=== PATIENT | male | born 1960 | race Caucasian/White ===

== ENCOUNTER → 2016-05-14 | Outpatient (CLI) | payer MEDICARE, OTHER ==
--- NOTE | 2016-05-14 10:43 | US ---
EXAMINATION TYPE: US abdomen complete DATE OF EXAM: 05/14/2016 9:50 AM COMPARISON: NONE CLINICAL HISTORY: R14.0 Abdominal Bloating,K21.9 Gastro Esoph Reflux. Left flank pain, history of kid mana stones EXAM MEASUREMENTS: Liver Length: 17.3 cm Gallbladder Wall: 0.2 cm CBD: 0.5 cm Spleen: 10.3 cm Right Kidney: 11.8 x 4.6 x 5.9 cm Left Kidney: 11.2 x 5.1 x 5.2 cm TECHNOLOGIST IMPRESSION: Pancreas: Obscured by overlying bowel gas Liver: heterogeneous Gallbladder: no evidence of stones Evidence for sonographic Allen's sign: no CBD: appears wnl Spleen: appears wnl Right Kidney: cystic area upper pole = 2.4 x 2.5 x 2.5cm Left Kidney: lobulated contour Upper IVC: appears wnl Abd Aorta: visualized portions appear wnl The liver is homogenous. The intrahepatic portion of the IVC and proximal abdominal aorta are within normal limits. There is no evidence of cholelithiasis. Common bile duct is unremarkable. The visu alized portions of the pancreas are homogenous. The spleen is unremarkable. Kidneys are symmetric a nd free of hydronephrosis. No renal lesions are seen. IMPRESSION: 1. Nonvisualization of the pancreas. 2. Simple appearing 2.5 cm right upper pole renal cyst.
== END | disposition home or self-care (01) ==
LOC: RADUSWWP 08:55
PROVIDERS: ATTEND Family Medicine
DX: N28.1 Cyst of kidney, acquired (principal); K21.9 Gastro-esophageal reflux disease without esophagitis; J44.1 Chronic obstructive pulmonary disease with (acute) exacerbation; R14.0 Abdominal distension (gaseous)
CPT/HCPCS: 76700

== ENCOUNTER → 2016-07-03 | Outpatient (CLI) | payer MEDICARE, OTHER ==
[2016-07-03 09:20] LABS: Basophils % (A) 0 %; Eosinophils # (A) 0.2 k/uL (0-0.7); Eosinophils % (A) 3 %; HCT 49.8 % (39.0-53.0); HDW 2.74; HGB 16.9 gm/dL (13.0-17.5); Luc # (Auto) 0.16; Luc % (Auto) 2; Lymphocytes # (A) 1.6 k/uL (1.0-4.8); Lymphocytes % (A) 23 %; MCH 32.2 pg (25.0-35.0); MCV 94.8 fL (80.0-100.0); Mean Platelet Volume 6.5; Monocytes # (A) 0.4 k/uL (0-1.0); Monocytes % (A) 6 %; Neutrophils # (A) 4.5 k/uL (1.3-7.7); Neutrophils % (A) 65 %; RBC 5.25 m/uL (4.30-5.90); WBC 6.8 k/uL (3.8-10.6); WBC (Perox) 7.35
[2016-07-03 09:28] LABS: ALT 38 U/L (21-72); AST 23 U/L (17-59); Alkaline Phosphatase 88 U/L (38-126); Amylase 54 U/L (30-110); Anion Gap 8 mmol/L; Blood Urea Nitrogen 10 mg/dL (9-20); Calcium 9.6 mg/dL (8.4-10.2); Carbon Dioxide 30 mmol/L (22-30); Chloride 102 mmol/L (98-107); Glucose 95 mg/dL (74-99); Non-African American GFR(MDRD) >60 (>60 ml/min/1.73 sqM); Potassium 4.2 mmol/L (3.5-5.1); Sodium 140 mmol/L (137-145); Total Protein 7.2 g/dL (6.3-8.2)
--- NOTE | 2016-07-03 09:59 | CT ---
EXAMINATION TYPE: CT abdomen pelvis wo/w con DATE OF EXAM: 07/03/2016 9:26 AM COMPARISON: Ultrasound 05/14/2016 HISTORY: 55-year-old male with change in bowel habits TECHNIQUE: Contiguous axial scanning of the abdomen and pelvis before and after administration of 100 ml Omnipaque 300 IV contrast. Delayed images through the kidneys and coronal/sagittal reconstructio ns performed. CT DLP: 2413.1 mGycm Automated exposure control for dose reduction was used. FINDINGS: The heart is normal size without pericardial effusion. Dependent atelectasis at the posterior lung ba ses. Strandy atelectasis inferior lingula and mild centrilobular emphysema seen in the lower lungs. N o pleural effusion. The liver is borderline in size measuring 17.9 cm craniocaudal. Initial noncontrast images show no ev idence for hepatic steatosis. No focal liver lesion is seen. No biliary ductal dilatation. Portal kimberli ous system is patent. Gallbladder, adrenal glands, spleen, and pancreas appear within normal limits. There is a 2.8 cm benign exophytic cyst from the lateral upper pole right kidney and cortical defect along the lateral mid pole left kidney suggesting prior vascular or infectious insult. Symmetric upta ke and excretion of contrast from the kidneys. No dilated small bowel, free fluid, or free air. Small fatty umbilical hernia. No mesenteric or retroperitoneal lymphadenopathy. Normal appendix. Oral contrast has progressed to the descending colon. There is mild to moderate stool burden and mild sigmoid diverticulosis without pericolonic inflammatory change. No suspicious annular narrowing or m ass by CT. Bladder is urine distended. No abnormal fluid collection in the pelvis or pelvic lymphadenopathy. Bones: Degenerative changes at the hips. Mild degenerative disc disease L5-S1. No osseous destructive process. IMPRESSION: 1. MILD TO MODERATE STOOL BURDEN AND SIGMOID DIVERTICULOSIS. NO EVIDENCE FOR ACUTE DIVERTICULITIS. 2. CENTRILOBULAR EMPHYSEMA AND SMALL FATTY UMBILICAL HERNIA.
[2016-07-03 10:07] LABS: C Reactive Protein <5.0 mg/L (<10.0)
[2016-07-03 12:01] LABS: Erythrocyte Sedimentation Rate 4 mm/hr (0-15)
== END | disposition home or self-care (01) ==
LOC: RADCTMAIN 08:41
DX: K57.30 Diverticulosis of large intestine without perforation or abscess without bleeding (principal); R19.5 Other fecal abnormalities; K42.9 Umbilical hernia without obstruction or gangrene
CPT/HCPCS: 80053; 85652; 83516; 82150; 83690; 85025; 86140; 74178; 36415; Q9967

== ENCOUNTER 2017-06-08 00:31 | Emergency (ER) | payer MEDICARE, OTHER ==
[2017-06-08 01:03] LABS: Basophils # (A) 0.1 k/uL (0-0.2); Basophils % (A) 1 %; Eosinophils # (A) 0.3 k/uL (0-0.7); Eosinophils % (A) 3 %; HCT 50.5 % (39.0-53.0); HGB 17.5 gm/dL (13.0-17.5); Lymphocytes # (A) 2.2 k/uL (1.0-4.8); Lymphocytes % (A) 25 %; MCH 32.9 pg (25.0-35.0); MCHC 34.7 g/dL (31.0-37.0); Mean Platelet Volume 6.7; Monocytes # (A) 0.5 k/uL (0-1.0); Monocytes % (A) 6 %; Neutrophils # (A) 5.7 k/uL (1.3-7.7); Neutrophils % (A) 63 %; Platelet Count 215 k/uL (150-450); RBC 5.32 m/uL (4.30-5.90); RDW 12.3 % (11.5-15.5)
[2017-06-08 01:09] LABS: Partial Thromboplastin Time 27.3 sec (22.0-30.0); Prothrombin Time 9.7 sec (9.0-12.0)
[2017-06-08 01:19] LABS: ALT 36 U/L (21-72); AST 29 U/L (17-59); Albumin 4.5 g/dL (3.5-5.0); Alkaline Phosphatase 94 U/L (38-126); Anion Gap 10 mmol/L; Blood Urea Nitrogen 13 mg/dL (9-20); Calcium 10.1 mg/dL (8.4-10.2); Carbon Dioxide 29 mmol/L (22-30); Chloride 101 mmol/L (98-107); Glucose 102 mg/dL (74-99); Potassium 4.6 mmol/L (3.5-5.1); Sodium 140 mmol/L (137-145); Total Bilirubin 0.6 mg/dL (0.2-1.3); Total Protein 7.3 g/dL (6.3-8.2)
--- NOTE | 2017-06-08 01:23 | ED ---
General Adult HPI - General Chief complaint: Shortness of Breath Stated complaint: Chest Pain Time Seen by Provider: 06/08/17 00:43 Source: patient, RN notes reviewed, old records reviewed Mode of arrival: wheelchair Limitations: no limitations - History of Present Illness Initial comments: 56-year-old male presenting for evaluation of chest pain. Patient states that throughout the day he has had some central chest heaviness. He states he does have history of COPD and his had a mild cough throughout the day. According to the patient his cough is no worse than his baseline cough. He is a current smoker, although he is quitting. Patient states that he's had several episodes of sharp intermittent left-sided chest pain which come and go quickly. He has also complained of some abdominal distention and bloating. Denies any significant abdominal pain at the time my evaluation. Patient denies nausea vomiting or diaphoresis. No known history of coronary artery disease, according to the patient had a heart catheterization 6 years ago which was normal. - Related Data Home Medications Medication Instructions Recorded Confirmed Fluticasone Propionate [Flonase] 2 spray EA NOSTRIL DAILY PRN 06/07/14 12/09/14 Fluticasone Propionate [Flovent 2 puff INHALATION BID 06/07/14 12/09/14 Hfa 110mcg] HYDROcodone/APAP 10-325MG [Lewis 1 each PO Q6H PRN 06/07/14 12/09/14 10] Ipratropium-Albuterol Nebulize 3 ml IH QID PRN 06/07/14 12/09/14 [Duoneb 0.5 mg-3 mg/3 ml Soln] LORazepam [Ativan] 1 mg PO BID PRN 06/07/14 12/09/14 Nystatin 100,000 Unit/ml Susp 5 ml PO QID PRN 06/07/14 12/09/14 [Mycostatin Oral Susp] Omeprazole [PriLOSEC] 20 mg PO AC-BRKFST 06/07/14 12/09/14 Allergies Allergy/AdvReac Type Severity Reaction Status Date / Time No Known Allergies Allergy Verified 12/09/14 19:59 Review of Systems ROS Statement: Those systems with pertinent positive or pertinent negative responses have been documented in the HPI. ROS Other: All systems not noted in ROS Statement are negative. Past Medical History Past Medical History: Asthma, COPD, Hypertension Additional Past Medical History / Comment(s): SHINGLES (NO OPEN LESIONS) History of Any Multi-Drug Resistant Organisms: None Reported Past Surgical History: Heart Catheterization Past Psychological History: Anxiety Smoking Status: Current every day smoker Past Alcohol Use History: None Reported Past Drug Use History: Marijuana General Exam Limitations: no limitations General appearance: alert, in no apparent distress Head exam: Present: atraumatic, normocephalic Eye exam: Present: normal appearance, PERRL ENT exam: Present: normal exam Neck exam: Present: normal inspection, tenderness Respiratory exam: Present: decreased breath sounds. Absent: wheezes Cardiovascular Exam: Present: regular rate, normal rhythm GI/Abdominal exam: Present: soft, distended. Absent: tenderness, guarding, rebound Extremities exam: Present: normal inspection, normal capillary refill, other ( Bilateral radial pulses symmetric). Absent: pedal edema Neurological exam: Present: alert, oriented X3, CN II-XII intact. Absent: motor sensory deficit Psychiatric exam: Present: normal affect, normal mood Skin exam: Present: warm, dry, intact. Absent: cyanosis, diaphoretic Course Vital Signs 06/08/17 06/08/17 06/08/17 00:33 00:54 02:00 Temperature 98.0 F Pulse Rate 89 82 Pulse Rate [ [address] ] Respiratory 16 20 Rate Blood Pressure 199/95 135/76 O2 Sat by Pulse 99 97 Oximetry EKG Findings - EKG Comments: EKG Findings:: EKG shows normal sinus rhythm, ventricular rate 83, OR interval 172, QRS duration 88, QTC 410, no ST segment elevation or depression Medical Decision Making - Medical Decision Making 56-year-old male presenting with chest pain. Patient has baseline chest tightness secondary to COPD. He states that today he developed some sharp chest pain. On initial evaluation, patient has significantly elevated blood pressure, this is the setting of sharp chest pain is concerning for aortic dissection as the patient is a long-time heavy smoker. CT angiography of the chest abdomen and pelvis is obtained, this is negative for dissection, negative for PE or aortic aneurysm. Chest x-ray shows no focal pneumonia or widened mediastinum. Laboratory studies including CBC and CMP are unremarkable. Initial troponin is negative. I would prefer the patient be observed for his chest pain although it is atypical, he does have significant risk factors for coronary artery disease. Patient refuses this, states he would like to be discharged and will follow-up with his primary care physician. I did have a discussion with the patient stating that a complete evaluation of his chest pain has not been completed he is aware and prefers to be discharged with outpatient follow-up - Lab Data Result diagrams: 06/08/17 00:45 06/08/17 00:45 Lab Results 06/08/17 06/08/17 06/08/17 Range/Units 00:45 00:45 00:45 WBC 9.0 (3.8-10.6) k/uL RBC 5.32 (4.30-5.90) m/uL Hgb 17.5 (13.0-17.5) gm/dL Hct 50.5 (39.0-53.0) % MCV 95.0 (80.0-100.0) fL MCH 32.9 (25.0-35.0) pg MCHC 34.7 (31.0-37.0) g/dL RDW 12.3 (11.5-15.5) % Plt Count 215 (150-450) k/uL Neutrophils % 63 % Lymphocytes % 25 % Monocytes % 6 % Eosinophils % 3 % Basophils % 1 % Neutrophils # 5.7 (1.3-7.7) k/uL Lymphocytes # 2.2 (1.0-4.8) k/uL Monocytes # 0.5 (0-1.0) k/uL Eosinophils # 0.3 (0-0.7) k/uL Basophils # 0.1 (0-0.2) k/uL PT (9.0-12.0) sec INR (<1.2) APTT (22.0-30.0) sec D-Dimer (<0.60) mg/L FEU Sodium 140 (137-145) mmol/L Potassium 4.6 (3.5-5.1) mmol/L Chloride 101 (98-107) mmol/L Carbon Dioxide 29 (22-30) mmol/L Anion Gap 10 mmol/L BUN 13 (9-20) mg/dL Creatinine 0.80 (0.66-1.25) mg/dL Est GFR (MDRD) Af Amer >60 (>60 ml/min/1.73 sqM) Est GFR (MDRD) Non-Af >60 (>60 ml/min/1.73 sqM) Glucose 102 H (74-99) mg/dL Calcium 10.1 (8.4-10.2) mg/dL Total Bilirubin 0.6 (0.2-1.3) mg/dL AST 29 (17-59) U/L ALT 36 (21-72) U/L Alkaline Phosphatase 94 (38-126) U/L Total Creatine Kinase 250 H (55-170) U/L CK-MB (CK-2) 1.8 (0.0-2.4) ng/mL CK-MB (CK-2) Rel Index 0.7 Troponin I <0.012 (0.000-0.034) ng/mL NT-Pro-B Natriuret Pep pg/mL Total Protein 7.3 (6.3-8.2) g/dL Albumin 4.5 (3.5-5.0) g/dL Lipase (23-300) U/L 06/08/17 06/08/17 06/08/17 Range/Units 00:45 00:45 00:45 WBC (3.8-10.6) k/uL RBC (4.30-5.90) m/uL Hgb (13.0-17.5) gm/dL Hct (39.0-53.0) % MCV (80.0-100.0) fL MCH (25.0-35.0) pg MCHC (31.0-37.0) g/dL RDW (11.5-15.5) % Plt Count (150-450) k/uL Neutrophils % % Lymphocytes % % Monocytes % % Eosinophils % % Basophils % % Neutrophils # (1.3-7.7) k/uL Lymphocytes # (1.0-4.8) k/uL Monocytes # (0-1.0) k/uL Eosinophils # (0-0.7) k/uL Basophils # (0-0.2) k/uL PT 9.7 (9.0-12.0) sec INR 1.0 (<1.2) APTT 27.3 (22.0-30.0) sec D-Dimer 0.24 (<0.60) mg/L FEU Sodium (137-145) mmol/L Potassium (3.5-5.1) mmol/L Chloride (98-107) mmol/L Carbon Dioxide (22-30) mmol/L Anion Gap mmol/L BUN (9-20) mg/dL Creatinine (0.66-1.25) mg/dL Est GFR (MDRD) Af Amer (>60 ml/min/1.73 sqM) Est GFR (MDRD) Non-Af (>60 ml/min/1.73 sqM) Glucose (74-99) mg/dL Calcium (8.4-10.2) mg/dL Total Bilirubin (0.2-1.3) mg/dL AST (17-59) U/L ALT (21-72) U/L Alkaline Phosphatase (38-126) U/L Total Creatine Kinase (55-170) U/L CK-MB (CK-2) (0.0-2.4) ng/mL CK-MB (CK-2) Rel Index Troponin I (0.000-0.034) ng/mL NT-Pro-B Natriuret Pep pg/mL Total Protein (6.3-8.2) g/dL Albumin (3.5-5.0) g/dL Lipase 231 (23-300) U/L 06/08/17 Range/Units 00:45 WBC (3.8-10.6) k/uL RBC (4.30-5.90) m/uL Hgb (13.0-17.5) gm/dL Hct (39.0-53.0) % MCV (80.0-100.0) fL MCH (25.0-35.0) pg MCHC (31.0-37.0) g/dL RDW (11.5-15.5) % Plt Count (150-450) k/uL Neutrophils % % Lymphocytes % % Monocytes % % Eosinophils % % Basophils % % Neutrophils # (1.3-7.7) k/uL Lymphocytes # (1.0-4.8) k/uL Monocytes # (0-1.0) k/uL Eosinophils # (0-0.7) k/uL Basophils # (0-0.2) k/uL PT (9.0-12.0) sec INR (<1.2) APTT (22.0-30.0) sec D-Dimer (<0.60) mg/L FEU Sodium (137-145) mmol/L Potassium (3.5-5.1) mmol/L Chloride (98-107) mmol/L Carbon Dioxide (22-30) mmol/L Anion Gap mmol/L BUN (9-20) mg/dL Creatinine (0.66-1.25) mg/dL Est GFR (MDRD) Af Amer (>60 ml/min/1.73 sqM) Est GFR (MDRD) Non-Af (>60 ml/min/1.73 sqM) Glucose (74-99) mg/dL Calcium (8.4-10.2) mg/dL Total Bilirubin (0.2-1.3) mg/dL AST (17-59) U/L ALT (21-72) U/L Alkaline Phosphatase (38-126) U/L Total Creatine Kinase (55-170) U/L CK-MB (CK-2) (0.0-2.4) ng/mL CK-MB (CK-2) Rel Index Troponin I (0.000-0.034) ng/mL NT-Pro-B Natriuret Pep 29 pg/mL Total Protein (6.3-8.2) g/dL Albumin (3.5-5.0) g/dL Lipase (23-300) U/L Disposition Clinical Impression: Chest pain Disposition: HOME SELF-CARE Condition: Fair Instructions: Chest Pain (ED) Additional Instructions: Patient will follow-up with his primary care physician, return with any worsening or changing symptoms. Referrals: Gerald Fernandez DO [Primary Care Provider] - 1-2 days Time of Disposition: 03:15
[2017-06-08 01:24] LABS: Creatine Kinase 250 U/L (55-170)
[2017-06-08 01:37] LABS: Troponin I <0.012 ng/mL (0.000-0.034)
[2017-06-08 01:42] LABS: Creatine Kinase MB 1.8 ng/mL (0.0-2.4)
--- NOTE | 2017-06-08 01:57 | XR ---
EXAMINATION TYPE: XR chest 2V DATE OF EXAM: 06/08/2017 COMPARISON: NONE HISTORY: Short of breath TECHNIQUE: Frontal and lateral views of the chest are obtained. FINDINGS: Heart and mediastinum are normal. Lungs are clear. Diaphragm is normal. Bony thorax is int act. Pulmonary vascularity is normal. There are chest leads. IMPRESSION: Normal chest
[2017-06-08] MEDS ORDERED: RX INFO: IV CONTRAST WAS GIVEN 1 EACH MISC MISCELLANE PRN (01:58)
--- NOTE | 2017-06-08 02:58 | CT ---
EXAMINATION TYPE: CT angio thoracic/abd aorta DATE OF EXAM: 06/08/2017 COMPARISON: NONE HISTORY: chest pain CT DLP: 2133.90 mGycm. Automated Exposure Control for Dose Reduction was Utilized. CONTRAST: CT scan of the thorax, abdomen and pelvis is performed with IV Contrast, patient injected with 100 mL of Omnipaque 350. FINDINGS: There are 3-D post processed images. There is mild pulmonary emphysema with bullous changes at the lung apices. There is normal branching pattern of the great vessels on the aortic arch. Thoracic aorta is intact without evidence of aneurys m or dissection. Ascending aorta measures 3.5 cm. There is no mediastinal adenopathy. There are no hi lar masses. Abdominal aorta has normal size without evidence of aneurysm or dissection. There is mild atheromatou s change in the iliac arteries. There is bilateral wide patency of the renal arteries. There is wide patency of the celiac artery and the superior mesenteric artery. Liver spleen pancreas appear normal. Bile ducts are not dilated. Gallbladder is somewhat contracted. Kidneys have normal contrast opacification. There is no hydronephrosis. There is a 3 cm cortical cyst on the lateral right kidney. There is no retroperitoneal adenopathy. I see no intestinal wall thicke musa. Appendix appears normal. There is arterial flow in the common internal and external iliac arter ies. There is arterial flow in both femoral arteries. I see no bony destructive process. Bladder dist ends smoothly. There is no evidence of a pelvic mass. CONCLUSION: Negative CT angiogram of the thoracic and abdominal aorta. Minimal atherosclerotic changes. No eviden ce of aneurysm or dissection. Pulmonary emphysema. Right renal cortical cyst.
[2017-06-08 03:17] VITALS: BP 124/76; PULSE 78; RESP 18; TEMP 97.6
== END 2017-06-08 03:21 | disposition home or self-care (01) ==
LOC: EC 00:31
DX: R07.9 Chest pain, unspecified (principal); R14.0 Abdominal distension (gaseous); R05 Cough; J44.9 Chronic obstructive pulmonary disease, unspecified; F17.200 Nicotine dependence, unspecified, uncomplicated; Z79.51 Long term (current) use of inhaled steroids; Z79.899 Other long term (current) drug therapy; Z95.9 Presence of cardiac and vascular implant and graft, unspecified
CPT/HCPCS: 36415; 93005; 85379; 83880; 80053; 82550; 82553; 83690; 84484; 85025; 85610; 85730; 71046; 75635; 71275; 99285; Q9967

== ENCOUNTER 2017-12-06 17:54 | Emergency (ER) | payer MEDICARE, OTHER ==
[2017-12-06 18:01] VITALS: BP 167/94; PULSE 82; RESP 20; TEMP 98.4
[2017-12-06] MEDS ORDERED: IBUPROFEN 600 MG TAB PO STA (18:18)
--- NOTE | 2017-12-06 19:05 | ED ---
Upper Extremity HPI - General Chief Complaint: Extremity Injury, Upper Stated Complaint: shoulder injury Time Seen by Provider: 12/06/17 18:10 Source: patient Mode of arrival: ambulatory Limitations: no limitations - History of Present Illness Initial Comments: This a 57yo male past medical history of chronic shoulder pain, asthma, hypertension and COPD with previous left shoulder surgery who presents today for chief complaint of right shoulder pain times one day. Patient states that he was trying out a tire off a tractor yesterday at 9 AM when he felt/heard a tearing in his right shoulder. Patient stated the pain radiated towards the right side of his neck and distal towards his elbow. Patient admitted to paresthesias. Patient denies any numbness, loss sensation or muscle weakness. Patient stated the pain is a 7/10 aching pain localized to the right anterior shoulder that increases to 10/10 sharp pain with movement. Patient does not know which specific movement causes increased pain. Patient has tried icing, taking Vicodin he has left over from previous injury and using cannabis for pain management. When the pain persisted today he decided to present to the emergency room for further evaluation. Patient denies any recent fever, chills, shortness of breath, chest pain, back pain, abdominal pain, nausea or vomiting, numbness or tingling, dysuria or hematuria, constipation or diarrhea, headaches or visual changes, or any other complaints. - Related Data Home Medications Medication Instructions Recorded Confirmed Fluticasone Propionate [Flonase] 2 spray EA NOSTRIL DAILY PRN 06/07/14 12/09/14 Fluticasone Propionate [Flovent 2 puff INHALATION BID 06/07/14 12/09/14 Hfa 110mcg] HYDROcodone/APAP 10-325MG [[place] 1 each PO Q6H PRN 06/07/14 12/09/14 10] Ipratropium-Albuterol Nebulize 3 ml IH QID PRN 06/07/14 12/09/14 [Duoneb 0.5 mg-3 mg/3 ml Soln] LORazepam [Ativan] 1 mg PO BID PRN 06/07/14 12/09/14 Nystatin 100,000 Unit/ml Susp 5 ml PO QID PRN 06/07/14 12/09/14 [Mycostatin Oral Susp] Omeprazole [PriLOSEC] 20 mg PO AC-BRKFST 06/07/14 12/09/14 Previous Rx's Medication Instructions Recorded Ibuprofen [Motrin] 800 mg PO Q8H PRN 7 Days #21 tab 12/06/17 Allergies Allergy/AdvReac Type Severity Reaction Status Date / Time varenicline [From Chantix] Allergy Unknown Verified 12/06/17 18:01 Review of Systems ROS Statement: Those systems with pertinent positive or pertinent negative responses have been documented in the HPI. ROS Other: All systems not noted in ROS Statement are negative. Constitutional: Denies: fever, chills ENT: Denies: ear pain, throat pain Respiratory: Denies: cough, dyspnea Cardiovascular: Denies: chest pain, palpitations, edema Gastrointestinal: Denies: abdominal pain, nausea, vomiting, diarrhea, constipation Genitourinary: Denies: urgency, dysuria, frequency Musculoskeletal: Reports: arthralgia Skin: Denies: rash, lesions Neurological: Denies: headache, weakness, numbness, paresthesias, confusion Past Medical History Past Medical History: Asthma, COPD, Hypertension Additional Past Medical History / Comment(s): SHINGLES (NO OPEN LESIONS) History of Any Multi-Drug Resistant Organisms: None Reported Past Surgical History: Heart Catheterization Past Psychological History: Anxiety Smoking Status: Current every day smoker Past Alcohol Use History: None Reported Past Drug Use History: Marijuana General Exam - General Exam Comments Initial Comments: General: The patient is awake and alert, in no distress, and does not appear acutely ill. Eye: Pupils are equal, extra-ocular movements are intact. No nystagmus. There is normal conjunctiva bilaterally. No signs of icterus. Neck: The neck is supple, there is no tenderness or JVD. Cardiovascular: There is a regular rate and rhythm. No murmur, rub or gallop is appreciated. Respiratory: Lungs are clear to auscultation, respirations are non-labored, breath sounds are equal. No wheezes, stridor, rales, or rhonchi. Musculoskeletal: No obvious defect or deformity. Full ROM with forward flexion , hyperextension, internal and external rotation at the shoulder b/l, pain which all movements especially forward flexion of the right shoulder. Strength 5/5 with all movements. Tenderness to palpation over the anterior shoulder, no pain over the scapula or clavicle. Sensation intact of the UE equally b/l. Radial pulses equal bilaterally 2+. Pt able to make the ok, thumbs up, finger opposition, fingers crossed, and stop signs with the hands b/l. Ulnar median and radial nerves intact. (+) Neers, (-) Drop Arm, no winging of scapula, (+) empty can Neurological: A&O x 3. CN II-XII intact, There are no obvious motor or sensory deficits. Coordination appears grossly intact. Speech is normal. Skin: Skin is warm and dry and no rashes or lesions are noted. Psychiatric: Cooperative, appropriate mood & affect, normal judgment. Limitations: no limitations Course Vital Signs 12/06/17 17:59 Temperature 98.4 F Pulse Rate 82 Respiratory 20 Rate Blood Pressure 167/94 O2 Sat by Pulse 98 Oximetry Medical Decision Making - Medical Decision Making 57yo male with cc of right shoulder pain concerning for possible dislocation, or muscular injury. Pt given ibuprofen for pain mgmt. XR obtained revealing (-) for acute fracture or dislocation. There is evidence of arthritis. X-rays reviewed by myself, Dr. Mcpherson in radiology. Given history and physical examination findings I have concern for possible ligamentous or muscular injury. Patient neurovascularly intact, compartments soft and compressible. Case discussed in detail Dr. Mcpherson at this time we feel patient would benefit from orthopedic surgery follow-up and RICE instructions. Patient was requesting a Toradol shot prior to discharge for pain management. Patient was discharged with orthopedic surgery follow-up 1-2 days, use of [id number] Tylenol or ibuprofen for pain management, ice for 20 minutes 3 times a day and no rigorous activity until further orthopedic evaluation. Patient agreed with plan, verbalizing agreement. Patient discharged in stable condition. Disposition Clinical Impression: Acute pain of right shoulder Disposition: HOME SELF-CARE Condition: Good Instructions: Shoulder Pain (ED) Additional Instructions: Please use medication as discussed. Please follow-up with orthopedic surgery in 2-3 days for further evaluation and treatment. Please return to emergency room if the symptoms increase or worsen or for any other concerns. Prescriptions: Ibuprofen [Motrin] 800 mg PO Q8H PRN 7 Days #21 tab PRN Reason: Pain Is patient prescribed a controlled substance at d/c from ED?: No Referrals: Gerald Fernandez DO [Primary Care Provider] - 1-2 days Mani Huynh PAC [PHYSICIAN [employer]ING MACHINE FEEDER] - 1-2 days Time of Disposition: 19:13
[2017-12-06] MEDS ORDERED: KETOROLAC 30 MG/ML 1 ML VIAL IM STA (19:15)
--- NOTE | 2017-12-06 19:25 | XR ---
EXAMINATION TYPE: XR shoulder complete RT DATE OF EXAM: 12/06/2017 CLINICAL HISTORY: Right shoulder pain TECHNIQUE: Three views of the right shoulder are obtained. COMPARISON: None. FINDINGS: There is no acute fracture/dislocation evident in the right shoulder. The acromioclavicul ar and glenohumeral joint spaces appear within normal limits. The visualized ribs are intact and unr emarkable. IMPRESSION: There is no acute fracture or dislocation in the right shoulder.
== END 2017-12-06 19:30 | disposition home or self-care (01) ==
LOC: EC 17:54
DX: M25.511 Pain in right shoulder (principal); J44.9 Chronic obstructive pulmonary disease, unspecified; F17.200 Nicotine dependence, unspecified, uncomplicated; Z79.51 Long term (current) use of inhaled steroids; Z79.899 Other long term (current) drug therapy; Z88.8 Allergy status to other drugs, medicaments and biological substances
CPT/HCPCS: 73030; 99283; 96372; J1885

== ENCOUNTER 2018-06-10 18:12 | Observation (INO) | payer MEDICARE ==
[2018-06-10] MEDS ORDERED: SODIUM CHLORIDE 0.9% 500 ML 500 ML IV STA (18:43)
[2018-06-10] MEDS ORDERED: PANTOPRAZOLE 40 MG/10 ML VIAL IVP STA (18:43)
--- NOTE | 2018-06-10 19:01 | ED ---
General Adult HPI - General Chief complaint: GI Bleed Stated complaint: Blood in stool, abd pain Time Seen by Provider: 06/10/18 18:33 Source: patient, RN notes reviewed, old records reviewed Mode of arrival: ambulatory - History of Present Illness Initial comments: 57-year-old male presented for evaluation of diffuse abdominal pain, rectal bleeding and diarrhea. Patient has had intermittent abdominal pain and rectal bleeding for several years. He has been evaluated by gastroenterology. He has been told that he had diverticulitis, told to get ulcerative colitis, then after his most recent colonoscopy was told he did not have ulcerative colitis. Symptoms have been progressive over the past one week. He has had rectal bleeding with mucus, and diarrhea. Mild nausea and vomiting. No upper abdominal pain, no chest pain. - Related Data Home Medications Medication Instructions Recorded Confirmed Omeprazole [PriLOSEC] 20 mg PO DAILY PRN 06/07/14 06/10/18 Albuterol Nebulized [Ventolin 2.5 mg INHALATION Q6H 06/10/18 06/10/18 Nebulized] Albuterol Sulfate [Proair Hfa] 2 puff INHALATION RT-Q6H PRN 06/10/18 06/10/18 Fluticasone/Vilanterol [Breo 1 puff INHALATION RT-DAILY 06/10/18 06/10/18 Ellipta 200-25 Mcg INH] Ipratropium Nebulized [Atrovent 0.5 mg INHALATION Q6HR 06/10/18 06/10/18 Nebulized 0.2 MG/ML] Magnesium 200 mg PO DAILY 06/10/18 06/10/18 Milk Thistle 150 mg PO DAILY 06/10/18 06/10/18 Multivitamins, Thera [Multivitamin 1 tab PO DAILY 06/10/18 06/10/18 (formulary)] Allergies Allergy/AdvReac Type Severity Reaction Status Date / Time varenicline [From Chantix] AdvReac suicidal Verified 06/10/18 18:38 thoughts Review of Systems ROS Statement: Those systems with pertinent positive or pertinent negative responses have been documented in the HPI. ROS Other: All systems not noted in ROS Statement are negative. Past Medical History Past Medical History: Asthma, COPD, Hypertension Additional Past Medical History / Comment(s): SHINGLES (NO OPEN LESIONS) History of Any Multi-Drug Resistant Organisms: None Reported Past Surgical History: Heart Catheterization Past Psychological History: Anxiety Smoking Status: Current every day smoker Past Alcohol Use History: None Reported Past Drug Use History: Marijuana General Exam General appearance: alert, in no apparent distress Head exam: Present: atraumatic, normocephalic Eye exam: Present: normal appearance, PERRL ENT exam: Present: normal exam Neck exam: Present: normal inspection. Absent: tenderness, meningismus Respiratory exam: Present: normal lung sounds bilaterally. Absent: respiratory distress, wheezes Cardiovascular Exam: Present: regular rate, normal rhythm GI/Abdominal exam: Present: soft, tenderness (Mild generalized tenderness to palpation). Absent: distended Extremities exam: Present: normal inspection, normal capillary refill Neurological exam: Present: alert, oriented X3 Psychiatric exam: Present: normal affect, normal mood Course Vital Signs 06/10/18 18:19 Temperature 98.9 F Pulse Rate 108 H Respiratory 16 Rate Blood Pressure 135/83 O2 Sat by Pulse 98 Oximetry Medical Decision Making - Medical Decision Making 57 old male with history concerning for colitis, diffuse abdominal pain, nausea , rectal bleeding with mucus. Patient states he did have history of ulcer colitis in the past. He has generalized tenderness to palpation. CT does show diffuse colitis. Patient has normal CBC, normal CMP. He will be For IV hydration, pain control, IV steroids. Gastroenterology placed on consult. Case discussed with admitting physician. - Lab Data Result diagrams: 06/10/18 19:05 06/10/18 19:05 Lab Results 06/10/18 06/10/18 06/10/18 Range/Units 19:05 19:05 19:05 WBC 9.1 (3.8-10.6) k/uL RBC 4.88 (4.30-5.90) m/uL Hgb 15.8 (13.0-17.5) gm/dL Hct 44.4 (39.0-53.0) % MCV 90.9 (80.0-100.0) fL MCH 32.3 (25.0-35.0) pg MCHC 35.5 (31.0-37.0) g/dL RDW 12.3 (11.5-15.5) % Plt Count 295 (150-450) k/uL Neutrophils % 69 % Lymphocytes % 14 % Monocytes % 8 % Eosinophils % 6 % Basophils % 0 % Neutrophils # 6.3 (1.3-7.7) k/uL Lymphocytes # 1.3 (1.0-4.8) k/uL Monocytes # 0.7 (0-1.0) k/uL Eosinophils # 0.6 (0-0.7) k/uL Basophils # 0.0 (0-0.2) k/uL PT (9.0-12.0) sec INR (<1.2) APTT (22.0-30.0) sec Sodium 137 (137-145) mmol/L Potassium 3.6 (3.5-5.1) mmol/L Chloride 102 (98-107) mmol/L Carbon Dioxide 25 (22-30) mmol/L Anion Gap 10 mmol/L BUN 9 (9-20) mg/dL Creatinine 0.77 (0.66-1.25) mg/dL Est GFR (CKD-EPI)AfAm >90 (>60 ml/min/1.73 sqM) Est GFR (CKD-EPI)NonAf >90 (>60 ml/min/1.73 sqM) Glucose 106 H (74-99) mg/dL Plasma Lactic Acid Arya 1.1 (0.7-2.0) mmol/L Calcium 8.9 (8.4-10.2) mg/dL Magnesium 2.0 (1.6-2.3) mg/dL Total Bilirubin 0.9 (0.2-1.3) mg/dL AST 24 (17-59) U/L ALT 36 (21-72) U/L Alkaline Phosphatase 90 (38-126) U/L Troponin I (0.000-0.034) ng/mL Total Protein 6.2 L (6.3-8.2) g/dL Albumin 3.6 (3.5-5.0) g/dL Lipase 53 (23-300) U/L 06/10/18 06/10/18 Range/Units 19:05 19:05 WBC (3.8-10.6) k/uL RBC (4.30-5.90) m/uL Hgb (13.0-17.5) gm/dL Hct (39.0-53.0) % MCV (80.0-100.0) fL MCH (25.0-35.0) pg MCHC (31.0-37.0) g/dL RDW (11.5-15.5) % Plt Count (150-450) k/uL Neutrophils % % Lymphocytes % % Monocytes % % Eosinophils % % Basophils % % Neutrophils # (1.3-7.7) k/uL Lymphocytes # (1.0-4.8) k/uL Monocytes # (0-1.0) k/uL Eosinophils # (0-0.7) k/uL Basophils # (0-0.2) k/uL PT 10.5 (9.0-12.0) sec INR 1.0 (<1.2) APTT 28.9 (22.0-30.0) sec Sodium (137-145) mmol/L Potassium (3.5-5.1) mmol/L Chloride (98-107) mmol/L Carbon Dioxide (22-30) mmol/L Anion Gap mmol/L BUN (9-20) mg/dL Creatinine (0.66-1.25) mg/dL Est GFR (CKD-EPI)AfAm (>60 ml/min/1.73 sqM) Est GFR (CKD-EPI)NonAf (>60 ml/min/1.73 sqM) Glucose (74-99) mg/dL Plasma Lactic Acid Arya (0.7-2.0) mmol/L Calcium (8.4-10.2) mg/dL Magnesium (1.6-2.3) mg/dL Total Bilirubin (0.2-1.3) mg/dL AST (17-59) U/L ALT (21-72) U/L Alkaline Phosphatase (38-126) U/L Troponin I <0.012 (0.000-0.034) ng/mL Total Protein (6.3-8.2) g/dL Albumin (3.5-5.0) g/dL Lipase (23-300) U/L Disposition Clinical Impression: Ulcerative colitis, Abdominal pain Disposition: ADMITTED IP TO THIS [facility] Condition: Stable Is patient prescribed a controlled substance at d/c from ED?: No Referrals: Gerald Fernandez DO [Primary Care Provider] - 1-2 days Decision to Admit Reason: Admit from EC Decision Date: 06/10/18 Decision Time: 21:24
[2018-06-10 19:40] LABS: Basophils % (A) 0 %; Eosinophils # (A) 0.6 k/uL (0-0.7); Eosinophils % (A) 6 %; HCT 44.4 % (39.0-53.0); HGB 15.8 gm/dL (13.0-17.5); Lymphocytes # (A) 1.3 k/uL (1.0-4.8); Lymphocytes % (A) 14 %; MCH 32.3 pg (25.0-35.0); MCHC 35.5 g/dL (31.0-37.0); MCV 90.9 fL (80.0-100.0); Mean Platelet Volume 6.8; Monocytes # (A) 0.7 k/uL (0-1.0); Monocytes % (A) 8 %; Neutrophils # (A) 6.3 k/uL (1.3-7.7); Neutrophils % (A) 69 %; Platelet Count 295 k/uL (150-450); RBC 4.88 m/uL (4.30-5.90); RDW 12.3 % (11.5-15.5); WBC 9.1 k/uL (3.8-10.6)
[2018-06-10 19:46] LABS: ALT 36 U/L (21-72); AST 24 U/L (17-59); Albumin 3.6 g/dL (3.5-5.0); Alkaline Phosphatase 90 U/L (38-126); Anion Gap 10 mmol/L; Blood Urea Nitrogen 9 mg/dL (9-20); Calcium 8.9 mg/dL (8.4-10.2); Carbon Dioxide 25 mmol/L (22-30); Chloride 102 mmol/L (98-107); Glucose 106 mg/dL (74-99); Lipase 53 U/L (23-300); Potassium 3.6 mmol/L (3.5-5.1); Sodium 137 mmol/L (137-145); Total Bilirubin 0.9 mg/dL (0.2-1.3); Total Protein 6.2 g/dL (6.3-8.2)
[2018-06-10 19:48] LABS: Partial Thromboplastin Time 28.9 sec (22.0-30.0); Prothrombin Time 10.5 sec (9.0-12.0)
[2018-06-10] MEDS ORDERED: methylPREDNISolone SOD SUCCI 125 MG/2 ML VIAL IV STA (20:42)
[2018-06-10] MEDS ORDERED: MORPHINE SULFATE 4 MG/ML SYRINGE IVP STA (20:44)
--- NOTE | 2018-06-10 20:49 | CT ---
EXAMINATION TYPE: CT abdomen pelvis w con DATE OF EXAM: 06/10/2018 COMPARISON: 07/03/2016 HISTORY: Generalized abdominal pain with bloody stools. CT DLP: 1272.9 mGycm Automated exposure control for dose reduction was used. TECHNIQUE: Helical acquisition of images was performed from the lung bases through the pelvis. CONTRAST: Performed without Oral Contrast and with IV Contrast, patient injected with 100 mL of Isovue 300. FINDINGS: There is mild pulmonary emphysema. There is no pleural effusion. Heart size is normal. There is no pe ricardial effusion. Liver shows no focal defect. The bile ducts are not dilated. Spleen appears normal. There is no pancr eatic mass. Gallbladder appears normal. There is 3 cm cortical cyst lateral right kidney. Kidneys angel w satisfactory contrast opacification. There is no hydronephrosis. Ureters are not dilated. There is no retroperitoneal adenopathy. There is no free fluid in the pelvis . Bladder is almost empty. There is mild wall thickening of the sigmoid colon. There is similar curry e involving the splenic flexure of the colon. Appendix appears normal. There is no mesenteric edema. There is no sign of free air. There is no ascites. IMPRESSION: THERE IS MILD WALL THICKENING OF THE SIGMOID COLON SUGGESTIVE OF MINIMAL COLITIS. MILD PULMONARY EMPH YSEMA. THERE ARE CHANGES OF COLITIS ALSO NOTED IN THE SPLENIC FLEXURE OF THE COLON. LARGE BOWEL ABNOR MALITY IS ESSENTIALLY NEW COMPARED TO OLD EXAM.
[2018-06-10] MEDS ORDERED: ONDANSETRON 4 MG/2 ML VIAL IVP PRN (21:20)
[2018-06-10] MEDS ORDERED: NALOXONE 0.4 MG/ML 1 ML VIAL IV PRN (21:20)
[2018-06-10] MEDS: SODIUM CHLORIDE 0.9% 1,000 ML IV SCH (21:43)
[2018-06-10 22:57] VITALS: BMI 31.4
[2018-06-10 23:16] VITALS: RESP 16
[2018-06-11] MEDS: methylPREDNISolone SOD SUCCI 125 MG/2 ML VIAL IV SCH ×3 (00:52→13:02)
[2018-06-11] MEDS: MORPHINE SULFATE 4 MG/ML SYRINGE IV PRN ×3 (00:52→08:32)
[2018-06-11 07:33] LABS: Glucose,Whole Blood 180 mg/dL (75-99)
[2018-06-11] MEDS: PANTOPRAZOLE 40 MG/10 ML VIAL IV SCH (08:23)
[2018-06-11] MEDS: INSULIN ASPART (NovoLOG) 100 UNIT/ML VIAL SQ SCH ×4 (08:23→22:00)
[2018-06-11] MEDS ORDERED: ALBUTEROL NEBULIZED 2.5 MG/3 ML INHALATION PRN (08:47)
[2018-06-11] MEDS ORDERED: IPRATROPIUM 0.5 MG/2.5 ML NEBU INHALATION SCH (09:00)
[2018-06-11] MEDS: MAGNESIUM OXIDE 400 MG TAB PO SCH (11:09)
[2018-06-11] MEDS: SYMBICORT 160-4.5 MCG INHALER INHALATION SCH ×2 (11:09→20:14)
[2018-06-11] MEDS: IPRATROPIUM-ALBUTEROL 3 ML NEB INHALATION SCH ×3 (11:09→20:14)
[2018-06-11] MEDS: SODIUM CHLORIDE 0.9% 1,000 ML IV SCH (11:19)
[2018-06-11 11:48] LABS: Glucose,Whole Blood 158 mg/dL (75-99)
--- NOTE | 2018-06-11 12:11 | P.CONS ---
History of Present Illness - Reason for Consult Consult date: 06/11/18 Ulcerative colitis Requesting physician: Yonas Livingston - Chief Complaint Abdominal pain and rectal bleeding - History of Present Illness 57-year-old male past medical history of hemachromatosis admitted with diffuse abdominal pain and rectal bleeding diarrhea chronically for several years duration but exacerbated over the last week. He has been told in the past that he has ulcerative colitis last colonoscopy [address] Quiroz; Dr. Quiroz's description of findings reported consistency with ulcerative colitis more predominantly in the sigmoid and rectum. Rectal biopsies reported chronic colitis. Patient is not on steroid or maintenance medications for his colitis. CT abdomen mild lr thickening of the sigmoid suggestive of minimal colitis as well as changes of colitis noted in the splenic flexure. No sign of free air or ascites. Receiving IV steroids. Hemoglobin 15.8. MCV 90. White count 9.1. INR 1.0. BUN 9. Creatinine 0.7. FOBT positive. Denies fever chills hematemesis or melena. 5-10 mixed bowel movements daily with blood sometimes mucus. No weight loss. He has several areas scabbed excoriated skin psoriasis type lesions on all extremities and trunk back without purulence. Review of Systems Constitutional: Denies fever, chills, sweats, weight gain, or loss. HEENT: Negative for migraines, blurred vision or loss, earaches, drainage, tinnitus, oral mucosal lesions, dysphagia, or odynophagia. Cardiac: Negative for chest pain, arrhythmias, or palpitation. Respiratory: Negative for shortness of breath, hemoptysis, cough, or sputum production. Gastrointestinal: See HPI for pertinent findings. Genitourinary: Negative for hematuria, urgency, frequency, polyuria, dysuria, or penile discharge. Musculoskeletal: Negative for muscle aches, swelling, arthritis, and arthralgias. Neurologic: Negative for stroke or TIA. Endocrine: Negative for thyroid problems. Skin: Negative for rash or itching. Psychiatric: Negative history for depression and anxiety Past Medical History Past Medical History: Asthma, COPD, Hypertension Additional Past Medical History / Comment(s): SHINGLES (NO OPEN LESIONS) History of Any Multi-Drug Resistant Organisms: None Reported Past Surgical History: Heart Catheterization Past Psychological History: Anxiety Smoking Status: Current every day smoker Past Alcohol Use History: None Reported Past Drug Use History: Marijuana Medications and Allergies Home Medications Medication Instructions Recorded Confirmed Type Omeprazole [PriLOSEC] 20 mg PO DAILY PRN 06/07/14 06/10/18 History Albuterol Nebulized [Ventolin 2.5 mg INHALATION Q6H 06/10/18 06/10/18 History Nebulized] Albuterol Sulfate [Proair Hfa] 2 puff INHALATION RT-Q6H PRN 06/10/18 06/10/18 History Fluticasone/Vilanterol [Breo 1 puff INHALATION RT-DAILY 06/10/18 06/10/18 History Ellipta 200-25 Mcg INH] Ipratropium Nebulized [Atrovent 0.5 mg INHALATION Q6HR 06/10/18 06/10/18 History Nebulized 0.2 MG/ML] Magnesium 200 mg PO DAILY 06/10/18 06/10/18 History Milk Thistle 150 mg PO DAILY 06/10/18 06/10/18 History Multivitamins, Thera [Multivitamin 1 tab PO DAILY 06/10/18 06/10/18 History (formulary)] Allergies Allergy/AdvReac Type Severity Reaction Status Date / Time varenicline [From Chantix] AdvReac suicidal Verified 06/10/18 18:38 thoughts Physical Exam Vitals: Vital Signs Temp Pulse Pulse Resp BP BP Pulse Ox 06/11/18 06:20 97.4 F L 80 16 113/65 96 06/10/18 23:14 97.4 F L 84 16 113/65 96 06/10/18 21:23 91 18 112/85 97 06/10/18 18:19 98.9 F 108 H 16 135/83 98 Intake and Output 06/10/18 06/11/18 06/11/18 22:59 06:59 14:59 Intake Total 240 Balance 240 Intake: Oral 240 Other: # Voids 1 Weight 93.894 kg General appearance: The patient is alert, oriented, in no acute distress. HET: Head is normocephalic and atraumatic. Pupils are equal and reactive. Oropharynx is clear without lesions. Neck: Supple without lymphadenopathy. Trachea midline. Heart: S1 S2. Regular rate and rhythm. Lungs: No crackles or wheezes are heard. Abdomen: Soft, mild tenderness to the bilateral lateral lower abdomen, nondistended with bowel sounds. No peritoneal signs. No palpable organomegaly or masses. Extremities: Multiple psoriatic looking lesions on all extremities trunk and back without drainage or purulence. Neurological: No focal deficits. Strength and sensation are grossly intact. Results CBC & Chem 7: 06/10/18 19:05 06/10/18 19:05 Labs: Abnormal Lab Results - Last 24 Hours (Table) 06/10/18 06/11/18 Range/Units 19:05 07:16 Glucose 106 H (74-99) mg/dL POC Glucose (mg/dL) 180 H (75-99) mg/dL Total Protein 6.2 L (6.3-8.2) g/dL CT scan - abdomen: report reviewed (Dr. Estevez) Assessment and Plan (1) Rectal bleeding Narrative/Plan: 57-year-old gentleman with reported history of ulcerative colitis and hemachromatosis presents with intermittent rectal bleeding several years duration with lower abdominal discomfort possible exacerbation of ulcerative colitis proctitis underlying superimposed infectious colitis cannot be excluded. Last colonoscopy in 2014 supported evidence of rectosigmoid ulcerative colitis rectal biopsies confirmed chronic colitis. Current Visit: Yes Status: Acute Code(s): K62.5 - HEMORRHAGE OF ANUS AND RECTUM SNOMED Code(s): 29072035 (2) Colitis Current Visit: Yes Status: Acute Code(s): K52.9 - NONINFECTIVE GASTROENTERITIS AND COLITIS, UNSPECIFIED SNOMED Code(s): 17905310 (3) Abdominal pain Current Visit: Yes Status: Acute Code(s): R10.9 - UNSPECIFIED ABDOMINAL PAIN SNOMED Code(s): 29181387 Plan: 1. 1. Recommend outpatient colonoscopy this is scheduled for June 17. Wean off IV steroids taper down the prednisone 40 mg daily with a 5 mg decrease every 7 days. GI office will provide bowel prep and prednisone taper. Sed rate CRP. Daily CBC. Clear liquid diet. Previous endoscopic records/ biopsies last colonoscopy [address] Quiroz reviewed by Dr. Estevez. Thank you for this kind referral and the opportunity to participate in the care of your patient. This consultation was discussed with Dr. Estevez. The impression and plan of care have been directed as dictated.
[2018-06-11] MEDS: MULTIVITAMINS, THERA 1 EACH TAB PO SCH (12:51)
[2018-06-11] MEDS: HYDROcodone/APAP 5-325MG 1 EACH TAB PO PRN ×2 (13:01→20:10)
--- NOTE | 2018-06-11 14:12 | P.HPIM ---
History of Present Illness 57-year-old pleasant male came in with compensative for hematochezia diarrhea multiple episodes has been going on for about 3 weeks. Patient does have history of ulcerative colitis which was diagnosed in 2015 via colonoscopy and biopsy of those biopsy results are not available at this time but coloscopy is pretty convincing for ulcerative colitis. Patient is a pancolitis and involving the rectum and sigmoid at that time does have minimal R chronic colitis involving the whole colon. Patient was complaining of abdominal pain 7/ 10 severity sharp in nature and nonradiating. Diffuse. CAT scan of the abdomen did show colitis in the rectum and sigmoid again. Patient is not on any medications for ulcerative colitis. Patient does have skin lesions consistent with erythema nodosum diffusely predominantly in the right arm. Review of Systems REVIEW OF SYSTEMS: CONSTITUTIONAL: No fever, no malaise, no fatigue. HEENT: No recent visual problems or hearing problems. Denied any sore throat. CARDIOVASCULAR: No chest pain, orthopnea, PND, no palpitations, no syncope. PULMONARY: No shortness of breath, no cough, no hemoptysis. GASTROINTESTINAL: as mentioned in HPI NEUROLOGICAL: No headaches, no weakness, no numbness. HEMATOLOGICAL: Denies any bleeding or petechiae. GENITOURINARY: Denies any burning micturition, frequency, or urgency. MUSCULOSKELETAL/RHEUMATOLOGICAL: Denies any joint pain, swelling, or any muscle pain. ENDOCRINE: Denies any polyuria or polydipsia. The rest of the 14-point review of systems is negative. Past Medical History Past Medical History: Asthma, COPD, Hypertension Additional Past Medical History / Comment(s): SHINGLES (NO OPEN LESIONS) History of Any Multi-Drug Resistant Organisms: None Reported Past Surgical History: Heart Catheterization Past Psychological History: Anxiety Smoking Status: Current every day smoker Past Alcohol Use History: None Reported Past Drug Use History: Marijuana Medications and Allergies Home Medications Medication Instructions Recorded Confirmed Type Omeprazole [PriLOSEC] 20 mg PO DAILY PRN 06/07/14 06/10/18 History Albuterol Nebulized [Ventolin 2.5 mg INHALATION Q6H 06/10/18 06/10/18 History Nebulized] Albuterol Sulfate [Proair Hfa] 2 puff INHALATION RT-Q6H PRN 06/10/18 06/10/18 History Fluticasone/Vilanterol [Breo 1 puff INHALATION RT-DAILY 06/10/18 06/10/18 History Ellipta 200-25 Mcg INH] Ipratropium Nebulized [Atrovent 0.5 mg INHALATION Q6HR 06/10/18 06/10/18 History Nebulized 0.2 MG/ML] Magnesium 200 mg PO DAILY 06/10/18 06/10/18 History Milk Thistle 150 mg PO DAILY 06/10/18 06/10/18 History Multivitamins, Thera [Multivitamin 1 tab PO DAILY 06/10/18 06/10/18 History (formulary)] Allergies Allergy/AdvReac Type Severity Reaction Status Date / Time varenicline [From Chantix] AdvReac suicidal Verified 06/10/18 18:38 thoughts Physical Exam Vitals: Vital Signs Temp Pulse Pulse Resp BP BP Pulse Ox 06/11/18 11:20 80 06/11/18 11:11 82 06/11/18 06:20 97.4 F L 80 16 113/65 96 06/10/18 23:14 97.4 F L 84 16 113/65 96 06/10/18 21:23 91 18 112/85 97 06/10/18 18:19 98.9 F 108 H 16 135/83 98 Intake and Output 06/10/18 06/11/18 06/11/18 22:59 06:59 14:59 Intake Total 240 120 Balance 240 120 Intake: Oral 240 120 Other: # Voids 1 Weight 93.894 kg 93.894 kg PHYSICAL EXAMINATION: GENERAL: The patient is alert and oriented x3, not in any acute distress. Well developed, well nourished. HEENT: Pupils are round and equally reacting to light. EOMI. No scleral icterus. No conjunctival pallor. Normocephalic, atraumatic. No pharyngeal erythema. No thyromegaly. CARDIOVASCULAR: S1 and S2 present. No murmurs, rubs, or gallops. PULMONARY: Chest is clear to auscultation, no wheezing or crackles. ABDOMEN: Soft, nontender, nondistended, normoactive bowel sounds. No palpable organomegaly. MUSCULOSKELETAL: No joint swelling or deformity. EXTREMITIES: No cyanosis, clubbing, or pedal edema. NEUROLOGICAL: Gross neurological examination did not reveal any focal deficits. SKIN: skin lesions and multiple areas of the body predominantly in the right arm consistent with erythema nodosum Results CBC & Chem 7: 06/10/18 19:05 06/10/18 19:05 Labs: Abnormal Lab Results - Last 24 Hours (Table) 06/10/18 06/11/18 06/11/18 Range/Units 19:05 07:16 11:06 ESR 20 H (0-15) mm/hr Glucose 106 H (74-99) mg/dL POC Glucose (mg/dL) 180 H (75-99) mg/dL C-Reactive Protein (<10.0) mg/L Total Protein 6.2 L (6.3-8.2) g/dL 06/11/18 06/11/18 Range/Units 11:06 11:43 ESR (0-15) mm/hr Glucose (74-99) mg/dL POC Glucose (mg/dL) 158 H (75-99) mg/dL C-Reactive Protein 48.8 H (<10.0) mg/L Total Protein (6.3-8.2) g/dL Thrombosis Risk Factor Assmnt - Choose All That Apply Each Factor Represents 1 point: Age 41-60 years, Obesity (BMI >25) Other Risk Factors: No Other congenital or acquired thrombophilia - If yes, enter type in comment: No Thrombosis Risk Factor Assessment Total Risk Factor Score: 2 Thrombosis Risk Factor Assessment Level: Low Risk Assessment and Plan Plan: -ulcerative colitis flareup R exacerbation: Patient will continue on systemic steroids will advance her diet. Tpatient's symptoms improve patient probably can be discharged tomorrow. Morphine and will discuss reviewed and patient was started on Toradol along with GI prophylaxis. Toradol will be helpful for erythema nodosum as well as ulcerative colitis inflammation and for pain. -COPD without any acute exacerbation nicotine cessation counseling was provided patient is trying to quit smoking -Nicotine abuse -gastroesophageal reflux disease early ablation and patient will not need pharmacologic DVT prophylaxis and patient will require GI prophylaxis
[2018-06-11] MEDS: KETOROLAC 30 MG/ML 1 ML VIAL IVP PRN ×2 (17:02→22:02)
[2018-06-11 17:30] LABS: Glucose,Whole Blood 128 mg/dL (75-99)
[2018-06-11] MEDS ORDERED: methylPREDNISolone SOD SUCCI 125 MG/2 ML VIAL IVP SCH (18:00)
[2018-06-11 20:49] LABS: Glucose,Whole Blood 144 mg/dL (75-99)
[2018-06-11] MEDS: methylPREDNISolone SOD SUCCI 40 MG/ML 1 ML VIAL IVP SCH (22:02)
[2018-06-12] MEDS: IPRATROPIUM-ALBUTEROL 3 ML NEB INHALATION SCH ×3 (00:17→11:35)
[2018-06-12] MEDS: DICYCLOMINE 20 MG TAB PO PRN ×2 (02:01→08:57)
[2018-06-12] MEDS: SODIUM CHLORIDE 0.9% 1,000 ML IV SCH ×2 (02:02→13:22)
[2018-06-12] MEDS: HYDROcodone/APAP 5-325MG 1 EACH TAB PO PRN ×2 (06:20→10:13)
[2018-06-12 07:07] LABS: Glucose,Whole Blood 134 mg/dL (75-99)
[2018-06-12] MEDS: SYMBICORT 160-4.5 MCG INHALER INHALATION SCH (07:27)
[2018-06-12] MEDS: methylPREDNISolone SOD SUCCI 40 MG/ML 1 ML VIAL IVP SCH (08:56)
[2018-06-12] MEDS: MULTIVITAMINS, THERA 1 EACH TAB PO SCH (08:56)
[2018-06-12] MEDS: MAGNESIUM OXIDE 400 MG TAB PO SCH (08:56)
[2018-06-12] MEDS: INSULIN ASPART (NovoLOG) 100 UNIT/ML VIAL SQ SCH ×2 (08:57→12:46)
[2018-06-12] MEDS: PANTOPRAZOLE 40 MG/10 ML VIAL IV SCH (08:57)
[2018-06-12] MEDS ORDERED: predniSONE 20 MG TAB PO SCH (11:00)
[2018-06-12 12:00] LABS: Glucose,Whole Blood 134 mg/dL (75-99)
--- NOTE | 2018-06-12 12:57 | PN ---
PROGRESS NOTE DATE OF DICTATION: 06/12/2018 This patient is a 57-year-old pleasant white male with history of ulcerative colitis, admitted to the hospital with abdominal pain and diarrhea with rectal bleeding for the last few weeks' duration. He was started on empiric Solu-Medrol 40 mg q.12 hours and is feeling much better. The abdominal pain has resolved. He did have 3 loose watery bowel movements today, but no blood in the stool. He denies any nausea, vomiting. No fever, chills or night sweats. PHYSICAL EXAMINATION: He appears comfortable. No apparent distress. Vital signs are stable. Blood pressure is 132/86, pulse rate 80 per minute and afebrile. HEENT EXAMINATION: Unremarkable. Conjunctivae are pink, sclerae anicteric. Oral cavity with no lesions. NECK: No JVD or lymph node enlargement. Chest was clear to auscultation. HEART: Regular rate and rhythm. ABDOMEN: Soft. Bowel sounds are positive. No organomegaly. EXTREMITIES: No pedal edema. SKIN: No rashes. NEURO: Alert and oriented x3. No focal deficits. LABS: Labs done at the time of admission to the hospital on June 10 showed hemoglobin 15.8. No labs for the last 3 days. IMPRESSION: Exacerbation of ulcerative colitis, on IV Solu-Medrol 40 mg q.12 hours, and the symptoms are gradually improving. He had 3 bowel movements today with no blood in the stool. RECOMMENDATIONS: 1. Discontinue IV Solu-Medrol. 2. Start on prednisone 40 mg daily. He was advised to taper it by 5 mg every week. 3. He can be discharged home today. 4. He is already scheduled for colonoscopy on outpatient basis by Dr. Estevez next week. Thank you for this consultation. MMODL / IJN: [id number] /
[2018-06-12 15:14] VITALS: BP 117/65; PULSE 64; TEMP 98.8
--- NOTE | 2018-06-12 15:23 | P.DS ---
Providers Date of admission: 06/10/18 21:24 Attending physician: Yonas Livingston Consults: 06/10/18 21:20 Consult Physician Routine Consulting Provider: Corey Solomon Consult Reason/Comments: UC Do you want consulting provider notified?: Yes [facility] Course: 57-year-old pleasant male came in with compensative for hematochezia diarrhea multiple episodes has been going on for about 3 weeks. Patient does have history of ulcerative colitis which was diagnosed in 2014 via colonoscopy and biopsy of those biopsy results are not available at this time but coloscopy is pretty convincing for ulcerative colitis. Patient is a pancolitis and involving the rectum and sigmoid at that time does have minimal R chronic colitis involving the whole colon. Patient was complaining of abdominal pain 7/ 10 severity sharp in nature and nonradiating. Diffuse. CAT scan of the abdomen did show colitis in the rectum and sigmoid again. Patient is not on any medications for ulcerative colitis. Patient does have skin lesions consistent with erythema nodosum diffusely predominantly in the right arm. 06/12/2018 Patient's symptoms improved clinically doing well. Patient's skin lesions that better as well. Patient will be discharged on nonsteroidal inflammatory his prednisone Prilosec and Bentyl. PHYSICAL EXAMINATION: GENERAL: The patient is alert and oriented x3, not in any acute distress. Well developed, well nourished. HEENT: Pupils are round and equally reacting to light. EOMI. No scleral icterus. No conjunctival pallor. Normocephalic, atraumatic. No pharyngeal erythema. No thyromegaly. CARDIOVASCULAR: S1 and S2 present. No murmurs, rubs, or gallops. PULMONARY: Chest is clear to auscultation, no wheezing or crackles. ABDOMEN: Soft, nontender, nondistended, normoactive bowel sounds. No palpable organomegaly. MUSCULOSKELETAL: No joint swelling or deformity. EXTREMITIES: No cyanosis, clubbing, or pedal edema. NEUROLOGICAL: Gross neurological examination did not reveal any focal deficits. SKIN: skin lesions and multiple areas of the body predominantly in the right arm consistent with erythema nodosum Assessment and Plan Plan: -ulcerative colitis flareup/ exacerbation: -COPD without any acute exacerbation nicotine cessation counseling was provided patient is trying to quit smoking -Nicotine abuse -gastroesophageal reflux disease Patient Condition at Discharge: Stable Plan - Discharge Summary New Discharge Prescriptions: New Ibuprofen [Motrin] 400 mg PO Q6HR PRN #30 tab PRN Reason: Pain predniSONE 10 mg PO DAILY #30 tab Dicyclomine [Bentyl] 20 mg PO QID PRN #60 tab PRN Reason: Diarrhea Continue Omeprazole [PriLOSEC] 20 mg PO DAILY PRN PRN Reason: Heartburn Multivitamins, Thera [Multivitamin (formulary)] 1 tab PO DAILY Albuterol Sulfate [Proair Hfa] 2 puff INHALATION RT-Q6H PRN PRN Reason: Shortness Of Breath Ipratropium Nebulized [Atrovent Nebulized 0.2 MG/ML] 0.5 mg INHALATION Q6HR Fluticasone/Vilanterol [Breo Ellipta 200-25 Mcg INH] 1 puff INHALATION RT- DAILY Albuterol Nebulized [Ventolin Nebulized] 2.5 mg INHALATION Q6H Milk Thistle 150 mg PO DAILY Magnesium 200 mg PO DAILY Discharge Medication List Omeprazole [PriLOSEC] 20 mg PO DAILY PRN 06/07/14 [History] Albuterol Nebulized [Ventolin Nebulized] 2.5 mg INHALATION Q6H 06/10/18 [History ] Albuterol Sulfate [Proair Hfa] 2 puff INHALATION RT-Q6H PRN 06/10/18 [History] Fluticasone/Vilanterol [Breo Ellipta 200-25 Mcg INH] 1 puff INHALATION RT-DAILY 06/10/18 [History] Ipratropium Nebulized [Atrovent Nebulized 0.2 MG/ML] 0.5 mg INHALATION Q6HR [History] Magnesium 200 mg PO DAILY 06/10/18 [History] Milk Thistle 150 mg PO DAILY 06/10/18 [History] Multivitamins, Thera [Multivitamin (formulary)] 1 tab PO DAILY 06/10/18 [History ] Dicyclomine [Bentyl] 20 mg PO QID PRN #60 tab 06/12/18 [Rx] Ibuprofen [Motrin] 400 mg PO Q6HR PRN #30 tab 06/12/18 [Rx] predniSONE 10 mg PO DAILY #30 tab 06/12/18 [Rx] Follow up Appointment(s)/Referral(s): Gerald Fernandez DO [Primary Care Provider] - 3 Days Patient Instructions/Handouts: Ulcerative Colitis (DC) Activity/Diet/Wound Care/Special Instructions: Colonoscopy scheduled , 06/17/[address] Estevez @[facility]. Pre-surgical screening will notify patient with additional instructions and arrival time. Discharge Disposition: HOME SELF-CARE
== END 2018-06-12 14:53 | disposition home or self-care (01) ==
LOC: EC 18:12 → INTOOBSV 21:24 → 4MS4W 21:24
PROVIDERS: ADMIT Hospitalist; ATTEND Hospitalist
DX: K51.90 Ulcerative colitis, unspecified, without complications (principal); L52 Erythema nodosum; K21.9 Gastro-esophageal reflux disease without esophagitis; J44.9 Chronic obstructive pulmonary disease, unspecified; I10 Essential (primary) hypertension; F41.9 Anxiety disorder, unspecified; F17.200 Nicotine dependence, unspecified, uncomplicated; E66.9 Obesity, unspecified; Z68.31 Body mass index [BMI] 31.0-31.9, adult; Z79.51 Long term (current) use of inhaled steroids; Z79.899 Other long term (current) drug therapy; Z88.8 Allergy status to other drugs, medicaments and biological substances; Z86.19 Personal history of other infectious and parasitic diseases
CPT/HCPCS: 96376 ×2; 96361 ×2; 96375 ×2; 96374; 99285; 36415; 94640; 80053; 85652; 83605; 83690; 83735; 84484; 85025; 85610; 85730; 86140; 82272; 74177; G0378 ×3; J2270 ×2; J2920 ×2; J2930 ×2; J2405; J1885; J7512; C9113 ×3; Q9967

== ENCOUNTER 2018-06-17 12:53 | Day surgery (SDC) | payer MEDICARE ==
[2018-06-16 11:45] VITALS: BMI 31.4
[~2018-06-17 12:53] MED LIST: LACTATED RINGERS 1,000 ML IV SCH; LIDOCAINE 1% 20 ML VIAL (10MG/ML) FOR IV START INTRADERMA PRN
[2018-06-17 13:14] VITALS: RESP 16; TEMP 97.2
[2018-06-17 13:19] LABS: Glucose,Whole Blood 103 mg/dL (75-99)
[2018-06-17] MEDS ORDERED: LIDOCAINE 1% INJ 10MG/ML (20 ML MDV) ONE (13:39)
[2018-06-17] MEDS ORDERED: PROPOFOL 10 MG/ML 20 ML VIAL IV ONE (13:39)
--- NOTE | 2018-06-17 14:27 | P.PCN ---
Date of Procedure: 06/17/18 Description of Procedure: BRIEF HISTORY: 57-year-old male past medical history of hemachromatosis admitted with diffuse abdominal pain and rectal bleeding diarrhea chronically for several years duration but exacerbated over the last few weeks. He has been told in the past that he has ulcerative colitis last colonoscopy [address] Quiroz; Dr. Quiroz's description of findings reported consistency with ulcerative colitis more predominantly in the sigmoid and rectum. Rectal biopsies reported chronic colitis. Patient is not on steroid or maintenance medications for his colitis. CT abdomen mild lr thickening of the sigmoid suggestive of minimal colitis as well as changes of colitis noted in the splenic flexure. PROCEDURE PERFORMED: Incomplete/aborted colonoscopy with biopsies. PREOPERATIVE DIAGNOSIS: History ulcerative colitis, abdominal pain, blood per rectum. ESTIMATED BLOOD LOSS: Minimal. IV sedation per Anesthesia. PROCEDURE: After informed consent was obtained, the patient, was brought into the endoscopy unit. IV sedation was administered by Anesthesia under continuous monitoring. Digital rectal examination was normal. Initially the Olympus CF-190 flexible video colonoscope was then inserted in the rectum, gradually advanced into the left colon, approximately 50 cm from the anal verge with the procedure was aborted due to edema, and friability and difficulty advancing the endoscope. Careful examination was performed as the scope was gradually being withdrawn. Prep was fair. Mucosa of the entire examined colon was significant for erythema, edema and friability and random biopsies were taken every 10 cm starting at 50 cm from the anal verge. Retroflexion was performed in the rectum and no lesions were seen. The patient tolerated the procedure well. IMPRESSION: 1. Moderate to severe active colitis. 2. Random biopsies taken every centimeter from 50 cm from the anal verge. 3. Incomplete/aborted colonoscopy. RECOMMENDATIONS: Findings of this examination were discussed with the patient and his . Await pathology from biopsies. Patient should be on steroid therapy until decision about maintenance medication can be made with the patient based on biopsies and symptoms. He will need a repeat colonoscopy in 3-6 months due to incomplete/aborted colonoscopy.
[2018-06-17 14:29] VITALS: PULSE 88
[2018-06-17 14:42] VITALS: BP 135/66
== END 2018-06-17 15:02 | disposition home or self-care (01) ==
LOC: ORWHC2ENDO 12:53
PROVIDERS: ATTEND Internal Medicine
DX: K51.90 Ulcerative colitis, unspecified, without complications (principal); Z53.09 Procedure and treatment not carried out because of other contraindication; J44.9 Chronic obstructive pulmonary disease, unspecified; I10 Essential (primary) hypertension; Z88.8 Allergy status to other drugs, medicaments and biological substances; F17.200 Nicotine dependence, unspecified, uncomplicated; Z79.891 Long term (current) use of opiate analgesic; Z79.899 Other long term (current) drug therapy
CPT/HCPCS: 88305; 45331; J2001; J2704; 45380

== ENCOUNTER → 2018-07-02 | Outpatient (CLI) | payer MEDICARE ==
[2018-07-02 14:34] LABS: HCT 42.9 % (39.0-53.0); MCHC 32.6 g/dL (31.0-37.0); MCV 95.1 fL (80.0-100.0); Mean Platelet Volume 6.3; Platelet Count 262 k/uL (150-450); RBC 4.51 m/uL (4.30-5.90); RDW 13.2 % (11.5-15.5); WBC 8.9 k/uL (3.8-10.6)
[2018-07-02 16:48] LABS: Erythrocyte Sedimentation Rate 35 mm/hr (0-15)
[2018-07-02 19:42] LABS: Albumin 3.6 g/dL (3.80-4.90); Albumin/Globulin Ratio 1.89 (1.60-3.17); Anion Gap 1.6 mmol/L (4.00-12.00); C Reactive Protein 4.8 mg/dL (0.0-0.8); Calcium 8.6 mg/dL (8.7-10.3); Carbon Dioxide 31.4 mmol/L (21.6-31.8); Globulin 1.9 g/dL (1.6-3.3); Potassium 4.3 mmol/L (3.5-5.5); Total Bilirubin 0.5 mg/dL (0.3-1.2); Total Protein 5.5 g/dL (6.2-8.2)
[2018-07-02 20:27] LABS: Hepatitis B Surface AB- Quant 3.5 mIU/mL; Hepatitis C IgG Antibody Non-Reactive (Non-Reactive)
== END | disposition home or self-care (01) ==
LOC: LABWHC1 13:31
PROVIDERS: ATTEND Internal Medicine
DX: K51.50 Left sided colitis without complications (principal)
CPT/HCPCS: 36415; 80053; 85027; 85652; 86140; 86480; 86706; 86803; 87340

== ENCOUNTER 2018-08-16 19:20 | Emergency (ER) | payer MEDICARE ==
[2018-08-16 19:27] VITALS: TEMP 98.3
[2018-08-16] MEDS ORDERED: SODIUM CHLORIDE 0.9% 1,000 ML IV STA (20:32)
[2018-08-16 21:11] LABS: Basophils % (A) 0 %; Eosinophils # (A) 0.4 k/uL (0-0.7); Eosinophils % (A) 4 %; HCT 36.3 % (39.0-53.0); HGB 12.3 gm/dL (13.0-17.5); Lymphocytes # (A) 1.5 k/uL (1.0-4.8); Lymphocytes % (A) 17 %; MCH 30.6 pg (25.0-35.0); MCV 90.2 fL (80.0-100.0); Mean Platelet Volume 6.1; Monocytes # (A) 0.4 k/uL (0-1.0); Monocytes % (A) 5 %; Neutrophils # (A) 6.5 k/uL (1.3-7.7); Neutrophils % (A) 72 %; Platelet Count 398 k/uL (150-450); RBC 4.03 m/uL (4.30-5.90); RDW 13.7 % (11.5-15.5)
[2018-08-16 21:21] LABS: ALT 24 U/L (21-72); AST 18 U/L (17-59); Albumin 2.5 g/dL (3.5-5.0); Alkaline Phosphatase 80 U/L (38-126); Anion Gap 2 mmol/L; Blood Urea Nitrogen 7 mg/dL (9-20); Carbon Dioxide 28 mmol/L (22-30); Chloride 104 mmol/L (98-107); Glucose 90 mg/dL (74-99); Lipase 61 U/L (23-300); Partial Thromboplastin Time 30.6 sec (22.0-30.0); Potassium 3.7 mmol/L (3.5-5.1); Prothrombin Time 10.5 sec (9.0-12.0); Sodium 134 mmol/L (137-145); Total Bilirubin 0.2 mg/dL (0.2-1.3); Total Protein 5.2 g/dL (6.3-8.2)
--- NOTE | 2018-08-16 21:39 | CT ---
EXAMINATION TYPE: CT abdomen pelvis w con DATE OF EXAM: 08/16/2018 COMPARISON: 06/10/2018 HISTORY: Abdominal pain. History of ulcerative colitis. Pain CT DLP: 1095.3 mGycm Automated exposure control for dose reduction was used. TECHNIQUE: Helical acquisition of images was performed from the lung bases through the pelvis. CONTRAST: Performed without Oral Contrast and with IV Contrast, patient injected with 100ml mL of Isovue 300. FINDINGS: Lung bases are clear of consolidation. There is no pleural effusion. There is minimal fibrotic change at the right posterior lung base. Heart size is normal. There is no pericardial effusion. Stomach ap pears normal. Liver spleen pancreas gallbladder appear normal. Bile ducts are not dilated. There is no adrenal mass. Kidneys show satisfactory contrast opacification. There is no hydronephrosi s. There is 2 cm cortical cyst lateral right kidney. There is no retroperitoneal adenopathy. Ureters are not dilated. Bladder distends smoothly. There is no free fluid in the pelvis. There is di ffuse wall thickening of the entire colon. There is mild fat stranding around the descending colon. T here is no small bowel mesenteric edema. Small bowel is fairly normal in appearance. There is no evid ence of a bowel obstruction. There is no inguinal hernia. There is no free air. There is no ascites. Bony structures appear intact. IMPRESSION: THERE IS DIFFUSE WALL THICKENING OF THE COLON CONSISTENT WITH ULCERATIVE COLITIS. THIS APPEARS WORSE THAN LAST EXAM WITH INVOLVEMENT OF THE RIGHT COLON AND HEPATIC FLEXURE THAT WAS NORMAL IN APPEARANCE ON THE OLD EXAM. Wall thickening appears slightly worse in the left colon Compared to old exam.
[2018-08-16] MEDS ORDERED: MORPHINE SULFATE 4 MG/ML SYRINGE IV STA (22:19)
[2018-08-16] MEDS ORDERED: methylPREDNISolone SOD SUCCI 125 MG/2 ML VIAL IV STA (22:19)
[2018-08-16 22:38] LABS: Appearance,Urine Clear (Clear); Bilirubin,Urine Negative (Negative); Blood,Urine Negative (Negative); Color,Urine Yellow; Glucose,Urine (UA) Negative (Negative); Ketones,Urine Negative (Negative); Leukocyte Esterase,Urine Negative (Negative); Nitrite,Urine Negative (Negative); Protein,Urine Negative (Negative); Specific Gravity,Urine 1.016 (1.001-1.035); Urobilinogen,Urine <2.0 mg/dL (<2.0)
--- NOTE | 2018-08-16 22:38 | ED ---
General Adult HPI - General Chief complaint: Abdominal Pain Stated complaint: colitis flare up Time Seen by Provider: 08/16/18 19:53 Source: patient, RN notes reviewed, old records reviewed Mode of arrival: ambulatory Limitations: no limitations - History of Present Illness Initial comments: 38-year-old male patient past medical history of ulcerative colitis presents to ED with abdominal pain and bloody diarrhea. Patient states that he has not been taking any chronic steroids for his ulcerative colitis. Patient states this pain does feel similar to the pain is worse in the past. The pain is located mostly periumbilically. Patient denies any other complaints. Patient denies any chest pain or shortness of breath. Systemic: Pt denies fatigue, myalgia, fever/chills, rash. Pt denies weakness, night sweats, weight loss. Neuro: Pt denies headache, visual disturbances, syncope or pre-syncope. HEENT: Pt denies ocular discharge or irritation, otalgia, rhinorrhea, pharyngitis or notable lymphadenopathy. Cardiopulmonary: Pt denies chest pain, SOB, heart palpitations, dyspnea on exertion. Abdominal/GI: Pt denies abdominal pain, n/v/d. : Pt denies dysuria, burning w/ urination, frequency/urgency. Denies new onset urinary or bowel incontinence. MSK: Pt denies myalgia, loss of strength or function in extremities. Neuro: Pt denies new onset weakness, paresthesias. - Related Data Home Medications Medication Instructions Recorded Confirmed Omeprazole [PriLOSEC] 20 mg PO DAILY PRN 06/07/14 08/16/18 Albuterol Nebulized [Ventolin 2.5 mg INHALATION Q6H PRN 06/10/18 08/16/18 Nebulized] Albuterol Sulfate [Proair Hfa] 2 puff INHALATION RT-Q6H PRN 06/10/18 08/16/18 Fluticasone/Vilanterol [Breo 1 puff INHALATION DAILY PRN 06/10/18 08/16/18 Ellipta 200-25 Mcg INH] Ipratropium Nebulized [Atrovent 0.5 mg INHALATION Q6HR PRN 06/10/18 08/16/18 Nebulized 0.2 MG/ML] Magnesium 200 mg PO DAILY 06/10/18 08/16/18 Milk Thistle 150 mg PO DAILY 06/10/18 08/16/18 Multivitamins, Thera [Multivitamin 1 tab PO DAILY 06/10/18 08/16/18 (formulary)] [place]-3 Fatty Acids [[place]-3] 1,000 mg PO DAILY 08/16/18 08/16/18 Previous Rx's Medication Instructions Recorded Dicyclomine [Bentyl] 20 mg PO QID PRN #60 tab 06/12/18 Allergies Allergy/AdvReac Type Severity Reaction Status Date / Time varenicline [From Chantix] AdvReac suicidal Verified 08/16/18 20:13 thoughts Review of Systems ROS Statement: Those systems with pertinent positive or pertinent negative responses have been documented in the HPI. ROS Other: All systems not noted in ROS Statement are negative. Past Medical History Past Medical History: Asthma, Cancer, COPD, Hypertension Additional Past Medical History / Comment(s): ulcerative colitis,bleeding stools,SHINGLES (NO OPEN LESIONS),skin CA removed from face History of Any Multi-Drug Resistant Organisms: None Reported Past Surgical History: Heart Catheterization, Orthopedic Surgery, Tonsillectomy Additional Past Surgical History / Comment(s): rt knee x3,heel spurs jaime feet x2,ORIF rt elbow-later surg uable to remove screw,lt shoulder,hernia x3-later 14 surgeries to remove mesh,jaime eye lid surgery, Past Anesthesia/Blood Transfusion Reactions: No Reported Reaction, Family History of Problems w/ Anesthesia Additional Past Anesthesia/Blood Transfusion Reaction / Comment(s): dad and brother had problems coming out of anesthesia Past Psychological History: Anxiety Smoking Status: Current every day smoker Past Alcohol Use History: None Reported Past Drug Use History: None Reported - Past Family History Sister(s) Family Medical History: Cancer Additional Family Medical History / Comment(s): #1 sister pasted away with lung CA,#2 sister breast CA General Exam - General Exam Comments Initial Comments: Constitutional: NAD, AOX3, Pt has pleasant affect. HEENT: NC/AT, trachea midline, neck supple, no lymphadenopathy. Posterior pharynx non erythematous, without exudates. External ears appear normal, without discharge. Mucous membranes moist. Eyes PERRLA, EOM intact. There is no scleral icterus. No pallor noted. Cardiopulmonary: RRR, no murmurs, rubs or gallops, no JVD noted. Lungs CTAB in anterior and posterior harrison. No peripheral edema. Abdominal exam: Abdomen soft and non-distended. Abdomen mildly tender to palpation and periumbilical region. No ecchymoses, no guarding or rigidity. Bowel sounds active in LLQ. No hepatosplenomegaly. No ecchymosis Neuro: CN II-XII grossly intact. No nuchal rigidity. MSK: No posterior calf tenderness bilaterally, homans sign negative bilaterally. Posterior tibialis and radial pulse +2 bilaterally. Sensation intact in upper and lower extremities. Full active ROM in upper and lower extremities, 5/5 st regnth. Limitations: no limitations Course Vital Signs 08/16/18 19:22 Temperature 98.3 F Pulse Rate 88 Respiratory 16 Rate Blood Pressure 126/75 O2 Sat by Pulse 99 Oximetry Medical Decision Making - Medical Decision Making 58-year-old male patient past medical history of ulcerative colitis presents to ED with abdominal pain and bloody diarrhea. Patient states that he has not been taking any chronic steroids for his ulcerative colitis. Patient states this pain does feel similar to the pain is worse in the past. The pain is located mostly periumbilically. Patient denies any other complaints. Patient denies any chest pain or shortness of breath. Patient vital signs stable, afebrile. Physical exam displayed: Abdomen soft and non-distended. Abdomen mildly tender to palpation and periumbilical region. No ecchymoses, no guarding or rigidity. Laboratory investigations revealed nonspecific CBC, CMP, coagulation studies. Lipase is within normal limits, lactic acid within normal limits. CT abdomen and pelvis with contrast displayed diffuse wall thickening of the colon consistent with ulcerative colitis. This does appear to be worse than prior exam. Patient administered 1 dose of steroids in ED. Patient will be discharged, patient will follow-up with merit system director tomorrow. Patient return to ER condition worsens in any way. Case discussed with Dr. Yusuf. Patient not driving home. - Lab Data Result diagrams: 08/16/18 21:01 08/16/18 21: Lab Results 08/16/18 08/16/18 08/16/18 Range/Units 21: 21: 21: WBC 9.0 (3.8-10.6) k/uL RBC 4.03 L (4.30-5.90) m/uL Hgb 12.3 L (13.0-17.5) gm/dL Hct 36.3 L (39.0-53.0) % MCV 90.2 (80.0-100.0) fL MCH 30.6 (25.0-35.0) pg MCHC 34.0 (31.0-37.0) g/dL RDW 13.7 (11.5-15.5) % Plt Count 398 (150-450) k/uL Neutrophils % 72 % Lymphocytes % 17 % Monocytes % 5 % Eosinophils % 4 % Basophils % 0 % Neutrophils # 6.5 (1.3-7.7) k/uL Lymphocytes # 1.5 (1.0-4.8) k/uL Monocytes # 0.4 (0-1.0) k/uL Eosinophils # 0.4 (0-0.7) k/uL Basophils # 0.0 (0-0.2) k/uL PT (9.0-12.0) sec INR (<1.2) APTT (22.0-30.0) sec Sodium 134 L (137-145) mmol/L Potassium 3.7 (3.5-5.1) mmol/L Chloride 104 (98-107) mmol/L Carbon Dioxide 28 (22-30) mmol/L Anion Gap 2 mmol/L BUN 7 L (9-20) mg/dL Creatinine 0.65 L (0.66-1.25) mg/dL Est GFR (CKD-EPI)AfAm >90 (>60 ml/min/1.73 sqM) Est GFR (CKD-EPI)NonAf >90 (>60 ml/min/1.73 sqM) Glucose 90 (74-99) mg/dL Plasma Lactic Acid Arya 0.9 (0.7-2.0) mmol/L Calcium 8.0 L (8.4-10.2) mg/dL Total Bilirubin 0.2 (0.2-1.3) mg/dL AST 18 (17-59) U/L ALT 24 (21-72) U/L Alkaline Phosphatase 80 (38-126) U/L Total Protein 5.2 L (6.3-8.2) g/dL Albumin 2.5 L (3.5-5.0) g/dL Lipase 61 (23-300) U/L 08/16/18 Range/Units 21:01 WBC (3.8-10.6) k/uL RBC (4.30-5.90) m/uL Hgb (13.0-17.5) gm/dL Hct (39.0-53.0) % MCV (80.0-100.0) fL MCH (25.0-35.0) pg MCHC (31.0-37.0) g/dL RDW (11.5-15.5) % Plt Count (150-450) k/uL Neutrophils % % Lymphocytes % % Monocytes % % Eosinophils % % Basophils % % Neutrophils # (1.3-7.7) k/uL Lymphocytes # (1.0-4.8) k/uL Monocytes # (0-1.0) k/uL Eosinophils # (0-0.7) k/uL Basophils # (0-0.2) k/uL PT 10.5 (9.0-12.0) sec INR 1.0 (<1.2) APTT 30.6 H (22.0-30.0) sec Sodium (137-145) mmol/L Potassium (3.5-5.1) mmol/L Chloride (98-107) mmol/L Carbon Dioxide (22-30) mmol/L Anion Gap mmol/L BUN (9-20) mg/dL Creatinine (0.66-1.25) mg/dL Est GFR (CKD-EPI)AfAm (>60 ml/min/1.73 sqM) Est GFR (CKD-EPI)NonAf (>60 ml/min/1.73 sqM) Glucose (74-99) mg/dL Plasma Lactic Acid Arya (0.7-2.0) mmol/L Calcium (8.4-10.2) mg/dL Total Bilirubin (0.2-1.3) mg/dL AST (17-59) U/L ALT (21-72) U/L Alkaline Phosphatase (38-126) U/L Total Protein (6.3-8.2) g/dL Albumin (3.5-5.0) g/dL Lipase (23-300) U/L Disposition Clinical Impression: Abdominal pain, Ulcerative colitis Disposition: HOME SELF-CARE Condition: Stable Instructions (If sedation given, give patient instructions): Abdominal Pain (ED) Additional Instructions: Patient to adhere to previously discussed treatment plan and will take medication(s) as directed. Patient to follow up with PCP in 1-2 days. Patient to return to ED if symptoms do not improve. Follow-up with specialist tomorrow. Return to ER if condition worsens. Is patient prescribed a controlled substance at d/c from ED?: No Referrals: Gerald Fernandez DO [Primary Care Provider] - 1-2 days Griffin Estevez MD [STAFF PHYSICIAN] - 1-2 days
[2018-08-16 23:02] VITALS: BP 113/64; PULSE 90; RESP 19
== END 2018-08-16 23:10 | disposition home or self-care (01) ==
LOC: EC 19:20
DX: K51.90 Ulcerative colitis, unspecified, without complications (principal); J44.9 Chronic obstructive pulmonary disease, unspecified; F17.200 Nicotine dependence, unspecified, uncomplicated; Z88.8 Allergy status to other drugs, medicaments and biological substances; Z95.5 Presence of coronary angioplasty implant and graft; Z85.828 Personal history of other malignant neoplasm of skin
CPT/HCPCS: 99284; 96374; 96375; 96361 ×2; 36415; 80053; 83605; 83690; 85025; 85610; 85730; 81003; 74177; J2270; J2930; Q9967

== ENCOUNTER → 2018-08-23 | Outpatient (CLI) | payer MEDICARE ==
[2018-08-23 10:35] LABS: HCT 39.9 % (39.0-53.0); HGB 12.4 gm/dL (13.0-17.5); MCH 29.1 pg (25.0-35.0); MCHC 31.1 g/dL (31.0-37.0); MCV 93.5 fL (80.0-100.0); Mean Platelet Volume 6.3; Platelet Count 362 k/uL (150-450); RBC 4.27 m/uL (4.30-5.90); RDW 14.2 % (11.5-15.5); WBC 8.8 k/uL (3.8-10.6)
[2018-08-23 12:02] LABS: Erythrocyte Sedimentation Rate 46 mm/hr (0-15)
[2018-08-23 16:24] LABS: Albumin 3.2 g/dL (3.80-4.90); Albumin/Globulin Ratio 1.52 (1.60-3.17); Anion Gap 5.4 mmol/L (4.00-12.00); C Reactive Protein 0.7 mg/dL (0.0-0.8); Calcium 8.3 mg/dL (8.7-10.3); Carbon Dioxide 26.6 mmol/L (21.6-31.8); Globulin 2.1 g/dL (1.6-3.3); Potassium 3.8 mmol/L (3.5-5.5); Total Bilirubin 0.1 mg/dL (0.3-1.2); Total Protein 5.3 g/dL (6.2-8.2)
== END | disposition home or self-care (01) ==
LOC: LABWHC1 09:54
PROVIDERS: ATTEND Internal Medicine
DX: K51.50 Left sided colitis without complications (principal)
CPT/HCPCS: 36415; 80053; 85027; 85652; 86140

== ENCOUNTER → 2018-12-08 | Outpatient (CLI) | payer MEDICARE ==
--- NOTE | 2018-12-08 08:46 | CTL ---
EXAMINATION TYPE: CT Low Dose Lung DATE OF EXAM ORDERED: 12/08/2018 HISTORY: 58-year-old male Personal history of tobacco use. Lung cancer screening CT DLP: 120.[address] CTDI: 3.1 mGy Automated exposure control for dose reduction was used. SCREENING VISIT: Baseline COMPARISON: 06/08/2017. TECHNIQUE: Low dose computed tomography scan was performed through the chest at 1 mm thick sections a nd reconstructed images in the coronal/sagittal plane at [address] DIAGNOSTIC QUALITY: Satisfactory FINDINGS: Heart normal size without pericardial effusion. Mild coronary vessel calcifications are present. Borderline ectasia ascending aorta 3.6 cm. Conventional arch vessel branching anatomy. A few prominent but nonenlarged mediastinal lymph nodes are present measuring up to 8 mm precarinal r egion Mild diffuse bronchial wall thickening. Moderate paraseptal and mild centrilobular emphysema. 3 mm pulmonary nodule left mid to lower lung along the major fissure, probable pulmonary lymph node. No suspicious pulmonary nodule or mass. No consolidation or pleural effusion. Visualized upper abdomen shows partially exophytic 3.3 cm cyst lateral upper pole right kidney and pr ominent fluid and ingested debris distention of the stomach. Bones: Mild degenerative disc disease within the thoracic spine. IMPRESSION: 1. Lung RADS 2 - benign; single 3 mm left-sided pulmonary nodule. 2. COPD with moderate emphysema. RECOMMENDATION: 1. Continue annual low-dose lung cancer screening CT. 2. Smoking cessation. FOLLOW UP CT CHEST RECOMMENDATION: [address] LUNG RAD: Lung-Rad 2 Benign Appearance or Behavior
== END | disposition home or self-care (01) ==
LOC: RADCTMAIN 07:45
PROVIDERS: ATTEND Family Medicine
DX: Z12.2 Encounter for screening for malignant neoplasm of respiratory organs (principal); F17.210 Nicotine dependence, cigarettes, uncomplicated

== ENCOUNTER 2019-06-11 11:04 | Emergency (ER) | payer MEDICARE, OTHER ==
[2019-06-11 11:16] VITALS: TEMP 97.4
[2019-06-11] MEDS ORDERED: ASPIRIN 81 MG PO STA (11:49)
[2019-06-11] MEDS ORDERED: RX INFO: IV CONTRAST WAS GIVEN 1 EACH MISC MISCELLANE PRN (11:49)
--- NOTE | 2019-06-11 11:53 | ED ---
General Adult HPI - General Chief complaint: Dizziness Stated complaint: dizzy Source: patient Mode of arrival: wheelchair Limitations: no limitations - History of Present Illness Initial comments: The patient is a 58-year-old male past history of COPD, ulcerative colitis who presents emergency room with reported chest pain and headaches. CT has been following with his primary care physician this past week because of a COPD exacerbation. He has been on steroids and breathing treatments. Each time he followed up in office he was told his blood pressure was high. His primary care physician did recommend initiating vacations however he refused stating he wanted to control diet. States he just in his diet however last he went in blood pressure was still high. He has now become symptomatic. He states that he is having constant headaches with blurred vision. Also reports feeling lightheaded. Also reports to left-sided chest discomfort with shortness of breath. He is a numbness and tingling sensation in his left upper extremity. Denies ripping or tearing sensation to his back however the pain does radiate to his back. He denies a cough or hemoptysis. No history of DVT or PE. No pedal edema, calf pain or swelling. Denies any nausea or vomiting. No diaphoresis. Admits to exertional chest pain. His has been taking his blood pressure at home and has been running in the 150s and 160s systolic. He has had a cardiac cath however this was approximately 8-10 years ago. No history of cardiac disease. Patient does smoke 2 packs a day. Reports a significant family history of cardiac disease. Denies any additional symptoms including no numbness or weakness. No, pain or change in bowel or bladder habits. There are no alleviating, Perceptin or modifying factors - Related Data Home Medications Medication Instructions Recorded Confirmed Albuterol Nebulized [Ventolin 2.5 mg INHALATION RT-Q6H PRN 06/10/18 06/11/19 Nebulized] Albuterol Sulfate [Proair Hfa] 2 puff INHALATION RT-Q6H PRN 06/10/18 06/11/19 Ipratropium Nebulized [Atrovent 0.5 mg INHALATION RT-Q6H PRN 06/10/18 06/11/19 Nebulized 0.2 MG/ML] L.acidoph,Paracasei, B.lactis 1 cap PO DAILY 06/11/19 06/11/19 [Probiotic] Promethaz-Cod 6.25-10 mg/5 ml 10 ml PO Q4HR PRN 06/11/19 06/11/19 [Phenergan with Codeine] Tiotropium [place] [Spiriva 1 spray INHALATION RT-DAILY PRN 06/11/19 06/11/19 Respimat] Turmeric Root Extract [Turmeric] 500 mg PO DAILY 06/11/19 06/11/19 Previous Rx's Medication Instructions Recorded Dicyclomine [Bentyl] 20 mg PO QID PRN #60 tab 06/12/18 Allergies Allergy/AdvReac Type Severity Reaction Status Date / Time varenicline [From Chantix] AdvReac suicidal Verified 06/11/19 12:33 thoughts Review of Systems ROS Statement: Those systems with pertinent positive or pertinent negative responses have been documented in the HPI. ROS Other: All systems not noted in ROS Statement are negative. Past Medical History Past Medical History: Asthma, Cancer, COPD, Hypertension Additional Past Medical History / Comment(s): ulcerative colitis,bleeding stools,SHINGLES (NO OPEN LESIONS),skin CA removed from face History of Any Multi-Drug Resistant Organisms: None Reported Past Surgical History: Heart Catheterization, Orthopedic Surgery, Tonsillectomy Additional Past Surgical History / Comment(s): rt knee x3,heel spurs jaime feet x2,ORIF rt elbow-later surg uable to remove screw,lt shoulder,hernia x3-later 14 surgeries to remove mesh,jaime eye lid surgery, Past Anesthesia/Blood Transfusion Reactions: No Reported Reaction, Family History of Problems w/ Anesthesia Additional Past Anesthesia/Blood Transfusion Reaction / Comment(s): dad and brother had problems coming out of anesthesia Past Psychological History: Anxiety Smoking Status: Current every day smoker Past Alcohol Use History: None Reported Past Drug Use History: Marijuana - Past Family History Sister(s) Family Medical History: Cancer Additional Family Medical History / Comment(s): #1 sister pasted away with lung CA,#2 sister breast CA General Exam Limitations: no limitations Course Vital Signs 06/11/19 06/11/19 06/11/19 11:14 11:30 12:00 Temperature 97.4 F L Pulse Rate 102 H 100 106 H Respiratory 16 16 16 Rate Blood Pressure 199/103 180/104 174/92 O2 Sat by Pulse 100 98 98 Oximetry 06/11/19 06/11/19 06/11/19 12:30 13:47 15:00 Temperature Pulse Rate 92 87 75 Respiratory 18 20 16 Rate Blood Pressure 169/100 115/78 126/80 O2 Sat by Pulse 97 98 96 Oximetry 06/11/19 15:30 Temperature Pulse Rate 80 Respiratory 18 Rate Blood Pressure 130/84 O2 Sat by Pulse 96 Oximetry EKG Findings - EKG Comments: EKG Findings:: EKG demonstrates normal sinus rhythm with a ventricular rate of 94. AR interval 160. QRS 90. QTC of 425. No acute ST segment elevation or depressions concern for ischemic changes Medical Decision Making - Medical Decision Making Upon arrival the patient was placed into room 8. A thorough history and physical exam was performed. I did recommend laboratory studies, a CT of the patient's brain because of his reported headache and hypertension as well as a CT of his chest because of his reported chest pain radiating straight through to his back. I did give the patient a 324 mg chewable aspirin. The patient has a history of claustrophobia and does request Ativan prior to CT. Laboratory studies demonstrate a negative troponin. CT of the patient's brain demonstrates no acute intracranial abnormality. CT of the chest demonstrates bullous emphysema 2.9 right renal cyst. Mild degenerative changes of the spine. I reevaluated the patient. His blood pressures markedly improved at this time. He states his chest pain is gone. It recommend hospital admission because his concerning history with multiple risk factors. He doesn't heart score of 4. The patient refused and requested to go home. He is made aware of the risks of leaving to include permanent disability and even . The patient understands this. He is willing to stay for a second troponin which is obtained and remains negative. At this time the patient will be discharged home. He is to follow up with his primary care physician have a stress test and echo performed. Return to the emergency room for any new or worsening symptoms or decreased hospital admission. Patient agreed to this and was discharged with stable condition - Lab Data Result diagrams: 06/11/19 11:30 06/11/19 11:30 Lab Results 06/11/19 06/11/19 06/11/19 Range/Units 11:30 11:30 11:30 WBC 9.3 (3.8-10.6) k/uL RBC 5.61 (4.30-5.90) m/uL Hgb 14.9 (13.0-17.5) gm/dL Hct 45.7 (39.0-53.0) % MCV 81.5 (80.0-100.0) fL MCH 26.5 (25.0-35.0) pg MCHC 32.5 (31.0-37.0) g/dL RDW 15.4 (11.5-15.5) % Plt Count 236 (150-450) k/uL Neutrophils % 74 % Lymphocytes % 16 % Monocytes % 6 % Eosinophils % 2 % Basophils % 0 % Neutrophils # 6.9 (1.3-7.7) k/uL Lymphocytes # 1.4 (1.0-4.8) k/uL Monocytes # 0.5 (0-1.0) k/uL Eosinophils # 0.2 (0-0.7) k/uL Basophils # 0.0 (0-0.2) k/uL PT 9.5 (9.0-12.0) sec INR 0.9 (<1.2) APTT 26.4 (22.0-30.0) sec Sodium 135 L (137-145) mmol/L Potassium 4.6 (3.5-5.1) mmol/L Chloride 103 (98-107) mmol/L Carbon Dioxide 24 (22-30) mmol/L Anion Gap 8 mmol/L BUN 15 (9-20) mg/dL Creatinine 0.73 (0.66-1.25) mg/dL Est GFR (CKD-EPI)AfAm >90 (>60 ml/min/1.73 sqM) Est GFR (CKD-EPI)NonAf >90 (>60 ml/min/1.73 sqM) Glucose 114 H (74-99) mg/dL Calcium 9.3 (8.4-10.2) mg/dL Magnesium 2.1 (1.6-2.3) mg/dL Total Bilirubin 0.3 (0.2-1.3) mg/dL AST 30 (17-59) U/L ALT 25 (4-49) U/L Alkaline Phosphatase 101 (38-126) U/L Troponin I (0.000-0.034) ng/mL Total Protein 7.2 (6.3-8.2) g/dL Albumin 4.5 (3.5-5.0) g/dL 06/11/19 06/11/19 Range/Units 11:30 14:09 WBC (3.8-10.6) k/uL RBC (4.30-5.90) m/uL Hgb (13.0-17.5) gm/dL Hct (39.0-53.0) % MCV (80.0-100.0) fL MCH (25.0-35.0) pg MCHC (31.0-37.0) g/dL RDW (11.5-15.5) % Plt Count (150-450) k/uL Neutrophils % % Lymphocytes % % Monocytes % % Eosinophils % % Basophils % % Neutrophils # (1.3-7.7) k/uL Lymphocytes # (1.0-4.8) k/uL Monocytes # (0-1.0) k/uL Eosinophils # (0-0.7) k/uL Basophils # (0-0.2) k/uL PT (9.0-12.0) sec INR (<1.2) APTT (22.0-30.0) sec Sodium (137-145) mmol/L Potassium (3.5-5.1) mmol/L Chloride (98-107) mmol/L Carbon Dioxide (22-30) mmol/L Anion Gap mmol/L BUN (9-20) mg/dL Creatinine (0.66-1.25) mg/dL Est GFR (CKD-EPI)AfAm (>60 ml/min/1.73 sqM) Est GFR (CKD-EPI)NonAf (>60 ml/min/1.73 sqM) Glucose (74-99) mg/dL Calcium (8.4-10.2) mg/dL Magnesium (1.6-2.3) mg/dL Total Bilirubin (0.2-1.3) mg/dL AST (17-59) U/L ALT (4-49) U/L Alkaline Phosphatase (38-126) U/L Troponin I <0.012 <0.012 (0.000-0.034) ng/mL Total Protein (6.3-8.2) g/dL Albumin (3.5-5.0) g/dL Disposition Clinical Impression: Chest pain Disposition: HOME SELF-CARE Condition: Stable Instructions (If sedation given, give patient instructions): Chest Pain (ED) Additional Instructions: Please follow up with the primary care doctor. I did recommend stress testing and an echo your heart. Return to the emergency room if you agree to hospital admission. Is patient prescribed a controlled substance at d/c from ED?: No Referrals: Lin Cadena DO [Primary Care Provider] - 1-2 days Time of Disposition: 15:39
[2019-06-11] MEDS ORDERED: LORazepam 2 MG/ML INJ IV STA (12:01)
[2019-06-11 12:04] LABS: Basophils % (A) 0 %; Eosinophils # (A) 0.2 k/uL (0-0.7); Eosinophils % (A) 2 %; HCT 45.7 % (39.0-53.0); HGB 14.9 gm/dL (13.0-17.5); Lymphocytes # (A) 1.4 k/uL (1.0-4.8); Lymphocytes % (A) 16 %; MCH 26.5 pg (25.0-35.0); MCHC 32.5 g/dL (31.0-37.0); MCV 81.5 fL (80.0-100.0); Monocytes # (A) 0.5 k/uL (0-1.0); Monocytes % (A) 6 %; Neutrophils # (A) 6.9 k/uL (1.3-7.7); Neutrophils % (A) 74 %; Platelet Count 236 k/uL (150-450); RBC 5.61 m/uL (4.30-5.90); RDW 15.4 % (11.5-15.5); WBC 9.3 k/uL (3.8-10.6)
[2019-06-11 12:15] LABS: INR 0.9 (<1.2); Partial Thromboplastin Time 26.4 sec (22.0-30.0); Prothrombin Time 9.5 sec (9.0-12.0)
[2019-06-11 12:17] LABS: ALT 25 U/L (4-49); AST 30 U/L (17-59); African American GFR (CKD) >90 (>60 ml/min/1.73 sqM); Albumin 4.5 g/dL (3.5-5.0); Alkaline Phosphatase 101 U/L (38-126); Anion Gap 8 mmol/L; Blood Urea Nitrogen 15 mg/dL (9-20); Calcium 9.3 mg/dL (8.4-10.2); Carbon Dioxide 24 mmol/L (22-30); Chloride 103 mmol/L (98-107); Glucose 114 mg/dL (74-99); Magnesium 2.1 mg/dL (1.6-2.3); Non-African American GFR(CKD) >90 (>60 ml/min/1.73 sqM); Potassium 4.6 mmol/L (3.5-5.1); Sodium 135 mmol/L (137-145); Total Bilirubin 0.3 mg/dL (0.2-1.3); Total Protein 7.2 g/dL (6.3-8.2)
--- NOTE | 2019-06-11 13:31 | CT ---
EXAMINATION TYPE: CT chest w con DATE OF EXAM: 06/11/2019 COMPARISON: Previous CTA of the aorta dated 06/08/2017 HISTORY: Chest heaviness with dizziness. CT DLP: 574 mGycm Automated exposure control for dose reduction was used. CONTRAST: CT scan of the chest is performed with IV Contrast, patient injected with 100 mL of Isovue 300. FINDINGS: There are bullous changes in the upper lobes. This is emphysematous change throughout the l ungs. There is atelectatic change at the lung bases bilaterally. No definite parenchymal nodules are seen. There is no significant axillary, mediastinal or hilar adenopathy. There is no pleural or pericardial fluid. The heart is not enlarged. The aorta is normal in caliber without evidence of dissection. Visualized portions of the upper abdomen are unremarkable. There is a simple appearing 2.9 cm cyst ar ising from the upper pole of the right kidney. There is minimal hypertrophic spondylosis within the spine. IMPRESSION: 1. EVIDENCE OF BULLOUS EMPHYSEMA. 2. SIMPLE APPEARING, 2.9 RIGHT RENAL CYST. 3. MILD DEGENERATIVE CHANGE WITHIN THE SPINE.
--- NOTE | 2019-06-11 13:32 | CT ---
EXAMINATION TYPE: CT brain wo con DATE OF EXAM: 06/11/2019 COMPARISON: NONE HISTORY: Chest heaviness with dizziness CT DLP: 1125.4 mGycm Automated exposure control for dose reduction was used. FINDINGS: Central structures are midline. There is no evidence of hydrocephalus. No acute focal lesion, mass ef fect or midline shift is seen. I do not see evidence of intracranial blood. Visualized portions of the paranasal sinuses and mastoids are clear. The bony calvarium is intact. IMPRESSION: NO ACUTE INTRACRANIAL ABNORMALITY.
[2019-06-11 15:42] VITALS: BP 130/84; PULSE 80; RESP 18
== END 2019-06-11 15:48 | disposition home or self-care (01) ==
LOC: EC 11:04
DX: R07.9 Chest pain, unspecified (principal); R42 Dizziness and giddiness; R51 Headache; N28.1 Cyst of kidney, acquired; J43.9 Emphysema, unspecified; F40.240 Claustrophobia; I10 Essential (primary) hypertension; F17.200 Nicotine dependence, unspecified, uncomplicated; Z85.828 Personal history of other malignant neoplasm of skin; Z88.8 Allergy status to other drugs, medicaments and biological substances
CPT/HCPCS: 36415; 93005; 80053; 83735; 84484; 85025; 85610; 85730; 70450; 71260; 99284; 96374; J2060; Q9967

== ENCOUNTER 2019-06-13 08:53 | Observation (INO) | payer MEDICARE, OTHER ==
[2019-06-13 09:18] LABS: Glucose,Whole Blood 108 mg/dL (75-99)
[2019-06-13] MEDS ORDERED: NITROGLYCERIN OINT 1 INCH/GM PACKET TOPICAL STA (09:28)
[2019-06-13] MEDS ORDERED: ASPIRIN 81 MG PO STA (09:28)
--- NOTE | 2019-06-13 09:33 | ED ---
General Adult HPI - General Chief complaint: Neuro Symptoms/Deficit Stated complaint: left arm numbness Time Seen by Provider: 06/13/19 09:00 Source: patient, RN notes reviewed, old records reviewed Mode of arrival: wheelchair Limitations: no limitations - History of Present Illness Initial comments: This a 58-year-old male who presents emergency Department complaining of waking up this morning and having tingling in bilateral hands. Patient states he went to work on his computer and then he started having tingling in the left hand and up the arm and the arm felt slightly heavy and then he started having some heaviness in his chest and his neck. Patient states he never lost the sensation he was able to feel everything but he just had a weird tingling sensation almost reminiscent of his arm going to sleep. Patient states he's had multiple neck problems and he initially thought it was due to that but with the chest pain and recently having some high blood pressure he decided come the emergency department. Patient states symptoms are much improved at this point he has no sensation in his face or neck but he is still having some chest heaviness and some arm heaviness patient states she's also somewhat short of breath he did not take his breathing treatments today. Patient also is a smoker. - Related Data Home Medications Medication Instructions Recorded Confirmed Albuterol Nebulized [Ventolin 2.5 mg INHALATION RT-Q6H PRN 06/10/18 06/13/19 Nebulized] Albuterol Sulfate [Proair Hfa] 2 puff INHALATION RT-Q6H PRN 06/10/18 06/13/19 Ipratropium Nebulized [Atrovent 0.5 mg INHALATION RT-Q6H PRN 06/10/18 06/13/19 Nebulized 0.2 MG/ML] L.acidoph,Paracasei, B.lactis 1 cap PO DAILY 06/11/19 06/13/19 [Probiotic] Tiotropium [place] [Spiriva 1 spray INHALATION RT-DAILY PRN 06/11/19 06/13/19 Respimat] Turmeric Root Extract [Turmeric] 500 mg PO DAILY 06/11/19 06/13/19 Fluticasone/Umeclidin/Vilanter 1 puff INHALATION RT-DAILY PRN 06/13/19 06/13/19 [Trelegy Ellipta 100-62.5-25] Promethazine 6.25MG/5Ml [Phenergan 10 ml PO Q4H PRN 06/13/19 06/13/19 Syrup] Previous Rx's Medication Instructions Recorded Dicyclomine [Bentyl] 20 mg PO QID PRN #60 tab 06/12/18 Allergies Allergy/AdvReac Type Severity Reaction Status Date / Time varenicline [From Chantix] AdvReac suicidal Verified 06/13/19 12:31 thoughts Review of Systems ROS Statement: Those systems with pertinent positive or pertinent negative responses have been documented in the HPI. ROS Other: All systems not noted in ROS Statement are negative. Past Medical History Past Medical History: Asthma, Cancer, COPD, Hypertension Additional Past Medical History / Comment(s): ulcerative colitis,bleeding stools,SHINGLES (NO OPEN LESIONS),skin CA removed from face chronic back pain herniated disks ddd hemachromatosis History of Any Multi-Drug Resistant Organisms: None Reported Past Surgical History: Heart Catheterization, Orthopedic Surgery, Tonsillectomy Additional Past Surgical History / Comment(s): rt knee x3,heel spurs jaime feet x2,ORIF rt elbow-later surg uable to remove screw,lt shoulder,hernia x3-later 14 surgeries to remove mesh,jaime eye lid surgery, Past Anesthesia/Blood Transfusion Reactions: No Reported Reaction, Family History of Problems w/ Anesthesia Additional Past Anesthesia/Blood Transfusion Reaction / Comment(s): dad and brother had problems coming out of anesthesia Past Psychological History: Anxiety Smoking Status: Current every day smoker Past Alcohol Use History: None Reported Past Drug Use History: Marijuana - Past Family History Sister(s) Family Medical History: Cancer Additional Family Medical History / Comment(s): #1 sister pasted away with lung CA,#2 sister breast CA General Exam - General Exam Comments Initial Comments: GENERAL: Patient is well-developed and well-nourished. Patient is nontoxic and well- hydrated and is in mild distress. ENT: Neck is soft and supple. No significant lymphadenopathy is noted. Oropharynx is clear. Moist mucous membranes. Neck has full range of motion without eliciting any pain. EYES: The sclera were anicteric and conjunctiva were pink and moist. Extraocular movements were intact and pupils were equal round and reactive to light. Eyelid s were unremarkable. PULMONARY: Unlabored respirations. Good breath sounds bilaterally. No audible rales rhonchi or wheezing was noted. CARDIOVASCULAR: There is a regular rate and rhythm without any murmurs gallops or rubs. ABDOMEN: Soft and nontender with normal bowel sounds. SKIN: Skin is clear with no lesions or rashes and otherwise unremarkable. NEUROLOGIC: Patient is alert and oriented x3. Cranial nerves II through XII are grossly intact. Motor and sensory are also intact. Normal speech, volume and content. Symmetrical smile. Patient's NIH is 0 MUSCULOSKELETAL: Normal extremities with adequate strength and full range of motion. No lower extremity swelling or edema. No calf tenderness. LYMPHATICS: No significant lymphadenopathy is noted PSYCHIATRIC: Normal psychiatric evaluation. Limitations: no limitations Course Vital Signs 06/13/19 06/13/19 06/13/19 08:58 10:00 10:30 Temperature 98.2 F Pulse Rate 98 Respiratory 18 Rate Blood Pressure 165/97 157/92 155/102 O2 Sat by Pulse 99 96 95 Oximetry 06/13/19 06/13/19 11:00 11:30 Temperature Pulse Rate 92 Respiratory 19 Rate Blood Pressure 147/92 142/86 O2 Sat by Pulse 95 96 Oximetry Medical Decision Making - Medical Decision Making EKG shows normal sinus rhythm at 92 bpm [place] interval 178 QRSs 82 QT interval 342 QTC is 422. Patient's EKG shows no ST segment elevation or depression. Chest x-ray shows no acute abnormality. Patient states nitroglycerin significantly reduce the chest pain in the Tylenol took away his headache. Patient states headache began after Nitropaste was placed. I started the patient on heparin. I spoke with Dr. Conrad he agreed to admit the patient admitted the patient wrote admitting orders. I consult to cardiology. I continued heparin has been Nitropaste on the floor. - Lab Data Result diagrams: 06/13/19 09:17 06/13/19 09:17 Lab Results 06/13/19 06/13/19 06/13/19 Range/Units 09:17 09:17 09:17 WBC 7.9 (3.8-10.6) k/uL RBC 5.96 H (4.30-5.90) m/uL Hgb 15.7 (13.0-17.5) gm/dL Hct 48.8 (39.0-53.0) % MCV 81.9 (80.0-100.0) fL MCH 26.4 (25.0-35.0) pg MCHC 32.2 (31.0-37.0) g/dL RDW 15.6 H (11.5-15.5) % Plt Count 269 (150-450) k/uL Neutrophils % 72 % Lymphocytes % 18 % Monocytes % 4 % Eosinophils % 3 % Basophils % 0 % Neutrophils # 5.7 (1.3-7.7) k/uL Lymphocytes # 1.4 (1.0-4.8) k/uL Monocytes # 0.4 (0-1.0) k/uL Eosinophils # 0.2 (0-0.7) k/uL Basophils # 0.0 (0-0.2) k/uL PT 9.5 (9.0-12.0) sec INR 0.9 (<1.2) APTT 26.4 (22.0-30.0) sec Sodium (137-145) mmol/L Potassium (3.5-5.1) mmol/L Chloride (98-107) mmol/L Carbon Dioxide (22-30) mmol/L Anion Gap mmol/L BUN (9-20) mg/dL Creatinine (0.66-1.25) mg/dL Est GFR (CKD-EPI)AfAm (>60 ml/min/1.73 sqM) Est GFR (CKD-EPI)NonAf (>60 ml/min/1.73 sqM) Glucose (74-99) mg/dL POC Glucose (mg/dL) 108 H (75-99) mg/dL POC Glu [place] Ii Inspector ID Tori Smith Calcium (8.4-10.2) mg/dL Magnesium (1.6-2.3) mg/dL Total Bilirubin (0.2-1.3) mg/dL AST (17-59) U/L ALT (4-49) U/L Alkaline Phosphatase (38-126) U/L Troponin I (0.000-0.034) ng/mL Total Protein (6.3-8.2) g/dL Albumin (3.5-5.0) g/dL 06/13/19 06/13/19 Range/Units 09:17 09:17 WBC (3.8-10.6) k/uL RBC (4.30-5.90) m/uL Hgb (13.0-17.5) gm/dL Hct (39.0-53.0) % MCV (80.0-100.0) fL MCH (25.0-35.0) pg MCHC (31.0-37.0) g/dL RDW (11.5-15.5) % Plt Count (150-450) k/uL Neutrophils % % Lymphocytes % % Monocytes % % Eosinophils % % Basophils % % Neutrophils # (1.3-7.7) k/uL Lymphocytes # (1.0-4.8) k/uL Monocytes # (0-1.0) k/uL Eosinophils # (0-0.7) k/uL Basophils # (0-0.2) k/uL PT (9.0-12.0) sec INR (<1.2) APTT (22.0-30.0) sec Sodium 137 (137-145) mmol/L Potassium 4.4 (3.5-5.1) mmol/L Chloride 104 (98-107) mmol/L Carbon Dioxide 23 (22-30) mmol/L Anion Gap 10 mmol/L BUN 16 (9-20) mg/dL Creatinine 0.83 (0.66-1.25) mg/dL Est GFR (CKD-EPI)AfAm >90 (>60 ml/min/1.73 sqM) Est GFR (CKD-EPI)NonAf >90 (>60 ml/min/1.73 sqM) Glucose 103 H (74-99) mg/dL POC Glucose (mg/dL) (75-99) mg/dL POC Glu [place] Ii Inspector ID Calcium 9.9 (8.4-10.2) mg/dL Magnesium 2.1 (1.6-2.3) mg/dL Total Bilirubin 0.6 (0.2-1.3) mg/dL AST 29 (17-59) U/L ALT 26 (4-49) U/L Alkaline Phosphatase 97 (38-126) U/L Troponin I <0.012 (0.000-0.034) ng/mL Total Protein 8.1 (6.3-8.2) g/dL Albumin 4.9 (3.5-5.0) g/dL Critical Care Time Critical Care Time: Yes Total Critical Care Time: 35 Disposition Clinical Impression: Unstable angina Disposition: ADMITTED IP TO THIS [facility] Time of Disposition: 12:39
[2019-06-13 09:41] LABS: Basophils % (A) 0 %; Eosinophils # (A) 0.2 k/uL (0-0.7); Eosinophils % (A) 3 %; HCT 48.8 % (39.0-53.0); HGB 15.7 gm/dL (13.0-17.5); Lymphocytes # (A) 1.4 k/uL (1.0-4.8); Lymphocytes % (A) 18 %; MCH 26.4 pg (25.0-35.0); MCHC 32.2 g/dL (31.0-37.0); MCV 81.9 fL (80.0-100.0); Mean Platelet Volume 7.2; Monocytes # (A) 0.4 k/uL (0-1.0); Monocytes % (A) 4 %; Neutrophils # (A) 5.7 k/uL (1.3-7.7); Neutrophils % (A) 72 %; Platelet Count 269 k/uL (150-450); RBC 5.96 m/uL (4.30-5.90); RDW 15.6 % (11.5-15.5); WBC 7.9 k/uL (3.8-10.6)
--- NOTE | 2019-06-13 09:47 | XR ---
EXAMINATION TYPE: XR chest 2V DATE OF EXAM: 06/13/2019 COMPARISON: 06/08/2017 TECHNIQUE: PA and lateral views submitted. HISTORY: Chest pain FINDINGS: Patchy infiltrate right lung base. Hyperinflation suggests COPD. Arthropathy of the shoulders. Hypert rophic and degenerative change of the spine. IMPRESSION: 1. Subsegmental changes right lung base could been the basis of patchy infiltrate or atelectasis wy[place] elate clinically.
[2019-06-13 09:53] LABS: ALT 26 U/L (4-49); AST 29 U/L (17-59); African American GFR (CKD) >90 (>60 ml/min/1.73 sqM); Albumin 4.9 g/dL (3.5-5.0); Alkaline Phosphatase 97 U/L (38-126); Anion Gap 10 mmol/L; Blood Urea Nitrogen 16 mg/dL (9-20); Calcium 9.9 mg/dL (8.4-10.2); Carbon Dioxide 23 mmol/L (22-30); Chloride 104 mmol/L (98-107); Glucose 103 mg/dL (74-99); Magnesium 2.1 mg/dL (1.6-2.3); Non-African American GFR(CKD) >90 (>60 ml/min/1.73 sqM); Potassium 4.4 mmol/L (3.5-5.1); Sodium 137 mmol/L (137-145); Total Bilirubin 0.6 mg/dL (0.2-1.3); Total Protein 8.1 g/dL (6.3-8.2)
[2019-06-13 09:54] LABS: INR 0.9 (<1.2); Partial Thromboplastin Time 26.4 sec (22.0-30.0); Prothrombin Time 9.5 sec (9.0-12.0)
[2019-06-13] MEDS ORDERED: HYDROmorphone 0.5 MG/0.5 ML SYRINGE IVP STA (10:48)
[2019-06-13] MEDS ORDERED: ACETAMINOPHEN TAB 500 MG TAB PO STA (10:48)
[2019-06-13] MEDS ORDERED: HEPARIN SODIUM,PORCINE 5,000 UNIT/ML 1 ML VIAL IV ONE (12:37)
[2019-06-13] MEDS ORDERED: NITROGLYCERIN SL TABS 0.4 MG TAB SUBLINGUAL PRN (12:41)
[2019-06-13] MEDS ORDERED: HEPARIN SOD,PORK IN 0.45% NACL 25,000 UNIT in 0.45% NACL 1 250ML.BAG IV SCH (12:45)
[2019-06-13] MEDS ORDERED: DICYCLOMINE 20 MG TAB PO PRN (15:06)
[2019-06-13] MEDS ORDERED: IPRATROPIUM-ALBUTEROL 3 ML NEB INHALATION PRN (15:06)
[2019-06-13] MEDS: ACETAMINOPHEN IV (For NPO) 1,000 MG in EMPTY BAG 1 BAG IVPB PRN (15:47)
[2019-06-13] MEDS: NICOTINE 21MG/24HR PATCH TRANSDERM SCH (15:47)
[2019-06-13] MEDS: PANTOPRAZOLE 40 MG/10 ML VIAL IVP SCH (15:47)
[2019-06-13] MEDS: IPRATROPIUM-ALBUTEROL 3 ML NEB INHALATION SCH ×2 (16:02→20:37)
[2019-06-13] MEDS: IPRATROPIUM 0.5 MG/2.5 ML NEBU INHALATION SCH ×2 (16:03→20:38)
[2019-06-13] MEDS: NITROGLYCERIN OINT 1 INCH/GM PACKET TOPICAL SCH ×2 (18:55→23:13)
[2019-06-13] MEDS: SYMBICORT 80-4.5 MCG INHALER INHALATION SCH (20:37)
[2019-06-14] MEDS: ACETAMINOPHEN IV (For NPO) 1,000 MG in EMPTY BAG 1 BAG IVPB PRN (02:43)
[2019-06-14 04:04] VITALS: RESP 18
[2019-06-14] MEDS: NITROGLYCERIN OINT 1 INCH/GM PACKET TOPICAL SCH (04:55)
[2019-06-14 06:16] LABS: African American GFR (CKD) >90 (>60 ml/min/1.73 sqM); Anion Gap 5 mmol/L; Blood Urea Nitrogen 12 mg/dL (9-20); Calcium 8.9 mg/dL (8.4-10.2); Carbon Dioxide 25 mmol/L (22-30); Chloride 108 mmol/L (98-107); Cholesterol 222 mg/dL (<200); Glucose 89 mg/dL (74-99); HDL Cholesterol 38 mg/dL (40-60); LDL Cholesterol,Calculated 153 mg/dL (0-99); Non-African American GFR(CKD) >90 (>60 ml/min/1.73 sqM); Potassium 4.4 mmol/L (3.5-5.1); Sodium 138 mmol/L (137-145); Triglycerides 156 mg/dL (<150)
[2019-06-14 07:13] LABS: Basophils % (A) 0 %; Eosinophils # (A) 0.2 k/uL (0-0.7); Eosinophils % (A) 3 %; HCT 44.5 % (39.0-53.0); HGB 13.8 gm/dL (13.0-17.5); Lymphocytes # (A) 1.4 k/uL (1.0-4.8); Lymphocytes % (A) 25 %; MCH 26.1 pg (25.0-35.0); MCHC 31.1 g/dL (31.0-37.0); MCV 83.9 fL (80.0-100.0); Mean Platelet Volume 7.1; Monocytes # (A) 0.4 k/uL (0-1.0); Monocytes % (A) 7 %; Neutrophils # (A) 3.7 k/uL (1.3-7.7); Neutrophils % (A) 63 %; Platelet Count 185 k/uL (150-450); RBC 5.31 m/uL (4.30-5.90); RDW 15.7 % (11.5-15.5); WBC 5.8 k/uL (3.8-10.6)
[2019-06-14] MEDS: IPRATROPIUM 0.5 MG/2.5 ML NEBU INHALATION SCH ×3 (07:22→16:56)
[2019-06-14] MEDS: IPRATROPIUM-ALBUTEROL 3 ML NEB INHALATION SCH ×3 (07:22→16:55)
[2019-06-14] MEDS: SYMBICORT 80-4.5 MCG INHALER INHALATION SCH (07:22)
[2019-06-14] MEDS ORDERED: NON FORMULARY DRUG (L.Acidoph,Paracasei, B.Lactis [Probiotic] 1 CAP) PO SCH (09:00)
[2019-06-14] MEDS ORDERED: ASPIRIN 81 MG PO SCH (09:00)
[2019-06-14] MEDS ORDERED: ASPIRIN 325 MG TAB PO SCH (09:00)
[2019-06-14] MEDS ORDERED: DOBUTamine DRIP for NUC MED 500 MG in DEXTROSE/WATER 1 250ML.BAG IV ONE (10:00)
[2019-06-14] MEDS ORDERED: MORPHINE SULFATE 4 MG/ML SYRINGE IVP STA (10:24)
--- NOTE | 2019-06-14 10:33 | P.CRDCN ---
History of Present Illness History of present illness: HISTORY OF PRESENTING ILLNESS This is a pleasant 58-year-old male past medical history significant for COPD, chronic nicotine dependence, ulcerative colitis, chronic back and neck pain and chronic nicotine and marijuana dependence. He denies prior history of coronary artery disease and does not follow in the office with a extractions technologist. We have been asked to see in consultation for chest pain. He states he has been struggling over the previous 2 weeks with elevated blood pressure. He has been following closely with his primary care physician and was placed on oral steroid s for an exacerbation of COPD. His blood pressures have been elevated in the office as well as at home. He has been checking and they were averaging over 170s systolic. He also had been having significant headaches. He came to the emergency department Thursday evening secondary to hypertension was evaluated in the emergency room and ultimately sent home with instructions to follow-up with his primary care physician on Thursday. He woke up Thursday morning sat down at his computer to do his regularly scheduled breathing treatment and he felt he had the cold sensation in his left hand that moved up his left arm into the left neck, left jaw and left precordial region. On arrival to the emergency department he was having ongoing chest discomfort. Nitropaste was applied and the symptoms did seem to improve. DIAGNOSTICS EKG reveals he does mechanism with poor R-wave progression. Chest xray right lung atelectasis versus infiltrate. Laboratory reviewed, WBC 5.8, hemoglobin 13.8, platelets 185, sodium 138, potassium 4.4, creatinine 0.76, magnesium 2.1, cardiac enzymes negative 3, LDL 153, HDL 38. He takes no daily cardiac medications. REVIEW OF SYSTEMS At the time of my exam: CONSTITUTIONAL: Denies fever or chills. CARDIOVASCULAR: Denies chest pain, shortness of breath, orthopnea, PND or palpitations. RESPIRATORY: Denies cough. GASTROINTESTINAL: Denies abdominal pain, diarrhea, constipation, nausea or vomiting. MUSCULOSKELETAL: Denies myalgias. NEUROLOGIC: Denies numbness, tingling or weakness. ENDOCRINE: Denies fatigue, weight change, polydipsia or polyurina. GENITOURINARY: Denies burning, hematuria or urgency with micturation. HEMATOLOGIC: Denies history of anemia or bleeding. PHYSICAL EXAMINATION Blood pressure 145/86 heart rate 75 afebrile and maintaining oxygen saturation on room air. CONSTITUTIONAL: No apparent distress. HEENT: Head is normocephalic. Pupils are equal, round. Sclerae anicteric. Mucous membranes of the mouth are moist. No JVD. No carotid bruit. CHEST EXAMINATION: Lungs are clear to auscultation. No chest wall tenderness is noted on palpation or with deep breathing. Diminished bilaterally. HEART EXAMINATION: Regular rate and rhythm. S1, S2 heard. No murmurs, gallops or rub. ABDOMEN: Soft, nontender. Positive bowel sounds. EXTREMITIES: 2+ peripheral pulses, no lower extremity edema and no calf tenderness. NEUROLOGIC EXAMINATION: Patient is awake, alert and oriented x3. ASSESSMENT Chest pain, atypical. Acute coronary event has been ruled out. COPD Dyslipidemia Chronic nicotine dependence Family history of cardiomyopathy and his father in his 40s. PLAN An acute coronary event has been ruled out. Proceed with dobutamine stress echocardiogram to assess for stress-induced cardiac ischemia. The patient is complaining of significant chronic lower back discomfort is requesting analgesia. We'll give one-time dose of IV morphine prior to stress testing so he is able to lay flat and become comfortable. Obtain 2-D echocardiogram and Doppler study to assess cardiac structure and function. Lengthy discussion with the patient regarding his dyslipidemia and risk factors for coronary artery disease in the future. He would prefer lifestyle modifications in the form of diet and exercise for 3 month trial to see if this will lower his LDL cholesterol less than 100. At that point if he is unable to give him with natural homeopathic remedies he will consider statin medication. His current 10 year ASCVD risk is 19.5%. Given his persistently elevated blood pressures recommend initiation of losartan 25 mg daily. Thank you kindly for this consultation. Nurse Practitioner note has been reviewed, I agree with a documented findings and plan of care. Patient was seen and examined. Past Medical History Past Medical History: Asthma, Blood Disorder, Cancer, COPD, Pneumonia Additional Past Medical History / Comment(s): Chronic cervical and back pain, herniated discs/DDD, bronchitis, ulcerative colitis, lower GI bleed, hemachromatosis, R bicep tear, several concussions, skin cancer removed from face. History of Any Multi-Drug Resistant Organisms: None Reported Past Surgical History: Heart Catheterization, Hernia Repair, Orthopedic Surgery, Tonsillectomy Additional Past Surgical History / Comment(s): Bilateral inguinal hernia repairs, R spermatic cord clipped, 14 surgeries to remove rejected hernia mesh, R knee arthroscopies x 3, bilateral heel spurs removed x2, R elbow ORIF/later failed attempt to remove screw, bilateral blepharoplasties, colonoscopies, EGD, sigmoidoscopy. Past Anesthesia/Blood Transfusion Reactions: No Reported Reaction, Family His tory of Problems w/ Anesthesia Additional Past Anesthesia/Blood Transfusion Reaction / Comment(s): dad and brother had problems coming out of anesthesia Smoking Status: Current every day smoker - Past Family History Sister(s) Family Medical History: Cancer Additional Family Medical History / Comment(s): #1 sister pasted away with lung CA,#2 sister breast CA Mother Family Medical History: AFIB, Diabetes Mellitus Additional Family Medical History / Comment(s): Mother is living. Father Family Medical History: Diabetes Mellitus, Vascular Disorder Additional Family Medical History / Comment(s): Father from cardiomyopathy. Medications and Allergies Home Medications Medication Instructions Recorded Confirmed Type Albuterol Nebulized [Ventolin 2.5 mg INHALATION RT-Q6H PRN 06/10/18 06/13/19 History Nebulized] Albuterol Sulfate [Proair Hfa] 2 puff INHALATION RT-Q6H PRN 06/10/18 06/13/19 History Ipratropium Nebulized [Atrovent 0.5 mg INHALATION RT-Q6H PRN 06/10/18 06/13/19 History Nebulized 0.2 MG/ML] Dicyclomine [Bentyl] 20 mg PO QID PRN #60 tab 06/12/18 06/13/19 Rx L.acidoph,Paracasei, B.lactis 1 cap PO DAILY 06/11/19 06/13/19 History [Probiotic] Tiotropium [place] [Spiriva 1 spray INHALATION RT-DAILY PRN 06/11/19 06/13/19 History Respimat] Turmeric Root Extract [Turmeric] 500 mg PO DAILY 06/11/19 06/13/19 History Fluticasone/Umeclidin/Vilanter 1 puff INHALATION RT-DAILY PRN 06/13/19 06/13/19 History [Trelegy Ellipta 100-62.5-25] Promethazine 6.25MG/5Ml [Phenergan 10 ml PO Q4H PRN 06/13/19 06/13/19 History Syrup] Allergies Allergy/AdvReac Type Severity Reaction Status Date / Time varenicline [From Chantix] AdvReac suicidal Verified 06/13/19 12:31 thoughts Physical Exam Vitals: Vital Signs Temp Pulse Pulse Resp BP BP BP 06/14/19 07:50 97.7 F 75 18 145/86 06/14/19 07:39 80 06/14/19 07:22 76 06/14/19 04:00 98.4 F 75 18 124/80 06/14/19 00:00 98.1 F 87 17 148/100 06/13/19 20:41 86 06/13/19 20:00 87 17 06/13/19 19:20 98.2 F 97 17 123/75 06/13/19 16:13 90 06/13/19 16:03 90 06/13/19 16:00 80 18 06/13/19 14:06 97.5 F L 80 18 145/77 06/13/19 13:30 111/68 06/13/19 13:00 109/57 06/13/19 12:30 109/67 06/13/19 12:00 139/77 06/13/19 11:30 92 19 142/86 06/13/19 11:00 147/92 06/13/19 10:30 155/102 06/13/19 10:00 157/92 06/13/19 08:58 98.2 F 98 18 165/97 Pulse Ox 06/14/19 07:50 98 06/14/19 07:39 06/14/19 07:22 06/14/19 04:00 98 06/14/19 00:00 99 06/13/19 20:41 06/13/19 20:00 06/13/19 19:20 98 06/13/19 16:13 06/13/19 16:03 06/13/19 16:00 06/13/19 14:06 98 06/13/19 13:30 06/13/19 13:00 95 06/13/19 12:30 96 06/13/19 12:00 96 06/13/19 11:30 96 06/13/19 11:00 95 06/13/19 10:30 95 06/13/19 10:00 96 06/13/19 08:58 99 Intake and Output 06/13/19 06/14/19 06/14/19 22:59 06:59 14:59 Intake Total 360 Balance 360 Intake: Oral 360 Other: Voiding Method Toilet Toilet # Voids 2 2 Weight 96.5 kg Results 06/14/19 06:47 06/14/19 05:43 Cardiac Enzymes 06/13/19 06/13/19 06/13/19 Range/Units 09:17 09:17 14:44 AST 29 (17-59) U/L Troponin I <0.012 <0.012 (0.000-0.034) ng/mL 06/13/19 Range/Units 20:19 AST (17-59) U/L Troponin I <0.012 (0.000-0.034) ng/mL Coagulation 06/13/19 06/13/19 Range/Units 09:17 20:19 PT 9.5 (9.0-12.0) sec APTT 26.4 34.0 H (22.0-30.0) sec Lipids 06/14/19 Range/Units 05:43 Triglycerides 156 H (<150) mg/dL Cholesterol 222 H (<200) mg/dL HDL Cholesterol 38 L (40-60) mg/dL CBC 06/13/19 06/14/19 Range/Units 09:17 06:47 WBC 7.9 5.8 (3.8-10.6) k/uL RBC 5.96 H 5.31 (4.30-5.90) m/uL Hgb 15.7 13.8 (13.0-17.5) gm/dL Hct 48.8 44.5 (39.0-53.0) % Plt Count 269 185 (150-450) k/uL Comprehensive Metabolic Panel 06/13/19 06/14/19 Range/Units 09:17 05:43 Sodium 137 138 (137-145) mmol/L Potassium 4.4 4.4 (3.5-5.1) mmol/L Chloride 104 108 H (98-107) mmol/L Carbon Dioxide 23 25 (22-30) mmol/L BUN 16 12 (9-20) mg/dL Creatinine 0.83 0.76 (0.66-1.25) mg/dL Glucose 103 H 89 (74-99) mg/dL Calcium 9.9 8.9 (8.4-10.2) mg/dL AST 29 (17-59) U/L ALT 26 (4-49) U/L Alkaline Phosphatase 97 (38-126) U/L Total Protein 8.1 (6.3-8.2) g/dL Albumin 4.9 (3.5-5.0) g/dL Current Medications Generic Name Dose Route Start Last Admin Trade Name Freq PRN Reason Stop Dose Admin Albuterol/Ipratropium 3 ml 06/13/19 16:00 06/14/19 07:22 Duoneb 0.5 Mg-3 Mg/3 Ml Soln INHALATION 3 ml RT-QID JEREMIAS Administration Albuterol/Ipratropium 3 ml 06/13/19 15:06 Duoneb 0.5 Mg-3 Mg/3 Ml Soln INHALATION RT-Q2H PRN Shortness Of Breath Or Wheezing Aspirin 325 mg 06/14/19 09:00 Aspirin PO DAILY JEREMIAS Budesonide/Formoterol Fumarate 2 puff 06/13/19 20:00 06/14/19 07:22 Symbicort 80-4.5 Mcg Inhaler INHALATION 2 puff RT-BID JEREMIAS Administration Dicyclomine HCl 20 mg 06/13/19 15:06 Bentyl PO QID PRN Diarrhea Heparin Sodium/Sodium Chloride 250 mls @ 9.996 mls/hr 06/13/19 12:45 06/13/19 13:30 25,000 unit/ Sodium Chloride IV 10.25 units/kg/hr .Q24H JEREMIAS 9.996 mls/hr Administration Protocol 10.25 UNITS/KG/HR Acetaminophen 1,000 mg/ IV 100 mls @ 400 mls/hr 06/13/19 15:08 06/14/19 02:43 Solution IVPB 06/14/19 12:14 400 mls/hr Q6HR PRN Administration Pain Ipratropium [place] 2.5 mg 06/13/19 16:00 06/14/19 07:22 Atrovent Nebulized INHALATION Not Given RT-QID [facility] Nicotine 1 patch 06/13/19 15:15 06/13/19 15:47 Habitrol 21mg/24hr Patch TRANSDERM 1 patch DAILY JEREMIAS Administration Nitroglycerin 0.4 mg 06/13/19 12:41 Nitrostat SUBLINGUAL Q5M PRN Chest Pain Nitroglycerin 1 inch 06/13/19 18:00 06/14/19 04:55 Nitro-Bid Oint TOPICAL Not Given Q6HR JEREMIAS Pantoprazole Sodium 40 mg 06/13/19 15:15 06/13/19 15:47 Protonix IVP 40 mg DAILY JEREMIAS Administration Intake and Output 06/13/19 06/14/19 06/14/19 22:59 06:59 14:59 Intake Total 360 Balance 360 Intake: Oral 360 Other: Voiding Method Toilet Toilet # Voids 2 2 Weight 96.5 kg 06/14/19 06:47 06/14/19 05:43
[2019-06-14] MEDS: LOSARTAN 25 MG TAB PO SCH ×2 (10:37→10:55)
--- NOTE | 2019-06-14 11:37 | P.HPIM ---
History of Present Illness H&P Date: 06/14/19 Chief Complaint: chest pain Doug Sun is a 58-year-old male with PMH significant for COPD, ulcerative colitis, HTN, chronic back and neck pain, tobacco abuse who presented to the ED complaining of chest pain radiating into his back and LUE. He reports that his neck pain had been flared over the past few weeks and he was given a steroid taper from his PCP. Due to this his BP has been elevated as high as 170s at home which pt attributes to his chronic pain. He came to the emergency department Thursday evening secondary to hypertension was evaluated in the emergency room and ultimately sent home with instructions to follow-up with his primary care physician on Thursday. He woke up Thursday morning sat down at his computer to do his regularly scheduled breathing treatment and he felt he had a cold sensation in his left hand that moved up his left arm into the left neck, left jaw and left precordial region with associated chest discomfort. On presentation BP 165/97, EKG NSR with poor R progression, trop negative x3, CXR no acute process. Pt was given nitro paste with some improvement in his pain. Currently he continues to complain of chest discomfort radiating into his mid back. Review of Systems All systems: negative Constitutional: Denies chills, Denies fever Eyes: denies blurred vision, denies pain Ears, nose, mouth and throat: Denies headache, Denies sore throat Cardiovascular: Reports chest pain, Reports high blood pressure, Denies dyspnea on exertion, Denies irregular heart beat, Denies leg edema, Denies shortness of breath Respiratory: Denies cough Gastrointestinal: Denies abdominal pain, Denies diarrhea, Denies nausea, Denies vomiting Musculoskeletal: Denies myalgias Integumentary: Denies pruritus, Denies rash Neurological: Reports as per HPI, Reports numbness, Reports tingling, Denies weakness Psychiatric: Denies anxiety, Denies depression Endocrine: Denies fatigue, Denies weight change Past Medical History Past Medical History: Asthma, Blood Disorder, Cancer, COPD, Pneumonia Additional Past Medical History / Comment(s): Chronic cervical and back pain, herniated discs/DDD, bronchitis, ulcerative colitis, lower GI bleed, hemachromatosis, R bicep tear, several concussions, skin cancer removed from face. History of Any Multi-Drug Resistant Organisms: None Reported Past Surgical History: Heart Catheterization, Hernia Repair, Orthopedic Surgery, Tonsillectomy Additional Past Surgical History / Comment(s): Bilateral inguinal hernia repairs, R spermatic cord clipped, 14 surgeries to remove rejected hernia mesh, R knee arthroscopies x 3, bilateral heel spurs removed x2, R elbow ORIF/later failed attempt to remove screw, bilateral blepharoplasties, colonoscopies, EGD, sigmoidoscopy. Past Anesthesia/Blood Transfusion Reactions: No Reported Reaction, Family History of Problems w/ Anesthesia Additional Past Anesthesia/Blood Transfusion Reaction / Comment(s): dad and brother had problems coming out of anesthesia Smoking Status: Current every day smoker - Past Family History Sister(s) Family Medical History: Cancer Additional Family Medical History / Comment(s): #1 sister pasted away with lung CA,#2 sister breast CA Mother Family Medical History: AFIB, Diabetes Mellitus Additional Family Medical History / Comment(s): Mother is living. Father Family Medical History: Diabetes Mellitus, Vascular Disorder Additional Family Medical History / Comment(s): Father from cardiomyopathy. Medications and Allergies Home Medications Medication Instructions Recorded Confirmed Type Albuterol Nebulized [Ventolin 2.5 mg INHALATION RT-Q6H PRN 06/10/18 06/13/19 His tory Nebulized] Albuterol Sulfate [Proair Hfa] 2 puff INHALATION RT-Q6H PRN 06/10/18 06/13/19 History Ipratropium Nebulized [Atrovent 0.5 mg INHALATION RT-Q6H PRN 06/10/18 06/13/19 History Nebulized 0.2 MG/ML] Dicyclomine [Bentyl] 20 mg PO QID PRN #60 tab 06/12/18 06/13/19 Rx L.acidoph,Paracasei, B.lactis 1 cap PO DAILY 06/11/19 06/13/19 History [Probiotic] Tiotropium [place] [Spiriva 1 spray INHALATION RT-DAILY PRN 06/11/19 06/13/19 History Respimat] Turmeric Root Extract [Turmeric] 500 mg PO DAILY 06/11/19 06/13/19 History Fluticasone/Umeclidin/Vilanter 1 puff INHALATION RT-DAILY PRN 06/13/19 06/13/19 History [Trelegy Ellipta 100-62.5-25] Promethazine 6.25MG/5Ml [Phenergan 10 ml PO Q4H PRN 06/13/19 06/13/19 History Syrup] Allergies Allergy/AdvReac Type Severity Reaction Status Date / Time varenicline [From Chantix] AdvReac suicidal Verified 06/13/19 12:31 thoughts Physical Exam Vitals: Vital Signs Temp Pulse Pulse Resp BP BP BP 06/14/19 11:21 80 06/14/19 11:10 84 06/14/19 07:50 97.7 F 75 18 145/86 06/14/19 07:39 80 06/14/19 07:22 76 06/14/19 04:00 98.4 F 75 18 124/80 06/14/19 00:00 98.1 F 87 17 148/100 06/13/19 20:41 86 06/13/19 20:00 87 17 06/13/19 19:20 98.2 F 97 17 123/75 06/13/19 16:13 90 06/13/19 16:03 90 06/13/19 16:00 80 18 06/13/19 14:06 97.5 F L 80 18 145/77 06/13/19 13:30 111/68 06/13/19 13:00 109/57 06/13/19 12:30 109/67 06/13/19 12:00 139/77 Pulse Ox 06/14/19 11:21 06/14/19 11:10 06/14/19 07:50 98 06/14/19 07:39 06/14/19 07:22 06/14/19 04:00 98 06/14/19 00:00 99 06/13/19 20:41 06/13/19 20:00 06/13/19 19:20 98 06/13/19 16:13 06/13/19 16:03 06/13/19 16:00 06/13/19 14:06 98 06/13/19 13:30 06/13/19 13:00 95 06/13/19 12:30 96 06/13/19 12:00 96 Intake and Output 06/13/19 06/14/19 06/14/19 22:59 06:59 14:59 Intake Total 360 Balance 360 Intake: Oral 360 Other: Voiding Method Toilet Toilet Toilet # Voids 2 2 Weight 96.5 kg General: well nourished, well developed, NAD. Vitals reviewed Eyes: PERRL, EOMI, conjunctiva normal HENT: normocephalic, mucus membranes moist Neck: supple, no JVD Lungs: normal respiratory effort, no wheezes or rales CV: Regular rate and rhythm, no murmur. Peripheral pulses 2+ Abdomen: soft, nondistended, no organomegaly Lymph: no cervical or axillary LAD Skin: warm and dry. Neuro: A&Ox3, normal mood and affect. Spurling positive Results CBC & Chem 7: 06/14/19 06:47 06/14/19 05:43 Labs: Abnormal Lab Results - Last 24 Hours (Table) 06/13/19 06/14/19 06/14/19 Range/Units 20:19 05:43 06:47 RDW 15.7 H (11.5-15.5) % APTT 34.0 H (22.0-30.0) sec Chloride 108 H (98-107) mmol/L Triglycerides 156 H (<150) mg/dL Cholesterol 222 H (<200) mg/dL LDL Cholesterol, Calc 153 H (0-99) mg/dL HDL Cholesterol 38 L (40-60) mg/dL Thrombosis Risk Factor Assmnt - Choose All That Apply Any of the Below Risk Factors Present?: Yes Each Factor Represents 1 point: Abnormal pulmonary function (COPD), Age 41-60 years, Obesity (BMI >25) Other Risk Factors: Yes Each Risk Factor Represents 2 Points: Malignancy Other congenital or acquired thrombophilia - If yes, enter type in comment: No Thrombosis Risk Factor Assessment Total Risk Factor Score: 5 Thrombosis Risk Factor Assessment Level: High Risk Assessment and Plan (1) COPD (chronic obstructive pulmonary disease) Current Visit: Yes Status: Acute Code(s): J44.9 - CHRONIC OBSTRUCTIVE PULMONARY DISEASE, UNSPECIFIED SNOMED Code(s): 12085084 (2) Tobacco abuse Current Visit: Yes Status: Acute Code(s): Z72.0 - TOBACCO USE SNOMED Code(s): 652719834 (3) Essential hypertension Current Visit: Yes Status: Acute Code(s): I10 - ESSENTIAL (PRIMARY) HYPERTENSION SNOMED Code(s): 86564507 (4) Chest pain Current Visit: No Status: Acute Code(s): R07.9 - CHEST PAIN, UNSPECIFIED SNOMED Code(s): 33671968 Plan: 1. Chest pain. ACS ruled out. Cardiology consulted for further evaluation. Losartan started, control BP 2. Chronic neck pain. Question contribution to chest discomfort. Start gabapentin 3. Ulcerative colitis. Continue bentyl 4. COPD. Tobacco abuse. Nicotine replacement therapy
[2019-06-14] MEDS: NICOTINE 21MG/24HR PATCH TRANSDERM SCH (14:16)
[2019-06-14] MEDS: GABAPENTIN 300 MG CAP PO SCH ×2 (14:17→15:27)
[2019-06-14] MEDS: PANTOPRAZOLE 40 MG/10 ML VIAL IVP SCH (15:27)
[2019-06-14 15:37] VITALS: BP 126/80; PULSE 95; TEMP 98.2
--- NOTE | 2019-06-14 19:36 | ECHOF ---
Referral Reason:cp MEASUREMENTS -------- HEIGHT: 172.7 cm WEIGHT: 96.2 kg BP: IVSd: 1.2 cm (0.6 - 1.1) LVIDd: 3.0 cm (3.9 - 5.3) LVPWd: 1.5 cm (0.6 - 1.1) IVSs: 1.5 cm LVIDs: 2.0 cm LVPWs: 1.7 cm LAESV Index (A-L): 15.17 ml/m Ao Diam: 3.3 cm (2.0 - 3.7) AV Cusp: 2.2 cm (1.5 - 2.6) LA Diam: 3.5 cm (2.7 - 3.8) MV EXCURSION: 16.659 mm (> 18.000) MV EF SLOPE: 90 mm/s (70 - 150) EPSS: 0.8 cm MV E Kiran: 0.69 m/s MV DecT: 164 ms MV A Kiran: 0.71 m/s MV E/A Ratio: 0.98 RAP: 5.00 mmHg RVSP: 11.77 mmHg FINDINGS -------- Sinus rhythm. This was a technically good study. The left ventricular size is normal. There is mild concentric left ventricular hypertrophy. Overa ll left ventricular systolic function is normal with, an EF between 55 - 60 %. The diastolic fillin g pattern is normal for the age of the patient 9.36. The right ventricle is normal in size. The left atrial size is normal. The right atrial size is normal. The aortic valve is trileaflet and appears structurally normal. The mitral valve is normal. There is trace mitral regurgitation. The tricuspid valve appears structurally normal. Trace tricuspid regurgitation present. Right kimberli tricular systolic pressure is normal at < 35 mmHg. There is no pulmonic regurgitation present. The aortic root size is normal. Normal inferior vena cava with normal inspiratory collapse consistent with estimated right atrial pre ssure of 5 mmHg. There is no pericardial effusion. CONCLUSIONS -------- 1. Sinus rhythm. 2. This was a technically good study. 3. The left ventricular size is normal. 4. There is mild concentric left ventricular hypertrophy. 5. Overall left ventricular systolic function is normal with, an EF between 55 - 60 %. 6. The diastolic filling pattern is normal for the age of the patient 9.36 7. The right ventricle is normal in size. 8. The left atrial size is normal. 9. The right atrial size is normal. 10. The aortic valve is trileaflet and appears structurally normal. 11. The mitral valve is normal. 12. There is trace mitral regurgitation. 13. The tricuspid valve appears structurally normal. 14. Trace tricuspid regurgitation present. 15. Right ventricular systolic pressure is normal at < 35 mmHg. 16. There is no pulmonic regurgitation present. 17. The aortic root size is normal. 18. Normal inferior vena cava with normal inspiratory collapse consistent with estimated right atrial pressure of 5 mmHg. 19. There is no pericardial effusion. ATHLETIC SHOE DESIGNER: Terrie Ramos RDCS
[2019-06-14] MEDS ORDERED: ATORVASTATIN 40 MG TAB PO SCH (21:00)
[2019-06-15] MEDS ORDERED: PANTOPRAZOLE 40 MG TABLET PO SCH (07:30)
--- NOTE | 2019-06-15 11:48 | ECHOS ---
STRESS ECHOCARDIOGRAM INDICATIONS: Chest pain. BASELINE HEART RATE: 94 BASELINE BLOOD PRESSURE: 163/98 MAXIMUM HEART RATE: 141 MAXIMUM BLOOD PRESSURE: 212/87 85% MPHR: 139 100% MPHR: 163 MAXIMUM STAGE REACHED: 4 TOTAL EXERCISE TIME: 10:00 CLINICAL INFORMATION: A dobutamine echocardiographic study was performed, peak heart rate of 141 was achieved. Maximum blood pressure of 212/87 mmHg was noted. Patient did not complain of any chest pain during the test. Resting EKG shows normal sinus rhythm with normal UT interval and QRS duration and normal ST-T waves. During dobutamine infusion, J-point depression with upsloping ST segments are noted. Occasional PVCs were noted. The baseline echocardiographic images reveals normal left ventricular chamber size with normal left ventricular systolic function. At the peak dose of dobutamine infusion, normal increase in the wall thickness and contractility was noted. FINAL IMPRESSION: This dobutamine stress echocardiographic study is negative for stress-induced ischemia. EKG portion of the stress is not suggestive of ischemia. Occasional PVCs are noted. MMODL / IJN: [id number] /
== END 2019-06-14 17:43 | disposition home or self-care (01) ==
LOC: EC 08:53 → 1SOBS 12:42
PROVIDERS: ADMIT Family Medicine; ATTEND Family Medicine
DX: R07.89 Other chest pain (principal); R20.2 Paresthesia of skin; J44.9 Chronic obstructive pulmonary disease, unspecified; I10 Essential (primary) hypertension; E78.5 Hyperlipidemia, unspecified; G89.29 Other chronic pain; M54.9 Dorsalgia, unspecified; M54.2 Cervicalgia; Z85.828 Personal history of other malignant neoplasm of skin; E83.119 Hemochromatosis, unspecified; F41.9 Anxiety disorder, unspecified; M51.9 Unspecified thoracic, thoracolumbar and lumbosacral intervertebral disc disorder; R51 Headache; F17.210 Nicotine dependence, cigarettes, uncomplicated; K51.90 Ulcerative colitis, unspecified, without complications; Z79.899 Other long term (current) drug therapy; Z88.8 Allergy status to other drugs, medicaments and biological substances; Z80.3 Family history of malignant neoplasm of breast; Z80.1 Family history of malignant neoplasm of trachea, bronchus and lung; Z83.3 Family history of diabetes mellitus; Z82.49 Family history of ischemic heart disease and other diseases of the circulatory system; Z90.89 Acquired absence of other organs
CPT/HCPCS: 96365; 96366; 96375 ×3; 99285; 36415; 94640 ×4; 93005; 93306; 93351; 80061; 80053; 80048; 82728; 83735; 84484; 85025 ×2; 85610; 85730; 71046; G0378 ×2; S4990 ×2; J1250; J2270; J1644 ×2; J0131 ×2; C9113; J1170

== ENCOUNTER 2021-08-15 11:01 | Inpatient (IN) | payer MEDICARE, OTHER ==
[2021-08-15] MEDS ORDERED: SODIUM CHLORIDE 0.9% 500 ML 500 ML IV STA (11:04)
[2021-08-15] MEDS ORDERED: HEPARIN SODIUM 1,000 UN/ML (10ML VL) IV ONE ×2 (11:04→11:41)
[2021-08-15] MEDS ORDERED: NITROGLYCERIN OINT 1 INCH/GM PACKET TOPICAL STA (11:04)
[2021-08-15] MEDS ORDERED: VERAPAMIL 2.5 MG/ML 2 ML AMP ONE (11:07)
--- NOTE | 2021-08-15 11:08 | ED ---
General Adult HPI - General Stated complaint: STEMI Time Seen by Provider: 08/15/21 11:01 Source: patient, RN notes reviewed, old records reviewed - History of Present Illness Initial comments: This is a 7-year-old male who presents emergency Department stating he has some chest discomfort last evening he thought maybe he was just his hiatal hernia but he was unable to get any sleep throughout the night the pain radiated to both shoulders and into his jaw. He eventually called EMS when they arrived they gave him nitroglycerin that helped decrease the pain significantly. Patient also received an aspirin. Patient states he is a smoker. He has a strong family history of heart disease. He also has a history of high blood pressure. He does not know about his cholesterol. Patient states he still has a little bit of pain but not as bad as it was. EMS sent. An EKG to us prior to arrival it showed ST segment elevation in the inferior leads. I called a STEMI overhead at that time. - Related Data Home Medications Medication Instructions Recorded Confirmed Albuterol Nebulized [Ventolin 2.5 mg INHALATION RT-Q6H PRN 06/10/18 06/13/19 Nebulized] Albuterol Sulfate [Proair Hfa] 2 puff INHALATION RT-Q6H PRN 06/10/18 06/13/19 Ipratropium Nebulized [Atrovent 0.5 mg INHALATION RT-Q6H PRN 06/10/18 06/13/19 Nebulized 0.2 MG/ML] L.acidoph,Paracasei, B.lactis 1 cap PO DAILY 06/11/19 06/13/19 [Probiotic] Tiotropium Echo [Spiriva 1 spray INHALATION RT-DAILY PRN 06/11/19 06/13/19 Respimat] Turmeric Root Extract [Turmeric] 500 mg PO DAILY 06/11/19 06/13/19 Fluticasone/Umeclidin/Vilanter 1 puff INHALATION RT-DAILY PRN 06/13/19 06/13/19 [Trelegy Ellipta 100-62.5-25] Promethazine 6.25MG/5Ml [Phenergan 10 ml PO Q4H PRN 06/13/19 06/13/19 Syrup] Previous Rx's Medication Instructions Recorded Dicyclomine [Bentyl] 20 mg PO QID PRN #60 tab 03/02/19 Losartan [Cozaar] 25 mg PO DAILY #30 tab 06/14/19 Nicotine 21Mg/24Hr Patch [Habitrol] 1 patch TRANSDERM DAILY #30 patch 06/14/19 Allergies Allergy/AdvReac Type Severity Reaction Status Date / Time varenicline [From Chantix] AdvReac suicidal Verified 06/13/19 12:31 thoughts Review of Systems ROS Statement: Those systems with pertinent positive or pertinent negative responses have been documented in the HPI. ROS Other: All systems not noted in ROS Statement are negative. Past Medical History Past Medical History: Asthma, Blood Disorder, Cancer, COPD, Pneumonia Additional Past Medical History / Comment(s): Chronic cervical and back pain, herniated discs/DDD, bronchitis, ulcerative colitis, lower GI bleed, hemachromatosis, R bicep tear, several concussions, skin cancer removed from face. History of Any Multi-Drug Resistant Organisms: None Reported Past Surgical History: Heart Catheterization, Hernia Repair, Orthopedic Surgery, Tonsillectomy Additional Past Surgical History / Comment(s): Bilateral inguinal hernia repairs, R spermatic cord clipped, 14 surgeries to remove rejected hernia mesh, R knee arthroscopies x 3, bilateral heel spurs removed x2, R elbow ORIF/later failed attempt to remove screw, bilateral blepharoplasties, colonoscopies, EGD, sigmoidoscopy. Past Anesthesia/Blood Transfusion Reactions: No Reported Reaction, Family History of Problems w/ Anesthesia Additional Past Anesthesia/Blood Transfusion Reaction / Comment(s): dad and brother had problems coming out of anesthesia Past Psychological History: Anxiety, Depression - Past Family History Sister(s) Family Medical History: Cancer Additional Family Medical History / Comment(s): #1 sister pasted away with lung CA,#2 sister breast CA Mother Family Medical History: AFIB, Diabetes Mellitus Additional Family Medical History / Comment(s): Mother is living. Father Family Medical History: Diabetes Mellitus, Vascular Disorder Additional Family Medical History / Comment(s): Father from cardiomyopathy. General Exam - General Exam Comments Initial Comments: GENERAL: Patient is well-developed and well-nourished. Patient is nontoxic and well- hydrated and is in mild distress. ENT: Neck is soft and supple. No significant lymphadenopathy is noted. Oropharynx is clear. Moist mucous membranes. Neck has full range of motion without eliciting any pain. EYES: The sclera were anicteric and conjunctiva were pink and moist. Extraocular movements were intact and pupils were equal round and reactive to light. Eyelids were unremarkable. PULMONARY: Unlabored respirations. Good breath sounds bilaterally. No audible rales rhonchi or wheezing was noted. CARDIOVASCULAR: There is a regular rate and rhythm without any murmurs gallops or rubs. ABDOMEN: Soft and nontender with normal bowel sounds. SKIN: Skin is clear with no lesions or rashes and otherwise unremarkable. NEUROLOGIC: Patient is alert and oriented x3. Cranial nerves II through XII are grossly intact. Motor and sensory are also intact. Normal speech, volume and content. Symmetrical smile. MUSCULOSKELETAL: Normal extremities with adequate strength and full range of motion. LYMPHATICS: No significant lymphadenopathy is noted PSYCHIATRIC: Normal psychiatric evaluation. Course Vital Signs 08/15/21 11:05 Pulse Rate 100 Respiratory 18 Rate Blood Pressure 170/101 O2 Sat by Pulse 97 Oximetry Medical Decision Making - Medical Decision Making EKG shows sinus rhythm at 95 bpm ID interval 188 QRS is under 12 QT interval 342 QTC is 394. Patient's EKG shows significant ST segment elevation in the inferior leads and ST segment depression in leads 1 and aVL. Patient will go to the [facility]. I spoke with Dr. Conrad he agreed to admit the patient I admitted the patient remaining orders I consult cardiology. Chest x-ray shows no acute abnormality Critical Care Time Critical Care Time: Yes Total Critical Care Time: 35 Disposition Clinical Impression: ST elevation myocardial infarction (STEMI) Disposition: ADMITTED IP TO THIS HOSP Referrals: Krystin Conrad DO [Primary Care Provider] - 1-2 days Time of Disposition: 11:12
[2021-08-15] MEDS ORDERED: ATORVASTATIN 80 MG TAB PO STA (11:10)
[2021-08-15] MEDS ORDERED: IV FLUID CONTINUATION 1,000 ML IV ONE ×2 (11:18)
[2021-08-15] MEDS ORDERED: LIDOCAINE 1% INJ 10MG/ML (5 ML VIAL-PF) SQ ONE (11:31)
[2021-08-15] MEDS ORDERED: fentaNYL (PF) 50 MCG/ML 2 ML AMP IV ONE (11:32)
[2021-08-15] MEDS: VERAPAMIL SYRINGE (5 MG/10 ML) INTRAARTER ONE ×2 (11:32→12:02)
[2021-08-15] MEDS ORDERED: MIDAZOLAM 2 MG/2 ML VIAL IV ONE (11:32)
[2021-08-15] MEDS ORDERED: fentaNYL (PF) 50 MCG/ML 2 ML AMP ONE (11:35)
[2021-08-15] MEDS ORDERED: HEPARIN SODIUM 1,000 UN/ML (10ML VL) ONE (11:37)
[2021-08-15 11:41] LABS: Basophils # (A) 0.1 k/uL (0-0.2); Basophils % (A) 1 %; Eosinophils # (A) 0.1 k/uL (0-0.7); Eosinophils % (A) 2 %; HCT 50.2 % (39.0-53.0); Lymphocytes # (A) 1.5 k/uL (1.0-4.8); Lymphocytes % (A) 17 %; MCH 31.1 pg (25.0-35.0); MCHC 33.9 g/dL (31.0-37.0); MCV 91.7 fL (80.0-100.0); Monocytes # (A) 0.5 k/uL (0-1.0); Monocytes % (A) 6 %; Neutrophils # (A) 6.1 k/uL (1.3-7.7); Neutrophils % (A) 72 %; Platelet Count 271 k/uL (150-450); RBC 5.47 m/uL (4.30-5.90); RDW 12.5 % (11.5-15.5); WBC 8.5 k/uL (3.8-10.6)
[2021-08-15] MEDS ORDERED: CLOPIDOGREL 75 MG TAB ONE (11:41)
[2021-08-15] MEDS ORDERED: CLOPIDOGREL 75 MG TAB PO ONE (11:42)
--- NOTE | 2021-08-15 11:46 | P.CRDCN ---
History of Present Illness History of present illness: HISTORY OF PRESENTING ILLNESS This is a pleasant 61-year-old male past medical history significant for hypertension, family history of coronary disease, chronic nicotine dependence, COPD, mild nonobstructive coronary artery disease (states from cardiac catheterization in [facility] performed about 2 years ago). He does not follow with a choral teacher. Did see Dr. Lomas in 2018, no choral teacher since. We have been asked to see in consultation for STEMI. Presents to the emergency department with complaints of ongoing chest pain since last night. He started to have chest pressure last night located in the center of his chest, his chest discomfort continued and had difficulty sleeping. This morning he had continued chest pressure with radiation across his chest, back and shoulders. He called EMS. EKG revealed initial ST elevation in leads III and aVF with reciprocal changes in the lateral leads. Patient given Nitro with some improvement. Transported to [facility]. DIAGNOSTICS EKG reveals sinus rhythm, heart rate 95, ST elevation in inferior leads with reciprocal changes in later leads Laboratory data not available Current home medications include losartan 25 mg daily, nicotine patch, Albuterol, Spiriva REVIEW OF SYSTEMS At the time of my exam: CONSTITUTIONAL: Denies fever or chills. CARDIOVASCULAR: + chest pain, Denies shortness of breath, orthopnea, PND or palpitations. RESPIRATORY: Denies cough. GASTROINTESTINAL: Denies abdominal pain, diarrhea, constipation, nausea or vomiting. MUSCULOSKELETAL: Denies myalgias. NEUROLOGIC: Denies numbness, tingling, headacbe or weakness. ENDOCRINE: Denies fatigue, weight change, polydipsia or polyurina. GENITOURINARY: Denies burning, hematuria or urgency with micturation. HEMATOLOGIC: Denies history of anemia or bleeding. PHYSICAL EXAMINATION Blood pressure 166/105 HR 97, afebrile 98% on room air CONSTITUTIONAL: No apparent distress. HEENT: Head is normocephalic. Pupils are equal, round. Sclerae anicteric. Mucous membranes of the mouth are moist. No JVD. No carotid bruit. CHEST EXAMINATION: Lungs are clear to auscultation. No chest wall tenderness is noted on palpation or with deep breathing. HEART EXAMINATION: Regular rate and rhythm. S1, S2 heard. No murmurs, gallops or rub. ABDOMEN: Soft, nontender. Positive bowel sounds. EXTREMITIES: 2+ peripheral pulses, no lower extremity edema and no calf tenderness. NEUROLOGIC EXAMINATION: Patient is awake, alert and oriented x3. ASSESSMENT Acute inferior STEMI Hypertension Chronic nicotine dependence History of COPD PLAN Plan for cardiac catheterization with Dr. House I have discussed the risks, benefits and alternative therapies for the above- mentioned procedure and for both sedation/analgesia as well as necessary blood product administration, if indicated, as they pertain to this patient. The patient has indicated understanding and acceptance of the risks and procedures discussed. Questions have been answered appropriately and he is agreeable to move forward with the above-stated procedure. updated at bedside Obtain 2D echocardiogram and doppler study to assess cardiac structure and function. Further recommendations based on clinical course Nurse practitioner note has been reviewed by physician. Signing provider agrees with the documented findings, assessment, and plan of care. Past Medical History Past Medical History: Asthma, Blood Disorder, Cancer, COPD, Pneumonia Additional Past Medical History / Comment(s): Chronic cervical and back pain, herniated discs/DDD, bronchitis, ulcerative colitis, lower GI bleed, hemachromatosis, R bicep tear, several concussions, skin cancer removed from face. History of Any Multi-Drug Resistant Organisms: None Reported Past Surgical History: Heart Catheterization, Hernia Repair, Orthopedic Surgery, Tonsillectomy Additional Past Surgical History / Comment(s): Bilateral inguinal hernia repairs, R spermatic cord clipped, 14 surgeries to remove rejected hernia mesh, R knee arthroscopies x 3, bilateral heel spurs removed x2, R elbow ORIF/later failed attempt to remove screw, bilateral blepharoplasties, colonoscopies, EGD, sigmoidoscopy. Past Anesthesia/Blood Transfusion Reactions: No Reported Reaction, Family History of Problems w/ Anesthesia Additional Past Anesthesia/Blood Transfusion Reaction / Comment(s): dad and brother had problems coming out of anesthesia Past Psychological History: Anxiety, Depression - Past Family History Sister(s) Family Medical History: Cancer Additional Family Medical History / Comment(s): #1 sister pasted away with lung CA,#2 sister breast CA Mother Family Medical History: AFIB, Diabetes Mellitus Additional Family Medical History / Comment(s): Mother is living. Father Family Medical History: Diabetes Mellitus, Vascular Disorder Additional Family Medical History / Comment(s): Father from cardiomyopathy. Medications and Allergies Home Medications Medication Instructions Recorded Confirmed Type Albuterol Nebulized [Ventolin 2.5 mg INHALATION RT-Q6H PRN 06/10/18 06/13/19 History Nebulized] Albuterol Sulfate [Proair Hfa] 2 puff INHALATION RT-Q6H PRN 06/10/18 06/13/19 History Ipratropium Nebulized [Atrovent 0.5 mg INHALATION RT-Q6H PRN 06/10/18 06/13/19 History Nebulized 0.2 MG/ML] Dicyclomine [Bentyl] 20 mg PO QID PRN #60 tab 06/12/18 06/13/19 Rx L.acidoph,Paracasei, B.lactis 1 cap PO DAILY 06/11/19 06/13/19 History [Probiotic] Tiotropium [place] [Spiriva 1 spray INHALATION RT-DAILY PRN 06/11/19 06/13/19 History Respimat] Turmeric Root Extract [Turmeric] 500 mg PO DAILY 06/11/19 06/13/19 History Fluticasone/Umeclidin/Vilanter 1 puff INHALATION RT-DAILY PRN 06/13/19 06/13/19 History [Trelegy Ellipta 100-62.5-25] Promethazine 6.25MG/5Ml [Phenergan 10 ml PO Q4H PRN 06/13/19 06/13/19 History Syrup] Losartan [Cozaar] 25 mg PO DAILY #30 tab 06/14/19 Rx Nicotine 21Mg/24Hr Patch [Habitrol] 1 patch TRANSDERM DAILY #30 patch 06/14/19 Rx Allergies Allergy/AdvReac Type Severity Reaction Status Date / Time varenicline [From Chantix] AdvReac suicidal Verified 06/13/19 12:31 thoughts Physical Exam Vitals: Vital Signs Temp Pulse Resp BP Pulse Ox 08/15/21 11:05 98.1 F 100 18 170/101 97 Intake and Output 08/14/21 08/15/21 08/15/21 22:59 06:59 14:59 Other: Weight 95.254 kg Results Intake and Output 08/14/21 08/15/21 08/15/21 22:59 06:59 14:59 Other: Weight 95.254 kg Patient Weight 08/16/21 06:59 Weight 95.254 kg
[2021-08-15 11:53] LABS: INR 0.9 (<1.2); Partial Thromboplastin Time 33.3 sec (22.0-30.0); Prothrombin Time 10.3 sec (9.0-12.0)
[2021-08-15 11:59] LABS: ALT 30 U/L (4-49); AST 35 U/L (17-59); African American GFR (CKD) >90 (>60 ml/min/1.73 sqM); Albumin 4.3 g/dL (3.5-5.0); Alkaline Phosphatase 102 U/L (38-126); Anion Gap 8 mmol/L; Blood Urea Nitrogen 13 mg/dL (9-20); Calcium 9.1 mg/dL (8.4-10.2); Carbon Dioxide 24 mmol/L (22-30); Chloride 102 mmol/L (98-107); Glucose 109 mg/dL (74-99); Magnesium 1.9 mg/dL (1.6-2.3); Non-African American GFR(CKD) >90 (>60 ml/min/1.73 sqM); Potassium 4.7 mmol/L (3.5-5.1); Sodium 134 mmol/L (137-145); Total Bilirubin 0.7 mg/dL (0.2-1.3); Total Protein 7.6 g/dL (6.3-8.2)
[2021-08-15] MEDS ORDERED: HYDROmorphone 0.5 MG/0.5 ML SYRINGE IVP ONE (11:59)
[2021-08-15] MEDS ORDERED: IOPAMIDOL-370 125ML BTL INJ ONE (12:03)
[2021-08-15] MEDS ORDERED: ATROPINE SULFATE 0.1 MG/ML 10ML SYRINGE IV PRN (12:10)
[2021-08-15] MEDS ORDERED: NITROGLYCERIN SL TABS 0.4 MG TAB SUBLINGUAL PRN (12:10)
[2021-08-15] MEDS ORDERED: MAG HYDROX/AL HYDROX/SIMETH 30 ML CUP PO PRN (12:10)
[2021-08-15] MEDS ORDERED: RX INFO: IV CONTRAST WAS GIVEN 1 EACH MISC MISCELLANE PRN (12:10)
[2021-08-15] MEDS ORDERED: SODIUM CHLORIDE 0.9% 1,000 ML in EMPTY BAG 1 BAG IV SCH (12:15)
--- NOTE | 2021-08-15 12:18 | P.PCN ---
Date of Procedure: 08/15/21 Operative Findings: CARDIAC CATHETERIZATION AND PERCUTANEOUS CORONARY INTERVENTION PERFORMING PHYSICIAN: Pancho House MD, [facility] PROCEDURE PERFORMED: 1. Selective right and left coronary angiogram 2. Left heart catheterization 3. Successful stenting of mid RCA using 3.5 x 38 mm Xience CHRISTINE which with an excellent angiographic results 4. Successful stenting of the distal RCA using 3.0 x 12 mm Xience CHRISTINE with an excellent angiographic results 5. Aspiration thrombectomy from the right coronary artery INDICATION: Acute inferior ST patient myocardial infarction COMPLICATION: None APPROACH: Right radial artery LEVEL OF SEDATION: Moderate with the sedation time off 32 minutes PROCEDURE DESCRIPTION: After obtaining an informed consent the patient was brought to the cardiac lab tester. The right radial artery was cannulated using micropuncture technique, the micropuncture wire passed easily then I placed a 6-Korean sheath at the right radial artery. After that I give the patient 2 mg of verapamil intra-arterial. We get him also 4000 units of heparin IV. Selective right and left coronary angiogram performed using JR4 and JL 3.5 catheters. Left heart catheterization was performed using the JR4 which across aortic valve then I did pull back across the valve. After that I did intervene on the right coronary artery. The procedure was completed without any complication SELECTIVE CORONARY ANGIOGRAM: The right coronary artery: To large caliber vessel and dominant vessel. The RCA is occluded in the midportion. It has a large thrombus burden. Left main: Is angiographically normal. Bifurcates into LCx and LAD The left circumflex: Is a large caliber vessel and nondominant vessel. The left circumflex proximally has mild disease only. Gives rises into a small OM branch which meng eared to be angiographically normal. Distally the left circumflex also has mild disease only and gives rises into the second OM branch which appeared to be angiographically normal The left anterior descending artery: Is a large caliber vessel. The LAD has mild disease in the proximal portion gives rises into a large diagonal branch which seems to be angiographically normal. HEMODYNAMICS: The LVEDP was 18 mmHg without significant gradient across aortic valve PCI OF THE RCA: Anticoagulation was initiated using heparin with continuous ACT monitoring throughout the case. Subsequently I did engage the RCA using JR4 guiding catheter. I did wire the RCA using a run-through wire. Because of the large thrombus for that I did perform aspiration thrombectomy with the extraction of a very small amount of clots. Subsequently I did balloon angioplasty using 3 5 x 15 mm balloon before I deployed 3.5 x 38 mm stent where the stent was positioned under fluoroscopy guidance and deployed under 14 keyanna. The following angiogram showed that the stented segment looks good but distally the RCA has another lesion appears to be flow-limiting In the range of 70-80%. The lesion is focal. I deployed 3.0 x 12 mm stent where the stent again was positioned under fluoroscopy guidance and deployed under 12 keyanna for 20 seconds. Final angiogram showed excellent angiographic results and the procedure was completed without any complication CONCLUSION: #[address] patient myocardial infarction #2 Acute total occlusion of the RCA. I performed successful stenting of the RCA in the mid and distal portion #3 Mild disease involving the left coronary system #4 Normal left sided filling pressure POSTPROCEDURE MANAGEMENT: #1 dual antiplatelet therapy for 12 month #2 aggressive cholesterol control #3 follow-up with the patient
[2021-08-15 14:51] VITALS: BMI 31.9
[2021-08-15] MEDS: CYCLOBENZAPRINE 10 MG TAB PO SCH (20:02)
[2021-08-15] MEDS: ZOLPIDEM 5 MG TAB PO PRN (20:02)
[2021-08-15] MEDS: METOPROLOL TARTRATE 25 MG TAB PO SCH (20:02)
[2021-08-15] MEDS: ATORVASTATIN 80 MG TAB PO SCH (20:02)
[2021-08-15] MEDS: FLUTICASONE 50MCG/SPRAY NASAL 16GM EA NOSTRIL SCH (20:03)
[2021-08-15] MEDS: DICYCLOMINE 20 MG TAB PO SCH (20:03)
[2021-08-15] MEDS: SYMBICORT 80-4.5 MCG INHALER INHALATION SCH (20:11)
[2021-08-15] MEDS: IPRATROPIUM 0.5 MG/2.5 ML NEBU INHALATION SCH (20:11)
--- NOTE | 2021-08-15 20:26 | CA ---
Transthoracic Echo Report Name: Doug Sun Age: 61 Gender: M : 1960 Exam Date: 08/15/2021 13:12 Exam Location: [place] [facility] Ht (in): 68 Wt (lb): 210 Ordering Physician: Pancho House MD ([id number]) Attending/Referring Phys: Transformer Assembler Terrie Viera RDCS Procedure CPT: Indications: stemi Cardiac Hx: Hx of smoking and family hx of heart disease Technical Quality: Fair Contrast 1: Total Dose (mL): Contrast 2: Total Dose (mL): MEASUREMENTS (Male / Female) Normal Values 2D ECHO LA Volume 38.2 cm??? 18 - 58 / 22 - 52 cm??? M-MODE Aortic Root Diameter MM 3.7 cm LA Systolic Diameter MM 2.9 cm LA Ao Ratio MM 0.8 AV Cusp Separation MM 2.3 cm DOPPLER AV Peak Velocity 108.5 cm/s AV Peak Gradient 4.7 mmHg MV Area PHT 7.4 cm??? MR Peak Velocity 97.3 cm/s MR Peak Gradient 3.8 mmHg Mitral E Point Velocity 76.0 cm/s Mitral A Point Velocity 56.9 cm/s Mitral E to A Ratio 1.3 MV Deceleration Time 102.3 ms MV E' Velocity 4.9 cm/s Mitral E to MV E' Ratio 15.6 TR Peak Velocity 97.6 cm/s TR Peak Gradient 3.8 mmHg Right Ventricular Systolic Press 8.7 mmHg FINDINGS Left Ventricle Left ventricular ejection fraction is estimated at 35-40 %. Left ventricular cavity size normal. Mid to basal inferior septal and mid to basal inferior is hypokinetic.grade 1 diastolic dysfunction. Right Ventricle The right ventricle is normal in size and function. Right Atrium The right atrium is normal in size. Left Atrium The left atrium is normal in size. Mitral Valve Structurally normal mitral valve without significant stenosis or prolapse. There is mild mitral regurgitation. Aortic Valve Structurally normal aortic valve without significant sclerosis or stenosis. There is no aortic regurgitation. Tricuspid Valve Structurally normal tricuspid valve without significant stenosis. Pulmonary artery systolic pressure is normal. Trace tricuspid regurgitation. Pulmonic Valve Structurally normal pulmonic valve without significant stenosis. There is no pulmonic regurgitation. Pericardium Normal pericardium without effusion. Aorta Normal aortic root dimension. CONCLUSIONS Reduced LV systolic function ejection fraction 35-40% with inferior hypokinesis Previewed by: Dr. Dakotah Butler MD (Electronically Signed) Final Date: 15 Aug 2021 20:25
[2021-08-16] MEDS: IPRATROPIUM-ALBUTEROL 3 ML NEB INHALATION PRN ×3 (07:12→19:13)
[2021-08-16] MEDS: IPRATROPIUM 0.5 MG/2.5 ML NEBU INHALATION SCH ×4 (07:12→19:18)
--- NOTE | 2021-08-16 07:13 | P.PN ---
Subjective Progress Note Date: 08/16/21 Principal diagnosis: Acute coronary syndrome The patient is a 61-year-old gentleman with hypertension and dyslipidemia and smoking and significant family history of CAD who presented to the hospital with a chest discomfort and was diagnosed with acute inferior ST patient myocardial infarction. He underwent an emergent heart catheterization and was found to have an occluded RCA which was opened and stented in the mid and distal portion. The left coronary system has mild disease only. He was seen this morning. He has no chest pain but he has been experiencing low back pain which is chronic. He has been maintaining normal sinus mechanism with 1 episode overnight of atrial tachycardia of short duration. His vitals showed the margin a low blood pressure. Currently he is on dual antiplatelet therapy along with high intensity statin along with beta monique. The echo reveals severe cardiomyopathy with EF between 35-40%. With that being said I'm going to squeeze a small dose of MIGUEL inhibitor with lisinopril at 2.5 mg by mouth daily. The patient can be transferred to the [facility]. for possible discharge in the next 24-48 hours and preferably 48 hours was limited echo to assess for any improvement in the ejection fraction before the patient go home. Objective - Vital Signs Vital signs: Vital Signs Temp 97.8 F 08/16/21 04:00 Pulse 92 08/16/21 07:00 Resp 27 H 08/16/21 07:00 BP 96/58 08/16/21 07:00 Pulse Ox 93 L 08/16/21 07:00 Intake & Output 08/15/21 08/16/21 08/16/21 18:59 06:59 18:59 Intake Total 1145 150 Output Total 1600 850 400 Balance -455 -700 -400 Weight 95.7 kg 96.9 kg Intake: IV 1025 150 Sodium Chloride 0.9% 1, 525 150 000 ml In Empty Bag 1 bag @ 75 mls/hr IV .[id number] [facility] Rx#:[id number] Oral 120 Output: Urine 1600 850 400 Other: Voiding Method Urinal Urinal # Voids 1 - Constitutional General appearance: Present: no acute distress - Respiratory Respiratory: bilateral: CTA - Cardiovascular Rhythm: regular Heart sounds: normal: S1, S2 - Labs CBC & Chem 7: 08/15/21 11:14 08/15/21 11:14 Labs: Abnormal Lab Results - Last 24 Hours (Table) 08/15/21 08/15/21 08/15/21 Range/Units 11:14 11:14 11:14 APTT 33.3 H (22.0-30.0) sec Sodium 134 L (137-145) mmol/L Glucose 109 H (74-99) mg/dL Troponin I 0.192 H* (0.000-0.034) ng/mL Assessment and Plan Assessment: Assessment #[address] elevation myocardial infarction #2 status post PCI of the mid and distal RCA #3 ischemic cardiomyopathy #4 history of smoking #5 hypertension #6 dyslipidemia Plan #1 dual antiplatelet therapy #2 high intensity statin #3 continue beta monique and try to up titrate the dose if the pressure allowed #4 add a small dose of MIGUEL inhibitor with lisinopril #5 monitor for arrhythmia #6 limited echo in the next 48 hours #7 the patient can be transferred to the floor #8 follow-up with the patient
[2021-08-16 07:31] LABS: Basophils # (A) 0.1 k/uL (0-0.2); Basophils % (A) 1 %; Eosinophils # (A) 0.3 k/uL (0-0.7); Eosinophils % (A) 3 %; HCT 49.3 % (39.0-53.0); Lymphocytes # (A) 2.1 k/uL (1.0-4.8); Lymphocytes % (A) 22 %; MCH 32.3 pg (25.0-35.0); MCHC 34.6 g/dL (31.0-37.0); MCV 93.3 fL (80.0-100.0); Mean Platelet Volume 6.9; Monocytes # (A) 0.6 k/uL (0-1.0); Monocytes % (A) 7 %; Neutrophils % (A) 65 %; Platelet Count 271 k/uL (150-450); RBC 5.28 m/uL (4.30-5.90); RDW 13.5 % (11.5-15.5); WBC 9.2 k/uL (3.8-10.6)
[2021-08-16 07:43] LABS: African American GFR (CKD) >90 (>60 ml/min/1.73 sqM); Anion Gap 10 mmol/L; Blood Urea Nitrogen 11 mg/dL (9-20); Calcium 9.3 mg/dL (8.4-10.2); Carbon Dioxide 22 mmol/L (22-30); Chloride 106 mmol/L (98-107); Glucose 100 mg/dL (74-99); Non-African American GFR(CKD) >90 (>60 ml/min/1.73 sqM); Potassium 4.7 mmol/L (3.5-5.1); Sodium 138 mmol/L (137-145)
[2021-08-16] MEDS ORDERED: NON FORMULARY DRUG (Fluticasone/Umeclidin/Vilanter [Trelegy Ellipta 100-62.5-25] 1 EACH Bl INHALATION SCH (08:00)
[2021-08-16] MEDS: HYDROcodone/APAP 5-325MG 1 EACH TAB PO PRN ×3 (08:01→20:13)
[2021-08-16] MEDS: CYCLOBENZAPRINE 10 MG TAB PO SCH ×2 (08:32→20:13)
[2021-08-16] MEDS: PANTOPRAZOLE 40 MG TABLET PO SCH (08:32)
[2021-08-16] MEDS: DICYCLOMINE 20 MG TAB PO SCH ×3 (08:32→23:08)
[2021-08-16] MEDS: FLUTICASONE 50MCG/SPRAY NASAL 16GM EA NOSTRIL SCH ×2 (08:32→20:14)
[2021-08-16] MEDS: CLOPIDOGREL 75 MG TAB PO SCH (08:32)
[2021-08-16] MEDS: METOPROLOL TARTRATE 25 MG TAB PO SCH ×2 (08:32→20:14)
[2021-08-16] MEDS: MONTELUKAST 10 MG TAB PO SCH (08:32)
[2021-08-16] MEDS: ASPIRIN 81 MG PO SCH (08:32)
[2021-08-16] MEDS: SYMBICORT 80-4.5 MCG INHALER INHALATION SCH ×2 (11:11→19:13)
[2021-08-16] MEDS ORDERED: SENNOSIDES 8.6 MG TAB PO PRN (18:15)
[2021-08-16] MEDS: ATORVASTATIN 80 MG TAB PO SCH (20:13)
[2021-08-16] MEDS: ZOLPIDEM 5 MG TAB PO PRN (23:08)
--- NOTE | 2021-08-17 00:26 | P.HPIM ---
History of Present Illness H&P Date: 08/16/21 Chief Complaint: chest pain Doug Sun is a 61 yo M with PMH significant for CAD, tobacco use, hypertension who presented to the ED complaining of chest pain since last night. He started to have chest pressure last night located in the center of his chest, his chest discomfort continued and had difficulty sleeping. This morning he had continued chest pressure with radiation across his chest, back and shoulders. He called EMS. EKG revealed initial ST elevation, he was transferred to [facility] and taken to the chemical lab supervisor. Pt with two stents deployed and subseqent echo today showing LVEF 40%. He is feeling much better today and denies any further chest pain or shortness of breath. Review of Systems All systems: negative Constitutional: Reports malaise, Denies chills, Denies fever Eyes: denies blurred vision, denies pain Ears, nose, mouth and throat: Denies headache, Denies sore throat Cardiovascular: Reports chest pain, Reports shortness of breath Respiratory: Denies cough Gastrointestinal: Denies abdominal pain, Denies diarrhea, Denies nausea, Denies vomiting Musculoskeletal: Denies myalgias Integumentary: Denies pruritus, Denies rash Neurological: Denies numbness, Denies weakness Psychiatric: Denies anxiety, Denies depression Endocrine: Denies fatigue, Denies weight change Past Medical History Past Medical History: Asthma, Blood Disorder, Cancer, COPD, Pneumonia Additional Past Medical History / Comment(s): Chronic cervical and back pain, herniated discs/DDD, bronchitis, ulcerative colitis, lower GI bleed, hemachromatosis, R bicep tear, several concussions, skin cancer removed from face. History of Any Multi-Drug Resistant Organisms: None Reported Past Surgical History: Heart Catheterization, Hernia Repair, Orthopedic Surgery, Tonsillectomy Additional Past Surgical History / Comment(s): Bilateral inguinal hernia repairs, R spermatic cord clipped, 14 surgeries to remove rejected hernia mesh, R knee arthroscopies x 3, bilateral heel spurs removed x2, R elbow ORIF/later failed attempt to remove screw, bilateral blepharoplasties, colonoscopies, EGD, sigmoidoscopy. Past Anesthesia/Blood Transfusion Reactions: No Reported Reaction, Family History of Problems w/ Anesthesia Additional Past Anesthesia/Blood Transfusion Reaction / Comment(s): dad and brother had problems coming out of anesthesia Past Psychological History: Anxiety, Depression - Past Family History Sister(s) Family Medical History: Cancer Additional Family Medical History / Comment(s): #1 sister pasted away with lung CA,#2 sister breast CA Mother Family Medical History: AFIB, Diabetes Mellitus Additional Family Medical History / Comment(s): Mother is living. Father Family Medical History: Diabetes Mellitus, Vascular Disorder Additional Family Medical History / Comment(s): Father from cardiomyopathy. Medications and Allergies Home Medications Medication Instructions Recorded Confirmed Type Fluticasone/Umeclidin/Vilanter 1 puff INHALATION RT-DAILY 06/13/19 08/15/21 History [Trelegy Ellipta 100-62.5-25] Adalimumab [Humira(Cf) Pen] 40 mg SQ Q14D 08/15/21 08/15/21 History Cyclobenzaprine [Flexeril] 10 mg PO BID 08/15/21 08/15/21 History Diclofenac Potassium [Cataflam] 50 mg PO BID 08/15/21 08/15/21 History Dicyclomine [Bentyl] 20 mg PO TID 08/15/21 08/15/21 History Famotidine [Pepcid] 40 mg PO DAILY 08/15/21 08/15/21 History Fluticasone Nasal [place] [Flonase 1 spray EA NOSTRIL BID 08/15/21 08/15/21 History Nasal [place]] Montelukast [Singulair] 10 mg PO DAILY 08/15/21 08/15/21 History Nystatin 100,000 Unit/ml Susp 4 ml PO Q6H 08/15/21 08/15/21 History [Mycostatin Oral Susp] Pantoprazole [Protonix] 40 mg PO DAILY 08/15/21 08/15/21 History lisinopriL [Zestril] 5 mg PO DAILY 08/15/21 08/15/21 History Allergies Allergy/AdvReac Type Severity Reaction Status Date / Time varenicline [From Chantix] AdvReac suicidal Verified 06/13/19 12:31 thoughts Physical Exam Vitals: Vital Signs Temp Pulse Pulse Resp BP BP Pulse Ox 08/16/21 23:33 97.6 F 81 18 129/87 96 08/16/21 20:00 97.7 F 82 18 143/86 99 08/16/21 19:29 78 08/16/21 19:14 80 08/16/21 16:00 93 16 131/89 98 08/16/21 15:49 85 08/16/21 15:37 82 08/16/21 12:00 97.5 F L 86 22 117/80 96 08/16/21 08:00 97.6 F 86 21 132/89 95 08/16/21 07:24 92 08/16/21 07:12 89 08/16/21 07:00 92 27 H 96/58 93 L 08/16/21 06:00 80 21 111/73 94 L 08/16/21 05:00 91 11 L 133/105 96 08/16/21 04:00 97.8 F 111 H 35 H 125/82 95 08/16/21 03:00 82 22 125/82 96 08/16/21 02:00 81 19 104/66 94 L 08/16/21 01:00 80 17 115/88 94 L Intake and Output 08/16/21 08/16/21 08/17/21 14:59 22:59 06:59 Intake Total 400 600 10 Output Total 400 1400 Balance 0 -800 10 Intake: IV 10 0.9 10 Oral 400 600 Output: Urine 400 1400 Other: Voiding Method Urinal Toilet Urinal # Voids 1 General: well nourished, well developed, NAD. Vitals reviewed Eyes: PERRL, EOMI, conjunctiva normal HENT: normocephalic, mucus membranes moist Neck: supple, no JVD Lungs: normal respiratory effort, no wheezes or rales CV: Regular rate and rhythm, no murmur. Peripheral pulses 2+ Abdomen: soft, nondistended, no organomegaly Lymph: no cervical or axillary LAD Skin: warm and dry. Neuro: A&Ox3, normal mood and affect Results CBC & Chem 7: 08/16/21 07:07 08/16/21 07:07 Labs: Abnormal Lab Results - Last 24 Hours (Table) 08/16/21 Range/Units 07:07 Glucose 100 H (74-99) mg/dL Thrombosis Risk Factor Assmnt - Choose All That Apply Any of the Below Risk Factors Present?: Yes Each Factor Represents 1 point: Abnormal pulmonary function (COPD), Acute LA, Age 41-60 years Other Risk Factors: No Other congenital or acquired thrombophilia - If yes, enter type in comment: No Thrombosis Risk Factor Assessment Total Risk Factor Score: 3 Thrombosis Risk Factor Assessment Level: Moderate Risk Assessment and Plan Plan: 1. STEMI. Acute systolic CHF. Pt s/p PCI. Continue with ASA, lipitor, plavix. Cardiology following. Start lisinopril, metoprolol 2. COPD. continue with breathing treatments as needed 3. UC. Continue home bentyl 4. Chronic neck pain. Continue flexeril
[2021-08-17] MEDS: HYDROcodone/APAP 5-325MG 1 EACH TAB PO PRN ×3 (01:55→12:25)
[2021-08-17 04:07] VITALS: TEMP 97.7
[2021-08-17] MEDS: SYMBICORT 80-4.5 MCG INHALER INHALATION SCH (08:01)
[2021-08-17] MEDS: IPRATROPIUM-ALBUTEROL 3 ML NEB INHALATION PRN (08:01)
[2021-08-17] MEDS: IPRATROPIUM 0.5 MG/2.5 ML NEBU INHALATION SCH ×2 (08:19→11:05)
--- NOTE | 2021-08-17 09:16 | P.PN ---
Subjective Progress Note Date: 08/17/21 Principal diagnosis: Acute coronary syndrome The patient is a 61-year-old gentleman with hypertension and dyslipidemia and smoking and significant family history of CAD who presented to the hospital with a chest discomfort and was diagnosed with acute inferior ST patient myocardial infarction. He underwent an emergent heart catheterization and was found to have an occluded RCA which was opened and stented in the mid and distal portion. The left coronary system has mild disease only. He underwent an echo which revealed an EF between 35-40%. The patient was seen this morning. He remains asymptomatic. He hemodynamically stable. He would like to go home. He is on dual antiplatelet therapy along with high intensity statin along with anti-ischemic medication. Giving his EF going to add Aldactone to the current medical regimen. He needs to be seen in the office in about one to 2 weeks and we'll continue monitor the kidney function and electrolytes especially with potassium with adding Aldactone. Objective - Vital Signs Vital signs: Vital Signs Temp 97.7 F 08/17/21 04:00 Pulse 77 08/17/21 08:14 Resp 18 08/17/21 08:14 BP 112/76 08/17/21 04:00 Pulse Ox 99 08/17/21 08:01 Intake & Output 08/16/21 08/17/21 08/17/21 18:59 06:59 18:59 Intake Total 1000 10 Output Total 1800 Balance -800 10 Intake: IV 10 0.9 10 Oral 1000 Output: Urine 1800 Other: Voiding Method Urinal Toilet Urinal # Voids 1 - Constitutional General appearance: Present: no acute distress - Respiratory Respiratory: bilateral: CTA - Cardiovascular Rhythm: regular Heart sounds: normal: S1, S2 - Labs CBC & Chem 7: 08/16/21 07:07 08/16/21 07:07 Assessment and Plan Assessment: Assessment #[address] elevation myocardial infarction #2 status post PCI of the mid and distal RCA #3 ischemic cardiomyopathy #4 history of smoking #5 hypertension #6 dyslipidemia Plan #1 continue the current medical regimen #2 add Aldactone to the current medical regimen #3 the patient would like to go home #4 follow-up with the patient as an out patient
[2021-08-17] MEDS: CLOPIDOGREL 75 MG TAB PO SCH (09:33)
[2021-08-17] MEDS: DICYCLOMINE 20 MG TAB PO SCH (09:33)
[2021-08-17] MEDS: METOPROLOL TARTRATE 25 MG TAB PO SCH (09:33)
[2021-08-17] MEDS: MONTELUKAST 10 MG TAB PO SCH (09:33)
[2021-08-17] MEDS: CYCLOBENZAPRINE 10 MG TAB PO SCH (09:33)
[2021-08-17] MEDS: PANTOPRAZOLE 40 MG TABLET PO SCH (09:34)
[2021-08-17] MEDS: ASPIRIN 81 MG PO SCH (09:34)
[2021-08-17] MEDS: FLUTICASONE 50MCG/SPRAY NASAL 16GM EA NOSTRIL SCH (09:34)
[2021-08-17 14:02] VITALS: BP 123/73; PULSE 78; RESP 16
--- NOTE | 2021-08-17 20:12 | DS ---
DISCHARGE SUMMARY FINAL DIAGNOSIS: 1. Acute inferior XA-lwdzcyv-xecewzyuw myocardial infarction. 2. Status post percutaneous transluminal coronary angioplasty of the mid and distal right coronary artery. 3. Ischemic cardiomyopathy. 4. Hypertension. DISCHARGE DISPOSITION: The patient will be discharged in stable condition with guarded prognosis. HISTORY OF PRESENT ILLNESS: This 61-year-old gentleman with a past medical history of multiple medical problems, being followed by Dr. Conrad in the outpatient setting, was admitted with acute inferior wall myocardial infarction. Patient had a cardiac catheterization and stenting by Cardiology. Patient tolerated the procedure well. Cardiology cleared the patient for discharge. One exam, vitals are stable. CARDIOVASCULAR: S1, S2 muffled. ABDOMEN: Soft. NERVOUS SYSTEM: No focal deficit. The patient will be discharged home with the following discharge advice and medications: 1. Please refer to my discharge reconciliation sheet for list of medications. 2. The new medications include aspirin, Lipitor, Plavix, Aldactone, Lopressor and nitroglycerin. 3. Recommend close followup with primary physician and Cardiology. 4. Please refer to cardiology recommendations as well. MMODL / IJN: [id number] /
[2021-08-18] MEDS ORDERED: SPIRONOLACTONE 25 MG TAB PO SCH (09:00)
== END 2021-08-17 15:02 | disposition home or self-care (01) | DRG 246 ==
LOC: EC 11:01 → 2SICU 11:13 → 3SCARD 08-16 16:00
PROVIDERS: ADMIT Family Medicine; ATTEND Family Medicine
PROC: 02C03ZZ Extirpation of Matter from Coronary Artery, One Artery, Percutaneous Approach (ICD-10-PCS; principal; 2021-08-15 11:08)
PROC: B2111ZZ Fluoroscopy of Multiple Coronary Arteries using Low Osmolar Contrast (ICD-10-PCS; principal; 2021-08-15 11:08)
PROC: 027135Z Dilation of Coronary Artery, Two Arteries with Two Drug-eluting Intraluminal Devices, Percutaneous Approach (ICD-10-PCS; principal; 2021-08-15 11:08)
PROC: 4A023N7 Measurement of Cardiac Sampling and Pressure, Left Heart, Percutaneous Approach (ICD-10-PCS; principal; 2021-08-15 11:08)
DX: I21.19 ST elevation (STEMI) myocardial infarction involving other coronary artery of inferior wall (principal); I50.21 Acute systolic (congestive) heart failure; K51.90 Ulcerative colitis, unspecified, without complications; I47.1 Supraventricular tachycardia; I11.0 Hypertensive heart disease with heart failure; J44.9 Chronic obstructive pulmonary disease, unspecified; E78.00 Pure hypercholesterolemia, unspecified; E78.5 Hyperlipidemia, unspecified; I25.10 Atherosclerotic heart disease of native coronary artery without angina pectoris; I25.5 Ischemic cardiomyopathy; K44.9 Diaphragmatic hernia without obstruction or gangrene; G89.29 Other chronic pain; M54.50 Low back pain, unspecified; M50.30 Other cervical disc degeneration, unspecified cervical region; F17.210 Nicotine dependence, cigarettes, uncomplicated; Z71.6 Tobacco abuse counseling; Z79.51 Long term (current) use of inhaled steroids; Z79.899 Other long term (current) drug therapy; Z87.01 Personal history of pneumonia (recurrent); Z85.828 Personal history of other malignant neoplasm of skin; Z90.89 Acquired absence of other organs; Z87.19 Personal history of other diseases of the digestive system; Z87.39 Personal history of other diseases of the musculoskeletal system and connective tissue; Z87.81 Personal history of (healed) traumatic fracture; Z86.69 Personal history of other diseases of the nervous system and sense organs; Z86.59 Personal history of other mental and behavioral disorders; Z98.890 Other specified postprocedural states; Z88.8 Allergy status to other drugs, medicaments and biological substances; Z82.49 Family history of ischemic heart disease and other diseases of the circulatory system; Z83.3 Family history of diabetes mellitus; Z82.5 Family history of asthma and other chronic lower respiratory diseases; Z81.2 Family history of tobacco abuse and dependence; Z80.3 Family history of malignant neoplasm of breast; Z80.1 Family history of malignant neoplasm of trachea, bronchus and lung
CPT/HCPCS: 80048; 80053; 83735; 84484; 85025; 85610; 85730; 93005; 93306; 93458; 94640; 94760; 96374; 99291

== ENCOUNTER 2022-02-07 18:19 | Emergency (ER) | payer MEDICARE, OTHER ==
[2022-02-07 20:01] VITALS: TEMP 97.7
--- NOTE | 2022-02-07 20:47 | XR ---
EXAMINATION TYPE: XR tibia fibula LT DATE OF EXAM: 02/07/2022 COMPARISON: NONE HISTORY: Pain and swelling TECHNIQUE: 2 view FINDINGS: Tibia and fibula appear intact. I see no fracture nor dislocation. Knee joint and ankle marquez nt appear intact. IMPRESSION: Negative left tibia and fibula exam.
--- NOTE | 2022-02-07 20:48 | XR ---
EXAMINATION TYPE: XR foot complete LT DATE OF EXAM: 02/07/2022 COMPARISON: NONE HISTORY: Pain TECHNIQUE: 3 views FINDINGS: Metatarsals are intact. The toes appear intact. I see no fracture nor dislocation. There is plantar and Achilles calcaneal spur formation. IMPRESSION: No acute abnormality of the left foot.
--- NOTE | 2022-02-07 20:48 | XR ---
EXAMINATION TYPE: XR ankle limited LT DATE OF EXAM: 02/07/2022 COMPARISON: NONE HISTORY: Pain and swelling TECHNIQUE: 2 views FINDINGS: Ankle mortise is anatomic. There is plantar and Achilles calcaneal spurring. Joint spaces a re fairly normal. There is minimal soft tissue swelling over the medial malleolus. IMPRESSION: Calcaneal spurring. No fracture.
[2022-02-07] MEDS ORDERED: HYDROmorphone 1 MG/ML 1 ML SYRINGE IM STA (22:15)
[2022-02-07] MEDS ORDERED: IBUPROFEN 800 MG TAB PO STA (22:15)
[2022-02-07] MEDS ORDERED: IBUPROFEN 600 MG STARTER PACK 4 TAB BTL PO STA (22:15)
[2022-02-07] MEDS ORDERED: dexAMETHasone 2 MG TAB PO STA (22:15)
[2022-02-07] MEDS ORDERED: ACET/COD 300 MG/30 MG STARTER PACK 6 TAB BTL PO STA (22:15)
--- NOTE | 2022-02-07 22:19 | ED ---
Recheck HPI - General Chief Complaint: Extremity Injury, Lower Stated Complaint: lt leg injury Time Seen by Provider: 02/07/22 21:52 Source: patient, RN notes reviewed, old records reviewed Mode of arrival: ambulatory Limitations: physical limitation - History of Present Illness Initial Comments: This is a 61-year-old male to the emergency department for evaluation. Patient significant history of chronic arthritis back pain leg pain hip pain. Patient will follow up in the same time he ended up integral in the leash. This caused bruising to his left ankle. Patient states pain is just been increasing for the last 2 days worse now unbearable MD Complaint: medication refill request (Increased pain) -: days(s) Returns Today for: persistent/worsening pain related to initial visit Symptoms Since Prior Visit: worsening pain Associated Symptoms: none Treatments Prior to Arrival: Given Pain Meds on - Related Data Home Medications Medication Instructions Recorded Confirmed Fluticasone/Umeclidin/Vilanter 1 puff INHALATION RT-DAILY 06/13/19 08/15/21 [Ashlee Ellipta 100-62.5-25] Adalimumab [Humira(Cf) Pen] 40 mg SQ Q14D 08/15/21 08/15/21 Cyclobenzaprine [Flexeril] 10 mg PO BID 08/15/21 08/15/21 Dicyclomine [Bentyl] 20 mg PO TID 08/15/21 08/15/21 Famotidine [Pepcid] 40 mg PO DAILY 08/15/21 08/15/21 Fluticasone Nasal [place] [Flonase 1 spray EA NOSTRIL BID 08/15/21 08/15/21 Nasal [place]] Montelukast [Singulair] 10 mg PO DAILY 08/15/21 08/15/21 Nystatin 100,000 Unit/ml Susp 4 ml PO Q6H 08/15/21 08/15/21 [Mycostatin Oral Susp] Pantoprazole [Protonix] 40 mg PO DAILY 08/15/21 08/15/21 lisinopriL [Zestril] 5 mg PO DAILY 08/15/21 08/15/21 Previous Rx's Medication Instructions Recorded Aspirin 81 mg PO DAILY #30 08/17/21 Atorvastatin [Lipitor] 80 mg PO HS #30 tab 08/17/21 Clopidogrel [Plavix] 75 mg PO DAILY #30 tab 08/17/21 HYDROcodone/APAP 5-325MG [Arpin 1 each PO Q4HR PRN #10 tab 08/17/21 5-325] Ipratropium Nebulized [Atrovent 0.5 mg INHALATION RT-QID #129 ml 08/17/21 Nebulized 0.2 MG/ML] Metoprolol Tartrate [Lopressor] 25 mg PO BID #60 tab 08/17/21 Nitroglycerin Sl Tabs [Nitrostat] 0.4 mg SUBLINGUAL Q5M PRN #20 tab 08/17/21 Spironolactone [Aldactone] 25 mg PO DAILY #30 tab 08/17/21 Allergies Allergy/AdvReac Type Severity Reaction Status Date / Time varenicline [From Chantix] AdvReac suicidal Verified 02/07/22 19:56 thoughts Review of Systems ROS Statement: Those systems with pertinent positive or pertinent negative responses have been documented in the HPI. ROS Other: All systems not noted in ROS Statement are negative. Past Medical History Past Medical History: Asthma, Blood Disorder, Cancer, COPD, Pneumonia Additional Past Medical History / Comment(s): Chronic cervical and back pain, herniated discs/DDD, bronchitis, ulcerative colitis, lower GI bleed, hemachromatosis, R bicep tear, several concussions, skin cancer removed from face. History of Any Multi-Drug Resistant Organisms: None Reported Past Surgical History: Heart Catheterization, Hernia Repair, Orthopedic Surgery, Tonsillectomy Additional Past Surgical History / Comment(s): Bilateral inguinal hernia repairs, R spermatic cord clipped, 14 surgeries to remove rejected hernia mesh, R knee arthroscopies x 3, bilateral heel spurs removed x2, R elbow ORIF/later failed attempt to remove screw, bilateral blepharoplasties, colonoscopies, EGD, sigmoidoscopy. Past Anesthesia/Blood Transfusion Reactions: No Reported Reaction, Family History of Problems w/ Anesthesia Additional Past Anesthesia/Blood Transfusion Reaction / Comment(s): dad and brother had problems coming out of anesthesia Past Psychological History: Anxiety, Depression Smoking Status: Current every day smoker, Heavy tobacco smoker Past Alcohol Use History: None Reported Past Drug Use History: Marijuana - Past Family History Sister(s) Family Medical History: Cancer Additional Family Medical History / Comment(s): #1 sister pasted away with lung CA,#2 sister breast CA Mother Family Medical History: AFIB, Diabetes Mellitus Additional Family Medical History / Comment(s): Mother is living. Father Family Medical History: Diabetes Mellitus, Vascular Disorder Additional Family Medical History / Comment(s): Father from cardiomyopathy. General Exam Limitations: physical limitation General appearance: alert, in no apparent distress Head exam: Present: atraumatic, normocephalic, normal inspection Eye exam: Present: normal appearance, PERRL, EOMI. Absent: scleral icterus, conjunctival injection, periorbital swelling ENT exam: Present: normal exam, mucous membranes moist Neck exam: Present: normal inspection. Absent: tenderness, meningismus, lymphadenopathy Respiratory exam: Present: normal lung sounds bilaterally. Absent: respiratory distress, wheezes, rales, rhonchi, stridor Cardiovascular Exam: Present: regular rate, normal rhythm, normal heart sounds. Absent: systolic murmur, diastolic murmur, rubs, gallop, clicks GI/Abdominal exam: Present: soft, normal bowel sounds. Absent: distended, tenderness, guarding, rebound, rigid Extremities exam: Present: normal inspection, tenderness (Tenderness to left ankle), normal capillary refill, other (Multiple areas of bruising to the lower left leg ankle and foot). Absent: full ROM (Tenderness to left ankle), pedal edema, joint swelling, calf tenderness Back exam: Present: normal inspection Neurological exam: Present: alert, oriented X3, CN II-XII intact Psychiatric exam: Present: normal affect, normal mood Skin exam: Present: warm, dry, intact, normal color. Absent: rash Course Vital Signs 02/07/22 19:56 Temperature 97.7 F Pulse Rate 83 Respiratory 18 Rate Blood Pressure 135/79 O2 Sat by Pulse 98 Oximetry - Reevaluation(s) Reevaluation #1: 02/07/22 22:18 Medical records reviewed Reevaluation #2: 02/07/22 22:18 Patient's pain is resolved Reevaluation #3: 02/07/22 22:18 Patient informed results questions are answered Medical Decision Making - Medical Decision Making 7 female Marco with multiple complaints of acute on chronic pain as well as new pain left ankle occurred while walking his dog and injury. Patient has pain control currently and can be discharged home - Radiology Data Radiology results: report reviewed (X-ray left leg negative for traumatic injury), image reviewed Disposition Clinical Impression: Generalized pain, Chronic pain, Osteoarthritis, Contusion of left ankle Disposition: HOME SELF-CARE Condition: Good Instructions (If sedation given, give patient instructions): Foot Contusion (ED) Is patient prescribed a controlled substance at d/c from ED?: No Referrals: Doug Conrad MD [Primary Care Provider] - 1-2 days Time of Disposition: 22:20
[2022-02-07 22:37] VITALS: BP 140/68; PULSE 78; RESP 20
== END 2022-02-07 22:42 | disposition home or self-care (01) ==
LOC: EC 18:19
DX: S90.02XA Contusion of left ankle, initial encounter (principal); M19.90 Unspecified osteoarthritis, unspecified site; J45.909 Unspecified asthma, uncomplicated; J44.9 Chronic obstructive pulmonary disease, unspecified; F41.9 Anxiety disorder, unspecified; F32.A Depression, unspecified; F12.90 Cannabis use, unspecified, uncomplicated; F17.210 Nicotine dependence, cigarettes, uncomplicated; Z79.899 Other long term (current) drug therapy; X58.XXXA Exposure to other specified factors, initial encounter; Y93.K1 Activity, walking an animal
CPT/HCPCS: 73590; 73600; 73630; 99283; 96372; J1170; J8540

== ENCOUNTER → 2022-04-09 | Outpatient (CLI) | payer MEDICARE, OTHER ==
--- NOTE | 2022-04-09 08:36 | MM ---
Reason for Exam: Clinical finding. Baseline mammogram. Indicated Problems: Lump or thickening of the right side for 1 Month(s). Patient History: Sister had breast cancer under age 50. Prior Study Comparison: Patient's first Mammogram. Tissue Density: The breast tissue is almost entirely fat. Findings: Analyzed By CAD. Increased density in the right retroareolar nipple region of nipple in the area of palpable abnormality. No suspicious masses ossification or distortions within the left breast. Overall Assessment: Incomplete: need additional imaging evaluation, BI-RAD 0 Management: Diagnostic Breast Ultrasound of the right breast. A clinical breast exam by your physician is recommended on an annual basis and results should be correlated with mammographic findings. This exam should not preclude additional follow-up of suspicious palpable abnormalities. Results were given to the patient verbally at the time of exam. Electronically signed and approved by: Florian Rivas DO
--- NOTE | 2022-04-09 09:03 | USB ---
Reason for Exam: Clinical finding. Patient History: Sister had breast cancer under age 50. Technique: Method: Targeted. Findings: The area of palpable concern of the right breast and the retroareolar of both breasts were scanned. Retroareolar imaging. Findings are most compatible with asymmetric gynecomastia. Overall Assessment: Benign, BI-RAD 2 Management: Clinical Management of the right breast. Findings consistent with gynecomastia. A clinical breast exam by your physician is recommended on an annual basis and results should be correlated with mammographic findings. This exam should not preclude additional follow-up of suspicious palpable abnormalities. Results were given to the patient verbally at the time of exam. Electronically signed and approved by: Florian Rivas DO
== END | disposition home or self-care (01) ==
LOC: RADMAMWWP 07:48
PROVIDERS: ATTEND Family Medicine
DX: N63.10 Unspecified lump in the right breast, unspecified quadrant (principal); Z80.3 Family history of malignant neoplasm of breast
CPT/HCPCS: 77066; 76642; G0279; 77062

== ENCOUNTER 2022-07-11 10:50 | Emergency (ER) | payer MEDICARE, OTHER ==
[2022-07-11 11:28] VITALS: BP 121/79; PULSE 100; RESP 20; TEMP 97.9
--- NOTE | 2022-07-11 11:59 | XR ---
EXAMINATION TYPE: XR shoulder complete RT DATE OF EXAM: 07/11/2022 CLINICAL HISTORY: pain TECHNIQUE: Three views of the right shoulder are obtained. COMPARISON: None FINDINGS: There is no acute fracture/dislocation evident. The acromioclavicular and glenohumeral gwendolyn int spaces appear mildly narrowed. The visualized ribs are intact and unremarkable. IMPRESSION: 1. There is no acute fracture or dislocation. ICD 10 NO FRACTURE, INITIAL EVALUATION
[2022-07-11] MEDS ORDERED: HYDROmorphone 0.5 MG/0.5 ML SYRINGE IM STA (14:01)
--- NOTE | 2022-07-11 14:17 | ED ---
General Adult HPI - General Chief complaint: Extremity Injury, Upper Stated complaint: Shoulder Pain Time Seen by Provider: 07/11/22 13:52 Source: patient Mode of arrival: ambulatory Limitations: no limitations - History of Present Illness Initial comments: Dictation was produced using SCOUPY dictation software. please excuse any grammatical, word or spelling errors. Chief Complaint: Patient is a 62-year-old male presents with acute on chronic right shoulder pain History of Present Illness: Patient is a 62-year-old male he presents emergency Department with acute on chronic right shoulder pain. 3 or 4 days ago he was working in his shop. He had formed several repetitive exertional movements with his right shoulder. He woke up the next day with some pain. States pain is severe and difficult to abduct his right upper extremity. Patient has chronic carpal tunnel to bilateral hands. Denies any trauma to the right shoulder. Patient has had shoulder injections in the past. The ROS documented in this emergency department record has been reviewed and confirmed by me. Those systems with pertinent positive or negative responses have been documented in the HPI. All other systems are other negative and/or noncontributory. PHYSICAL EXAM: General Impression: Alert and oriented x3, not in acute distress HEENT: Normocephalic atraumatic, extra-ocular movements intact, pupils equal and reactive to light bilaterally, mucous membranes moist. Cardiovascular: Heart regular rate and rhythm Chest: Able to complete full sentences, no retractions, no tachypnea Musculoskeletal: Pulses present and equal in all extremities, no peripheral edema Right shoulder: Limited abduction only up to approximately 15-20. Patient sta nan it is too painful to abduct his arm even further. Neurovascularly intact. Motor: no focal deficits noted Neurological: CN II-XII grossly intact, no focal motor or sensory deficits noted Skin: Intact with no visualized rashes Psych: Normal affect and mood ED course: 62-year-old male presents emergency department with acute on chronic right shoulder pain. Patient given IM analgesia. Consult on right shoulder exercises. Given referral to shoulder specialist. Provided with prescription for oral analgesics. Nursing notes and chart review was performed Was pt. sent in by a medical professional or institution (, PA, LUBE MAN, urgent care, hospital, or correction...) When possible be specific @ -No Did you speak to anyone other than the patient for history (EMS, parent, family, police, friend...)? What history was obtained from this source @ -No Did you review nursing and triage notes (agree or disagree)? Why? @ -I reviewed and agree with nursing and triage notes Were old charts reviewed (outside hosp., previous admission, EMS record, old EKG, old radiological studies, urgent care reports/EKG's, correction records)? Report findings @ -No old charts were reviewed Differential Diagnosis (chest pain, altered mental status, abdominal pain women, abdominal pain men, vaginal bleeding, musculoskeletal, weakness, fever, dyspnea, syncope, headache, dizziness, GI bleed, back pain, seizure, CVA, palpatations, mental health)? @ -not applicable EKG interpreted by me (3pts min.). @ -None done X-rays interpreted by me (1pt min.). @ -No occult fractures CT interpreted by me (1pt min.). @ -None done U/S interpreted by me (1pt. min.). @ -None done What testing was considered but not performed or refused? (CT, X-rays, U/S, labs)? Why? @ -None What meds were considered but not given or refused? Why? @ -None Did you discuss the management of the patient with other professionals (professionals i.e. , PA, LUBE MAN, lab, RT, psych nurse, social studies department chair, locomotive firer/fireman, teacher, loan officer, caser up)? Give summary @ -No Was smoking cessation discussed for >3mins.? @ -No Was critical care preformed (if so, how long)? @ -No Were there social determinants of health that impacted care today? How? (Homelessness, low income, unemployed, alcoholism, drug addiction, transportation, low edu. Level, literacy, decrease access to med. care, assisted, rehab)? @ -No Was there de-escalation of care discussed even if they declined (Discuss DNR or withdrawal of care, Hospice)? DNR status @ -No What co-morbidities impacted this encounter? (DM, HTN, Smoking, COPD, CAD, Cancer, CVA, ARF, Chemo, Hep., AIDS, mental health diagnosis, sleep apnea, morbid obesity)? @ -None Was patient admitted / discharged? Hospital course, mention meds given and route, prescriptions, significant lab abnormalities, going to OR and other pertinent info. @ -See above Undiagnosed new problem with uncertain prognosis? @ -No Drug Therapy requiring intensive monitoring for toxicity (Heparin, Nitro, Insulin, Cardizem)? @ -No Were any procedures done? @ -No Diagnosis/symptom? Acute, or Chronic, or Acute on Chronic? Uncomplicated (without systemic symptoms) or Complicated (systemic symptoms)? @ -1. Acute chronic uncomplicate shoulder pain Side effects of treatment? @ -No Exacerbation, Progression, or Severe Exacerbation? @ -No Poses a threat to life or bodily function? How? (Chest pain, [place], [place], pneumonia, PE, COPD, DKA, ARF, appy, cholecystitis, CVA, Diverticulitis, Homicidal, Suicidal, threat to staff... and all critical care pts) @ -yes - Related Data Home Medications Medication Instructions Recorded Confirmed Fluticasone/Umeclidin/Vilanter 1 puff INHALATION RT-DAILY 06/13/19 08/15/21 [Treletony Ellipta 100-62.5-25] Adalimumab [Humira(Cf) Pen] 40 mg SQ Q14D 08/15/21 08/15/21 Cyclobenzaprine [Flexeril] 10 mg PO BID 08/15/21 08/15/21 Dicyclomine [Bentyl] 20 mg PO TID 08/15/21 08/15/21 Famotidine [Pepcid] 40 mg PO DAILY 08/15/21 08/15/21 Fluticasone Nasal [place] [Flonase 1 spray EA NOSTRIL BID 08/15/21 08/15/21 Nasal [place]] Montelukast [Singulair] 10 mg PO DAILY 08/15/21 08/15/21 Nystatin 100,000 Unit/ml Susp 4 ml PO Q6H 08/15/21 08/15/21 [Mycostatin Oral Susp] Pantoprazole [Protonix] 40 mg PO DAILY 08/15/21 08/15/21 lisinopriL [Zestril] 5 mg PO DAILY 08/15/21 08/15/21 Previous Rx's Medication Instructions Recorded Aspirin 81 mg PO DAILY #30 08/17/21 Atorvastatin [Lipitor] 80 mg PO HS #30 tab 08/17/21 Clopidogrel [Plavix] 75 mg PO DAILY #30 tab 08/17/21 HYDROcodone/APAP 5-325MG [Notrees 1 each PO Q4HR PRN #10 tab 08/17/21 5-325] Ipratropium Nebulized [Atrovent 0.5 mg INHALATION RT-QID #129 ml 08/17/21 Nebulized 0.2 MG/ML] Metoprolol Tartrate [Lopressor] 25 mg PO BID #60 tab 08/17/21 Nitroglycerin Sl Tabs [Nitrostat] 0.4 mg SUBLINGUAL Q5M PRN #20 tab 08/17/21 Spironolactone [Aldactone] 25 mg PO DAILY #30 tab 08/17/21 HYDROcodone/APAP 5-325MG [Notrees 1 tab PO Q6HR PRN 3 Days #12 tab 07/11/22 5-325] Allergies Allergy/AdvReac Type Severity Reaction Status Date / Time hydrocodone Allergy Rash/Hives Verified 07/11/22 11:29 [email or web address] [From Chantix] AdvReac suicidal Verified 02/07/22 19:56 thoughts Review of Systems ROS Statement: Those systems with pertinent positive or pertinent negative responses have been documented in the HPI. ROS Other: All systems not noted in ROS Statement are negative. Past Medical History Past Medical History: Asthma, Blood Disorder, Cancer, COPD, Myocardial Infarction ([place]), Pneumonia Additional Past Medical History / Comment(s): Chronic cervical and back pain, herniated discs/DDD, bronchitis, ulcerative colitis, lower GI bleed, hemachromatosis, R bicep tear, several concussions, skin cancer removed from face. History of Any Multi-Drug Resistant Organisms: None Reported Past Surgical History: Heart Catheterization, Hernia Repair, Orthopedic Surgery, Tonsillectomy Additional Past Surgical History / Comment(s): Bilateral inguinal hernia repairs, R spermatic cord clipped, 14 surgeries to remove rejected hernia mesh, R knee arthroscopies x 3, bilateral heel spurs removed x2, R elbow ORIF/later fa iled attempt to remove screw, bilateral blepharoplasties, colonoscopies, EGD, sigmoidoscopy. Past Anesthesia/Blood Transfusion Reactions: No Reported Reaction, Family History of Problems w/ Anesthesia Additional Past Anesthesia/Blood Transfusion Reaction / Comment(s): dad and brother had problems coming out of anesthesia Past Psychological History: Anxiety, Depression Smoking Status: Current every day smoker, Heavy tobacco smoker Past Alcohol Use History: None Reported Past Drug Use History: Marijuana - Past Family History Sister(s) Family Medical History: Cancer Additional Family Medical History / Comment(s): #1 sister pasted away with lung CA,#2 sister breast CA Mother Family Medical History: AFIB, Diabetes Mellitus Additional Family Medical History / Comment(s): Mother is living. Father Family Medical History: Diabetes Mellitus, Vascular Disorder Additional Family Medical History / Comment(s): Father from cardiomyopathy. General Exam Limitations: no limitations Course Vital Signs 07/11/22 11:25 Temperature 97.9 F Pulse Rate 100 Respiratory 20 Rate Blood Pressure 121/79 O2 Sat by Pulse 98 Oximetry Disposition Clinical Impression: Shoulder pain Disposition: HOME SELF-CARE Condition: Good Instructions (If sedation given, give patient instructions): Shoulder Pain (ED) Prescriptions: HYDROcodone/APAP 5-325MG [Notrees 5-325] 1 tab PO Q6HR PRN 3 Days #12 tab PRN Reason: Severe Pain Is patient prescribed a controlled substance at d/c from ED?: Yes If prescribed controlled substance>3 days was MAPS reviewed?: Prescribed <3 Days Referrals: Doug Conrad MD [Primary Care Provider] - 1-2 days Dinorah Self DO [Doctor of Osteopathic Medicine] - 1-2 days Time of Disposition: 14:17
== END 2022-07-11 15:45 | disposition home or self-care (01) ==
LOC: EC 10:50
DX: M25.511 Pain in right shoulder (principal); J44.9 Chronic obstructive pulmonary disease, unspecified; I25.2 Old myocardial infarction; F41.9 Anxiety disorder, unspecified; F32.A Depression, unspecified; F17.200 Nicotine dependence, unspecified, uncomplicated; F12.90 Cannabis use, unspecified, uncomplicated; Z88.5 Allergy status to narcotic agent; Z88.8 Allergy status to other drugs, medicaments and biological substances; Z79.899 Other long term (current) drug therapy; Z79.51 Long term (current) use of inhaled steroids
CPT/HCPCS: 99283 ×2; 96372 ×2; 73030; J1170

== ENCOUNTER 2022-08-23 08:02 | Observation (INO) | payer MEDICARE, OTHER ==
[2022-08-23] MEDS ORDERED: ONDANSETRON 4 MG/2 ML VIAL IVP STA (08:40)
[2022-08-23] MEDS ORDERED: SODIUM CHLORIDE 0.9% 500 ML 500 ML IV STA (08:40)
[2022-08-23] MEDS ORDERED: KETOROLAC 15 MG/ML 1 ML VIAL IVP STA (08:40)
[2022-08-23] MEDS ORDERED: SODIUM CHLORIDE 0.9% 1,000 ML IV STA (08:40)
[2022-08-23] MEDS ORDERED: HYDROmorphone 0.5 MG/0.5 ML SYRINGE IVP STA (08:41)
[2022-08-23 09:24] LABS: Basophils % (A) 0 %; Eosinophils % (A) 0 %; HCT 46.7 % (39.0-53.0); HGB 16.9 gm/dL (13.0-17.5); Hyperchromasia Slight; Lymphocytes % (A) 9 %; MCH 32.7 pg (25.0-35.0); MCHC 36.1 g/dL (31.0-37.0); MCV 90.7 fL (80.0-100.0); Mean Platelet Volume 7.5; Monocytes # (A) 0.4 k/uL (0-1.0); Monocytes % (A) 3 %; Neutrophils # (A) 9.3 k/uL (1.3-7.7); Neutrophils % (A) 86 %; Platelet Count 265 k/uL (150-450); RBC 5.15 m/uL (4.30-5.90); RDW 12.1 % (11.5-15.5); WBC 10.7 k/uL (3.8-10.6)
[2022-08-23 09:29] LABS: ALT 36 U/L (4-49); AST 39 U/L (17-59); African American GFR (CKD) >90 (>60 ml/min/1.73 sqM); Albumin 4.4 g/dL (3.5-5.0); Alkaline Phosphatase 130 U/L (38-126); Anion Gap 10 mmol/L; Blood Urea Nitrogen 13 mg/dL (9-20); Calcium 9.5 mg/dL (8.4-10.2); Carbon Dioxide 24 mmol/L (22-30); Chloride 99 mmol/L (98-107); Glucose 124 mg/dL (74-99); Lipase 78 U/L (23-300); Non-African American GFR(CKD) >90 (>60 ml/min/1.73 sqM); Potassium 4.4 mmol/L (3.5-5.1); Sodium 133 mmol/L (137-145); Total Bilirubin 0.6 mg/dL (0.2-1.3); Total Protein 7.3 g/dL (6.3-8.2)
--- NOTE | 2022-08-23 09:49 | CT ---
EXAMINATION TYPE: CT abdomen pelvis wo con DATE OF EXAM: 08/23/2022 COMPARISON: 08/16/2018 INDICATION: Testicular and pelvic pain. DLP: 777.4 mGycm, Automated exposure control for dose reduction was used. CONTRAST: 0 mL of Isovue 300. Study performed without Oral Contrast TECHNIQUE: Axial images were obtained from above the diaphragm to the pubic rami in the axial plane a t 5 mm thick sections. Reconstructed images are reviewed on the computer in the coronal plane. FINDINGS: Limited CT sections are obtained the lung bases. The lung bases are clear. There is paraseptal emph ysematous changes evident. CT ABDOMEN: Liver: Normal Spleen: Normal Pancreas: Normal Adrenal glands: The adrenal glands are normal. Gallbladder: Normal Kidneys: No masses are evident. No hydronephrosis is present. There is a superior lateral right chris al cyst measuring 3.6 cm and 2 Hounsfield units. Punctate calcification is noted at the right renal h ilum may be vascular or small pelvic stone measuring 0.4 cm. There appears to be some scarring of the posterior lateral left inferior pole Aorta: Vascular calcification is within the aorta. Inferior vena cava: Normal. CT PELVIS: Debris-filled colon is present. No obvious obstruction is identified. Small bowel loops as visualized appear normal without oral contrast. Appendix: Normal as visualized. There is some pericecal fluid in the paracolic gutter. Inflammatory c hanges adjacent to the appendix however are not identified. Urinary bladder: Normal. Genitourinary structures: Prostate appears slightly prominent. Osseous structures: No suspicious lytic or sclerotic lesions. Facet hypertrophy is within the lumbar spine. IMPRESSIONS: 1. The appendix as visualized appears normal. There is some fluid adjacent to the cecum. Debris-fill ed colon is present throughout its visualized course. Changes to suggest obstruction are not identifi ed.
[2022-08-23] MEDS ORDERED: MAGNESIUM HYDROXIDE 2,400 MG/10 ML CUP PO STA ×2 (10:11→11:55)
[2022-08-23] MEDS ORDERED: IPRATROPIUM-ALBUTEROL 3 ML NEB INHALATION STA (10:11)
--- NOTE | 2022-08-23 10:14 | ED ---
Abdominal Pain HPI - General Chief Complaint: Abdominal Pain Stated Complaint: abd pain Time Seen by Provider: 08/23/22 08:04 Source: patient, EMS, RN notes reviewed Mode of arrival: EMS Limitations: no limitations - History of Present Illness Initial Comments: 62-year-old male presents emergency Department chief complaint abdominal pain. Patient states been constipated recently. Patient states that the pain worsened today and has more pain and right lower quadrant. Patient states that he feels been unable to fill bowel movement. He does have pain areas on his scrotum with no scrotal pain or swelling. No dysuria no history kidney stone of recent. He does admit to nausea without vomiting. Patient has no chest pain or shortness breath. - Related Data Home Medications Medication Instructions Recorded Confirmed RX: Adalimumab [Humira(Cf) Pen] 40 mg SQ Q14D 08/15/21 08/23/22 RX: Cyclobenzaprine [Flexeril] 10 mg PO BID PRN 08/15/21 08/23/22 RX: Dicyclomine [Bentyl] 20 mg PO TID 08/15/21 08/23/22 RX: Famotidine [Pepcid] 40 mg PO HS 08/15/21 08/23/22 RX: Montelukast [Singulair] 10 mg PO DAILY 08/15/21 08/23/22 RX: Nystatin 100,000 Unit/ml Susp 4 ml PO PC-TID 08/15/21 08/23/22 [Mycostatin Oral Susp] RX: Pantoprazole [Protonix] 40 mg PO DAILY 08/15/21 08/23/22 Albuterol Nebulized [Ventolin 2.5 mg INHALATION RT-DAILY 08/23/22 08/23/22 Nebulized] Cholecalciferol [Vitamin D3 (125 125 mcg PO DAILY 08/23/22 08/23/22 Mcg = 5000 Iu)] Ipratropium Nebulized [Atrovent 0.5 mg INHALATION RT-Q6H PRN 08/23/22 08/23/22 Nebulized 0.2 MG/ML] Ipratropium/Albuter 20-100Mcg 1 puff INHALATION RT-QID PRN 08/23/22 08/23/22 [Combivent Respimat 20-100Mcg Inhaler] Metoprolol Succinate (ER) [Toprol 50 mg PO DAILY 08/23/22 08/23/22 Xl] Multivitamins, Thera [Multivitamin 1 tab PO DAILY 08/23/22 08/23/22 (formulary)] [place]-3/Dha/Epa/Fish Oil [Fish Oil 1 cap PO DAILY 08/23/22 08/23/22 500 mg Softgel] Pyridoxine HCl (Vitamin B6) 100 mg PO BID 08/23/22 08/23/22 [Vitamin B-6] RX: Albuterol Nebulized [Ventolin 2.5 mg INHALATION RT-Q6H PRN 08/23/22 08/23/22 Nebulized] RX: Aspirin 81 mg PO HS 08/23/22 08/23/22 RX: Ipratropium Nebulized 0.5 mg INHALATION RT-DAILY 08/23/22 08/23/22 [Atrovent Nebulized 0.2 MG/ML] RX: Magnesium 250 mg PO DAILY 08/23/22 08/23/22 RX: lisinopriL [Zestril] 5 mg PO DAILY 08/23/22 08/23/22 Ubidecarenone [Coenzyme Q10] 100 mg PO DAILY 08/23/22 08/23/22 Previous Rx's Medication Instructions Recorded RX: Atorvastatin [Lipitor] 80 mg PO HS #30 tab 08/17/21 RX: Nitroglycerin Sl Tabs 0.4 mg SUBLINGUAL Q5M PRN #20 tab 08/17/21 [Nitrostat] RX: Spironolactone [Aldactone] 25 mg PO DAILY #30 tab 08/17/21 Allergies Allergy/AdvReac Type Severity Reaction Status Date / Time hydrocodone Allergy Rash/Hives Verified 08/23/22 15:21 [email or web address] [From Chantix] AdvReac suicidal Verified 08/23/22 15:21 thoughts Review of Systems ROS Statement: Those systems with pertinent positive or pertinent negative responses have been documented in the HPI. ROS Other: All systems not noted in ROS Statement are negative. Past Medical History Past Medical History: Asthma, Blood Disorder, Cancer, COPD, Myocardial Infarction ([place]), Pneumonia Additional Past Medical History / Comment(s): Chronic cervical and back pain, herniated discs/DDD, bronchitis, ulcerative colitis, lower GI bleed, hemachromatosis, R bicep tear, several concussions, skin cancer removed from face. History of Any Multi-Drug Resistant Organisms: None Reported Past Surgical History: Heart Catheterization, Hernia Repair, Orthopedic Surgery, Tonsillectomy Additional Past Surgical History / Comment(s): Bilateral inguinal hernia repairs, R spermatic cord clipped, 14 surgeries to remove rejected hernia mesh, R knee arthroscopies x 3, bilateral heel spurs removed x2, R elbow ORIF/later failed attempt to remove screw, bilateral blepharoplasties, colonoscopies, EGD, sigmoidoscopy. Past Anesthesia/Blood Transfusion Reactions: No Reported Reaction, Family History of Problems w/ Anesthesia Additional Past Anesthesia/Blood Transfusion Reaction / Comment(s): dad and brother had problems coming out of anesthesia Past Psychological History: Anxiety, Depression Smoking Status: Current every day smoker, Heavy tobacco smoker Past Alcohol Use History: None Reported Past Drug Use History: Marijuana - Past Family History Sister(s) Family Medical History: Cancer Additional Family Medical History / Comment(s): #1 sister pasted away with lung CA,#2 sister breast CA Mother Family Medical History: AFIB, Diabetes Mellitus Additional Family Medical History / Comment(s): Mother is living. Father Family Medical History: Diabetes Mellitus, Vascular Disorder Additional Family Medical History / Comment(s): Father from cardiomyopathy. General Exam Limitations: no limitations General appearance: alert, in no apparent distress Head exam: Present: atraumatic, normocephalic, normal inspection Eye exam: Present: normal appearance, PERRL, EOMI. Absent: scleral icterus, conjunctival injection, periorbital swelling ENT exam: Present: normal exam, normal oropharynx, mucous membranes moist Neck exam: Present: normal inspection, full ROM. Absent: tenderness, meningismus, lymphadenopathy Respiratory exam: Present: normal lung sounds bilaterally. Absent: respiratory distress, wheezes, rales, rhonchi, stridor Cardiovascular Exam: Present: regular rate, normal rhythm, normal heart sounds. Absent: systolic murmur, diastolic murmur, rubs, gallop, clicks GI/Abdominal exam: Present: soft, tenderness (Mild right-sided), normal bowel sounds. Absent: distended, guarding, rebound, rigid Back exam: Absent: CVA tenderness (R), CVA tenderness (L) Neurological exam: Present: alert Skin exam: Present: warm, dry, intact, normal color. Absent: rash Course Vital Signs 08/23/22 08/23/22 08/23/22 08:05 09:05 10:51 Temperature 97.7 F Pulse Rate 89 81 91 Respiratory 22 24 20 Rate Blood Pressure 127/82 116/72 101/69 O2 Sat by Pulse 97 95 98 Oximetry 08/23/22 08/23/22 08/23/22 10:53 11:02 12:50 Temperature Pulse Rate 89 88 Respiratory 18 18 Rate Blood Pressure 105/64 O2 Sat by Pulse Oximetry Medical Decision Making - Medical Decision Making Was pt. sent in by a medical professional or institution (, PA, TECHNOLOGY SALES SPECIALIST, urgent care, hospital, or prison...) When possible be specific @ -No Did you speak to anyone other than the patient for history (EMS, parent, family, police, friend...)? What history was obtained from this source @ -No Did you review nursing and triage notes (agree or disagree)? Why? @ -I reviewed and agree with nursing and triage notes Were old charts reviewed (outside hosp., previous admission, EMS record, old EKG, old radiological studies, urgent care reports/EKG's, prison records)? Report findings @ -No old charts were reviewed Differential Diagnosis (chest pain, altered mental status, abdominal pain women, abdominal pain men, vaginal bleeding, weakness, fever, dyspnea, syncope, headache, dizziness, GI bleed, back pain, seizure, CVA, palpatations, mental health, musculoskeletal)? @ -Differential Abdominal Pain Men: Appendicitis, cholecystitis, diverticulosis, ischemic bowel, pancreatitis, hepatitis, UTI, gastroenteritis, AAA, incarcerated hernia, bowel obstruction, constipation, inflammatory bowel, hepatitis, peptic ulcer disease, splenic infarction, perforated viscus, testicular torsion, this is not meant to be an al l-inclusive liste] EKG interpreted by me (3pts min.). @ -None X-rays interpreted by me (1pt min.). @ -None done CT interpreted by me (1pt min.). @ -CT abdomen pelvis shows evidence of constipation, normal appendix those there is some free fluid around the cecum U/S interpreted by me (1pt. min.). @ -None done What testing was considered but not performed or refused? (CT, X-rays, U/S, labs)? Why? @ -None What meds were considered but not given or refused? Why? @ -None Did you discuss the management of the patient with other professionals (professionals i.e. DrLeroy, PA, TECHNOLOGY SALES SPECIALIST, lab, RT, psych nurse, social service coordinator, salt grinder, teacher, naval gunfire liaison officer, welfare case worker)? Give summary @ -Case discussed with about CT results, current complaint and treatments. I Was smoking cessation discussed for >3mins.? @ -No Was critical care preformed (if so, how long)? @ -No Were there social determinants of health that impacted care today? How? ( Homelessness, low income, unemployed, alcoholism, drug addiction, transportation, low edu. Level, literacy, decrease access to med. care, usp, rehab)? @ -No Was there de-escalation of care discussed even if they declined (Discuss DNR or withdrawal of care, Hospice)? DNR status @ -No What co-morbidities impacted this encounter? (DM, HTN, Smoking, COPD, CAD, Cancer, CVA, ARF, Chemo, Hep., AIDS, mental health diagnosis, sleep apnea, morbid obesity)? @ -CAD, Was patient admitted / discharged? Hospital course, mention meds given and route, prescriptions, significant lab abnormalities, going to OR and other pertinent info. @ -Admitted patient does have mild leukocytosis, CT showed evidence of constipation though symptoms are worsening and no relief after multiple animals, oral laxatives. Patient case discussed with Dr. Navarro recommends IV antibiotics, pain control antiemetics and observation. Undiagnosed new problem with uncertain prognosis? @ -No Drug Therapy requiring intensive monitoring for toxicity (Heparin, Nitro, Insulin, Cardizem)? @ -No Were any procedures done? @ -No Diagnosis/symptom? @ -ntractable abdominal pain, constipation, Acute, or Chronic, or Acute on Chronic? @ -Acute Uncomplicated (without systemic symptoms) or Complicated (systemic symptoms)? @ -uncomplicated Side effects of treatment? @ -No Exacerbation, Progression, or Severe Exacerbation? @ -No Poses a threat to life or bodily function? How? (Chest pain, [place], [place], pneumonia, PE, COPD, DKA, ARF, appy, cholecystitis, CVA, Diverticulitis, Homicidal, Suicidal, threat to staff... and all critical care pts) @ -No - Lab Data Result diagrams: 08/23/22 08:53 08/23/22 08:53 Lab Results 08/23/22 08/23/22 08/23/22 Range/Units 08:53 08:53 08:53 WBC 10.7 H (3.8-10.6) k/uL RBC 5.15 (4.30-5.90) m/uL Hgb 16.9 (13.0-17.5) gm/dL Hct 46.7 (39.0-53.0) % MCV 90.7 (80.0-100.0) fL MCH 32.7 (25.0-35.0) pg MCHC 36.1 (31.0-37.0) g/dL RDW 12.1 (11.5-15.5) % Plt Count 265 (150-450) k/uL MPV 7.5 Neutrophils % 86 % Lymphocytes % 9 % Monocytes % 3 % Eosinophils % 0 % Basophils % 0 % Neutrophils # 9.3 H (1.3-7.7) k/uL Lymphocytes # 1.0 (1.0-4.8) k/uL Monocytes # 0.4 (0-1.0) k/uL Eosinophils # 0.0 (0-0.7) k/uL Basophils # 0.0 (0-0.2) k/uL Hyperchromasia Slight Sodium 133 L (137-145) mmol/L Potassium 4.4 (3.5-5.1) mmol/L Chloride 99 (98-107) mmol/L Carbon Dioxide 24 (22-30) mmol/L Anion Gap 10 mmol/L BUN 13 (9-20) mg/dL Creatinine 0.57 L (0.66-1.25) mg/dL Est GFR (CKD-EPI)AfAm >90 (>60 ml/min/1.73 sqM) Est GFR (CKD-EPI)NonAf >90 (>60 ml/min/1.73 sqM) Glucose 124 H (74-99) mg/dL Plasma Lactic Acid Arya 1.8 (0.7-2.0) mmol/L Calcium 9.5 (8.4-10.2) mg/dL Total Bilirubin 0.6 (0.2-1.3) mg/dL AST 39 (17-59) U/L ALT 36 (4-49) U/L Alkaline Phosphatase 130 H (38-126) U/L Total Protein 7.3 (6.3-8.2) g/dL Albumin 4.4 (3.5-5.0) g/dL Lipase 78 (23-300) U/L Disposition Clinical Impression: Abdominal pain, Constipation, Intractable abdominal pain, Intra-abdominal fluid Disposition: ADMITTED IP TO THIS [facility] Condition: Poor Time of Disposition: 14:16
[2022-08-23] MEDS ORDERED: HYDROmorphone 1 MG/ML 1 ML SYRINGE IVP STA (10:21)
[2022-08-23] MEDS ORDERED: HYDROcodone/APAP 5-325MG 1 EACH TAB PO PRN (14:16)
[2022-08-23] MEDS ORDERED: NALOXONE 0.4 MG/ML 1 ML VIAL IV PRN (14:16)
[2022-08-23] MEDS ORDERED: PEG 3350 (236 GM/BTL) + LYTES 4,000 ML BOTTLE PO ONE (14:19)
[2022-08-23] MEDS: HYDROmorphone 0.5 MG/0.5 ML SYRINGE IVP PRN ×3 (15:07→22:23)
[2022-08-23] MEDS: PIPERACILLIN-TAZOBACTAM 3.375 GM in SODIUM CHLORIDE 0.9% 100 ML IVPB SCH (15:10)
[2022-08-23] MEDS: SODIUM CHLORIDE 0.9% 1,000 ML IV SCH (15:11)
[2022-08-23] MEDS: ONDANSETRON 4 MG/2 ML VIAL IVP PRN (20:09)
[2022-08-23] MEDS: HYDROmorphone 1 MG/ML 1 ML SYRINGE IVP PRN (20:33)
[2022-08-23] MEDS: LORazepam 2 MG/ML INJ IV PRN (20:34)
--- NOTE | 2022-08-23 21:20 | XR ---
EXAMINATION TYPE: XR chest 1V portable DATE OF EXAM: 08/23/2022 HISTORY: Shortness of breath. COMPARISON: None. TECHNIQUE: Single view of the chest is submitted. FINDINGS: Demonstrated are scattered senescent parenchymal change. NG tube is seen coursing into the stomach. There is no evidence for focal infiltrate. The heart is stable. Hilar and mediastinal structures are within normal limits. Degenerative changes are seen of the dorsal spine. IMPRESSION: 1. Chronic changes without evidence for acute pulmonary disease.
[2022-08-24] MEDS: SODIUM CHLORIDE 0.9% 1,000 ML IV SCH ×2 (00:03→17:16)
[2022-08-24] MEDS: PIPERACILLIN-TAZOBACTAM 3.375 GM in SODIUM CHLORIDE 0.9% 100 ML IVPB SCH ×3 (00:04→17:17)
[2022-08-24] MEDS: HYDROmorphone 1 MG/ML 1 ML SYRINGE IVP PRN ×5 (00:14→17:41)
[2022-08-24] MEDS: ONDANSETRON 4 MG/2 ML VIAL IVP PRN (04:03)
[2022-08-24 07:49] LABS: Appearance,Urine Clear (Clear); Bilirubin,Urine Negative (Negative); Blood,Urine Small (Negative); Color,Urine Yellow; Glucose,Urine (UA) Negative (Negative); Ketones,Urine Trace (Negative); Leukocyte Esterase,Urine Negative (Negative); Mucus,Urine Rare /hpf; Nitrite,Urine Negative (Negative); PH, Urine 5.5 (5.0-8.0); Protein,Urine 1+ (Negative); RBC,Urine 1 /hpf (0-5); Specific Gravity,Urine 1.022 (1.001-1.035); Urobilinogen,Urine <2.0 mg/dL (<2.0); WBC,Urine 2 /hpf (0-5)
[2022-08-24] MEDS: HYDROmorphone 0.5 MG/0.5 ML SYRINGE IVP PRN (07:49)
[2022-08-24 08:01] VITALS: RESP 18
[2022-08-24] MEDS: LORazepam 2 MG/ML INJ IV PRN ×2 (08:38→16:01)
[2022-08-24] MEDS ORDERED: IPRATROPIUM 0.5 MG/2.5 ML NEBU INHALATION PRN (09:21)
[2022-08-24] MEDS ORDERED: ALBUTEROL NEBULIZED 2.5 MG/3 ML INHALATION PRN (09:21)
[2022-08-24] MEDS ORDERED: IPRATROPIUM-ALBUTEROL 3 ML NEB INHALATION PRN (09:21)
--- NOTE | 2022-08-24 09:55 | XR ---
EXAMINATION TYPE: XR chest 1V confirm line [facility] DATE OF EXAM: 08/24/2022 COMPARISON: 08/23/2022 INDICATION: Nasogastric tube replaced TECHNIQUE: Single frontal view of the chest is obtained. FINDINGS: The heart size is normal. The pulmonary vasculature is normal. The lungs are clear. Nasogastric tube is in place. This is visualized with the tip within the left upper quadrant of the a bdomen. IMPRESSION: 1. No acute pulmonary process. 2. Nasogastric tube traverses versus pneumothorax with the tip within the abdomen.
[2022-08-24 11:56] LABS: African American GFR (CKD) 50 (>60 ml/min/1.73 sqM); Anion Gap 14 mmol/L; Blood Urea Nitrogen 37 mg/dL (9-20); Calcium 8.9 mg/dL (8.4-10.2); Carbon Dioxide 19 mmol/L (22-30); Chloride 102 mmol/L (98-107); Glucose 96 mg/dL (74-99); Non-African American GFR(CKD) 43 (>60 ml/min/1.73 sqM); Sodium 135 mmol/L (137-145)
--- NOTE | 2022-08-24 12:26 | P.GSHP ---
History of Present Illness H&P Date: 08/24/22 Chief Complaint: Abdominal pain, nausea This a 62-year-old male was admitted through the emergency room. Patient complaints of right-sided abdominal pain and nausea. The patient's admitted for fluid hydration. The patient did have vomiting last night he had a nasogastric tube placed. Patient states that he does not feel well. He still has some complaints of abdominal pain his nausea has subsided. He is also hungry. Patient is a remote history of ulcerative colitis. Past Medical History Past Medical History: Asthma, Blood Disorder, Cancer, COPD, Myocardial Infarction ([place]), Pneumonia Additional Past Medical History / Comment(s): Chronic cervical and back pain, herniated discs/DDD, bronchitis, ulcerative colitis, lower GI bleed, hemachromatosis, R bicep tear, several concussions, skin cancer removed from face. Last Myocardial Infarction Date:: n/a History of Any Multi-Drug Resistant Organisms: None Reported Past Surgical History: Heart Catheterization, Hernia Repair, Orthopedic Surgery, Tonsillectomy Additional Past Surgical History / Comment(s): Bilateral inguinal hernia repairs, R spermatic cord clipped, 14 surgeries to remove rejected hernia mesh, R knee arthroscopies x 3, bilateral heel spurs removed x2, R elbow ORIF/later failed attempt to remove screw, bilateral blepharoplasties, colonoscopies, EGD, sigmoidoscopy. Past Anesthesia/Blood Transfusion Reactions: No Reported Reaction, Family History of Problems w/ Anesthesia Additional Past Anesthesia/Blood Transfusion Reaction / Comment(s): dad and brother had problems coming out of anesthesia Past Psychological History: Anxiety, Depression Smoking Status: Current every day smoker, Heavy tobacco smoker Past Alcohol Use History: None Reported Past Drug Use History: Marijuana - Past Family History Sister(s) Family Medical History: Cancer Additional Family Medical History / Comment(s): #1 sister pasted away with lung CA,#2 sister breast CA Mother Family Medical History: AFIB, Diabetes Mellitus Additional Family Medical History / Comment(s): Mother is living. Father Family Medical History: Diabetes Mellitus, Vascular Disorder Additional Family Medical History / Comment(s): Father from cardiomyopathy. Medications and Allergies Home Medications Medication Instructions Recorded Confirmed Type Adalimumab [Humira(Cf) Pen] 40 mg SQ Q14D 08/15/21 08/23/22 History Cyclobenzaprine [Flexeril] 10 mg PO BID PRN 08/15/21 08/23/22 History Dicyclomine [Bentyl] 20 mg PO TID 08/15/21 08/23/22 History Famotidine [Pepcid] 40 mg PO HS 08/15/21 08/23/22 History Montelukast [Singulair] 10 mg PO DAILY 08/15/21 08/23/22 History Nystatin 100,000 Unit/ml Susp 4 ml PO PC-TID 08/15/21 08/23/22 History [Mycostatin Oral Susp] Pantoprazole [Protonix] 40 mg PO DAILY 08/15/21 08/23/22 History Atorvastatin [Lipitor] 80 mg PO HS #30 tab 08/17/21 08/23/22 Rx Nitroglycerin Sl Tabs [Nitrostat] 0.4 mg SUBLINGUAL Q5M PRN #20 tab 08/17/21 08/23/22 Rx Spironolactone [Aldactone] 25 mg PO DAILY #30 tab 08/17/21 08/23/22 Rx Albuterol Nebulized [Ventolin 2.5 mg INHALATION RT-DAILY 08/23/22 08/23/22 History Nebulized] Albuterol Nebulized [Ventolin 2.5 mg INHALATION RT-Q6H PRN 08/23/22 08/23/22 History Nebulized] Aspirin 81 mg PO HS 08/23/22 08/23/22 History Cholecalciferol [Vitamin D3 (125 125 mcg PO DAILY 08/23/22 08/23/22 History Mcg = 5000 Iu)] Ipratropium Nebulized [Atrovent 0.5 mg INHALATION RT-DAILY 08/23/22 08/23/22 History Nebulized 0.2 MG/ML] Ipratropium Nebulized [Atrovent 0.5 mg INHALATION RT-Q6H PRN 08/23/22 08/23/22 History Nebulized 0.2 MG/ML] Ipratropium/Albuter 20-100Mcg 1 puff INHALATION RT-QID PRN 08/23/22 08/23/22 History [Combivent Respimat 20-100Mcg Inhaler] Magnesium 250 mg PO DAILY 08/23/22 08/23/22 History Metoprolol Succinate (ER) [Toprol 50 mg PO DAILY 08/23/22 08/23/22 History Xl] Multivitamins, Thera [Multivitamin 1 tab PO DAILY 08/23/22 08/23/22 History (formulary)] [place]-3/Dha/Epa/Fish Oil [Fish Oil 1 cap PO DAILY 08/23/22 08/23/22 History 500 mg Softgel] Pyridoxine HCl (Vitamin B6) 100 mg PO BID 08/23/22 08/23/22 History [Vitamin B-6] Ubidecarenone [Coenzyme Q10] 100 mg PO DAILY 08/23/22 08/23/22 History lisinopriL [Zestril] 5 mg PO DAILY 08/23/22 08/23/22 History Allergies Allergy/AdvReac Type Severity Reaction Status Date / Time hydrocodone Allergy Rash/Hives Verified 08/23/22 15:21 [email or web address] [From Chantix] AdvReac suicidal Verified 08/23/22 15:21 thoughts Surgical - Exam Vital Signs Temp Pulse Resp BP Pulse Ox 97.7 F 89 22 127/82 97 08/23/22 08:05 08/23/22 08:05 08/23/22 08:05 08/23/22 08:05 08/23/22 08:05 - General well developed, no distress - Eyes PERRL - ENT normal pinna - Neck no masses - Respiratory normal expansion - Cardiovascular Rhythm: regular - Abdomen Minimal tenderness. There is no rebound or guarding Abdomen: soft Results - Labs 08/23/22 08:53 08/24/22 11:26 Abnormal Lab Results - Last 24 Hours (Table) 08/24/22 08/24/22 Range/Units 07:23 11:26 Sodium 135 L (137-145) mmol/L Potassium 6.0 H (3.5-5.1) mmol/L Carbon Dioxide 19 L (22-30) mmol/L BUN 37 H (9-20) mg/dL Creatinine 1.69 H (0.66-1.25) mg/dL Urine Protein 1+ H (Negative) Urine Ketones Trace H (Negative) Urine Blood Small H (Negative) Urine Mucus Rare H (None) /hpf Diabetes panel 08/24/22 Range/Units 11:26 Sodium 135 L (137-145) mmol/L Potassium 6.0 H (3.5-5.1) mmol/L Chloride 102 (98-107) mmol/L Carbon Dioxide 19 L (22-30) mmol/L BUN 37 H (9-20) mg/dL Creatinine 1.69 H (0.66-1.25) mg/dL Glucose 96 (74-99) mg/dL Calcium 8.9 (8.4-10.2) mg/dL Calcium panel 08/24/22 Range/Units 11:26 Calcium 8.9 (8.4-10.2) mg/dL Pituitary panel 08/24/22 Range/Units 11:26 Sodium 135 L (137-145) mmol/L Potassium 6.0 H (3.5-5.1) mmol/L Chloride 102 (98-107) mmol/L Carbon Dioxide 19 L (22-30) mmol/L BUN 37 H (9-20) mg/dL Creatinine 1.69 H (0.66-1.25) mg/dL Glucose 96 (74-99) mg/dL Calcium 8.9 (8.4-10.2) mg/dL Adrenal panel 08/24/22 Range/Units 11:26 Sodium 135 L (137-145) mmol/L Potassium 6.0 H (3.5-5.1) mmol/L Chloride 102 (98-107) mmol/L Carbon Dioxide 19 L (22-30) mmol/L BUN 37 H (9-20) mg/dL Creatinine 1.69 H (0.66-1.25) mg/dL Glucose 96 (74-99) mg/dL Calcium 8.9 (8.4-10.2) mg/dL - Imaging CT scan - abdomen: pending (Some fluid in the pericecal area without evidence of appendiceal inflammation. No sign of bowel obstruction. No evidence of inflammatory bowel disease. No oral contrast) Assessment and Plan Assessment: Abdominal pain, unsure of etiology at this point. Patient repeat CAT scan with oral contrast
[2022-08-24] MEDS: IOPAMIDOL CONTRAST (ORAL USE) VIAL PO PRN ×2 (12:37→13:40)
[2022-08-24 12:46] LABS: HCT 50.8 % (39.0-53.0); HGB 17.9 gm/dL (13.0-17.5); MCHC 35.3 g/dL (31.0-37.0); MCV 93.5 fL (80.0-100.0); Mean Platelet Volume 8.5; Platelet Count 257 k/uL (150-450); RBC 5.43 m/uL (4.30-5.90); RDW 12.5 % (11.5-15.5); WBC 13.7 k/uL (3.8-10.6)
[2022-08-24 13:34] LABS: Band Neutrophils % 30 %; Basophils # (M) 0.14 k/uL (0-0.2); Lymphocytes # (M) 1.23 k/uL (1.0-4.8); Metamyelocytes # (M) 1.23 k/uL (0); Metamyelocytes % 9 %; Monocytes # (M) 0.55 k/uL (0-1.0); Myelocytes # (M) 0.69 k/uL (0); Myelocytes % 5 %; Neutrophils % (M) 44 %; Nucleated Red Blood Cells 0 /100 WBC (0-0); Total Cells Counted 200
[2022-08-24 15:15] VITALS: BP 108/74; PULSE 104; TEMP 97.8
--- NOTE | 2022-08-24 19:03 | P.CONS ---
History of Present Illness - Reason for Consult Consult date: 08/23/22 - Chief Complaint Medical management - History of Present Illness 62-year-old male presents emergency Department chief complaint abdominal pain. Patient states been constipated recently. Patient states that the pain worsened today and has more pain and right lower quadrant. Patient states that he feels been unable to fill bowel movement. He does have pain areas on his scrotum with no scrotal pain or swelling. No dysuria no history kidney stone of recent. He does admit to nausea without vomiting. Patient has no chest pain or shortness breath. -- CT abdomen completed in ED revealed some fluid in the CVA area without evidence of appendiceal inflammation. No signs of bowel obstruction. No evidence of inflammatory bowel disease. No oral contrast given -- Patient is admitted to general surgery and repeat CT of the abdomen with oral contrast Review of Systems REVIEW OF SYSTEMS: CONSTITUTIONAL: No fever, no malaise, no fatigue. HEENT: No recent visual problems or hearing problems. Denied any sore throat. CARDIOVASCULAR: No chest pain, orthopnea, PND, no palpitations, no syncope. PULMONARY: No shortness of breath, no cough, no hemoptysis. GASTROINTESTINAL: No diarrhea, no nausea, no vomiting, no abdominal pain. NEUROLOGICAL: No headaches, no weakness, no numbness. HEMATOLOGICAL: Denies any bleeding or petechiae. GENITOURINARY: Denies any burning micturition, frequency, or urgency. MUSCULOSKELETAL/RHEUMATOLOGICAL: Denies any joint pain, swelling, or any muscle pain. ENDOCRINE: Denies any polyuria or polydipsia. The rest of the 14-point review of systems is negative. Past Medical History Past Medical History: Asthma, Blood Disorder, Cancer, COPD, Myocardial Infarction ([place]), Pneumonia Additional Past Medical History / Comment(s): Chronic cervical and back pain, herniated discs/DDD, bronchitis, ulcerative colitis, lower GI bleed, hemachromatosis, R bicep tear, several concussions, skin cancer removed from face. History of Any Multi-Drug Resistant Organisms: None Reported Past Surgical History: Heart Catheterization, Hernia Repair, Orthopedic Surgery, Tonsillectomy Additional Past Surgical History / Comment(s): Bilateral inguinal hernia repairs, R spermatic cord clipped, 14 surgeries to remove rejected hernia mesh, R knee arthroscopies x 3, bilateral heel spurs removed x2, R elbow ORIF/later failed attempt to remove screw, bilateral blepharoplasties, colonoscopies, EGD, sigmoidoscopy. Past Anesthesia/Blood Transfusion Reactions: No Reported Reaction, Family History of Problems w/ Anesthesia Additional Past Anesthesia/Blood Transfusion Reaction / Comm: dad and brother had problems coming out of anesthesia Past Psychological History: Anxiety, Depression Smoking Status: Current every day smoker, Heavy tobacco smoker Past Alcohol Use History: None Reported Past Drug Use History: Marijuana - Past Family History Sister(s) Family Medical History: Cancer Additional Family Medical History / Comment(s): #1 sister pasted away with lung CA,#2 sister breast CA Mother Family Medical History: AFIB, Diabetes Mellitus Additional Family Medical History / Comment(s): Mother is living. Father Family Medical History: Diabetes Mellitus, Vascular Disorder Additional Family Medical History / Comment(s): Father from cardiomyopathy. Medications and Allergies Home Medications Medication Instructions Recorded Confirmed Type Adalimumab [Humira(Cf) Pen] 40 mg SQ Q14D 08/15/21 08/23/22 History Cyclobenzaprine [Flexeril] 10 mg PO BID PRN 08/15/21 08/23/22 History Dicyclomine [Bentyl] 20 mg PO TID 08/15/21 08/23/22 History Famotidine [Pepcid] 40 mg PO HS 08/15/21 08/23/22 History Montelukast [Singulair] 10 mg PO DAILY 08/15/21 08/23/22 History Nystatin 100,000 Unit/ml Susp 4 ml PO PC-TID 08/15/21 08/23/22 History [Mycostatin Oral Susp] Pantoprazole [Protonix] 40 mg PO DAILY 08/15/21 08/23/22 History Atorvastatin [Lipitor] 80 mg PO HS #30 tab 08/17/21 08/23/22 Rx Nitroglycerin Sl Tabs [Nitrostat] 0.4 mg SUBLINGUAL Q5M PRN #20 tab 08/17/21 08/23/22 Rx Spironolactone [Aldactone] 25 mg PO DAILY #30 tab 08/17/21 08/23/22 Rx Albuterol Nebulized [Ventolin 2.5 mg INHALATION RT-DAILY 08/23/22 08/23/22 History Nebulized] Albuterol Nebulized [Ventolin 2.5 mg INHALATION RT-Q6H PRN 08/23/22 08/23/22 History Nebulized] Aspirin 81 mg PO HS 08/23/22 08/23/22 History Cholecalciferol [Vitamin D3 (125 125 mcg PO DAILY 08/23/22 08/23/22 History Mcg = 5000 Iu)] Ipratropium Nebulized [Atrovent 0.5 mg INHALATION RT-DAILY 08/23/22 08/23/22 History Nebulized 0.2 MG/ML] Ipratropium Nebulized [Atrovent 0.5 mg INHALATION RT-Q6H PRN 08/23/22 08/23/22 History Nebulized 0.2 MG/ML] Ipratropium/Albuter 20-100Mcg 1 puff INHALATION RT-QID PRN 08/23/22 08/23/22 History [Combivent Respimat 20-100Mcg Inhaler] Magnesium 250 mg PO DAILY 08/23/22 08/23/22 History Metoprolol Succinate (ER) [Toprol 50 mg PO DAILY 08/23/22 08/23/22 History Xl] Multivitamins, Thera [Multivitamin 1 tab PO DAILY 08/23/22 08/23/22 History (formulary)] [place]-3/Dha/Epa/Fish Oil [Fish Oil 1 cap PO DAILY 08/23/22 08/23/22 History 500 mg Softgel] Pyridoxine HCl (Vitamin B6) 100 mg PO BID 08/23/22 08/23/22 History [Vitamin B-6] Ubidecarenone [Coenzyme Q10] 100 mg PO DAILY 08/23/22 08/23/22 History lisinopriL [Zestril] 5 mg PO DAILY 08/23/22 08/23/22 History Allergies Allergy/AdvReac Type Severity Reaction Status Date / Time hydrocodone Allergy Rash/Hives Verified 08/23/22 15:21 [email or web address] [From Chantix] AdvReac suicidal Verified 08/23/22 15:21 thoughts Physical Exam Vitals: Vital Signs Temp Pulse Resp BP Pulse Ox 08/23/22 12:50 105/64 08/23/22 11:02 88 18 08/23/22 10:53 89 18 08/23/22 10:51 91 20 101/69 98 08/23/22 09:05 81 24 116/72 95 08/23/22 08:05 97.7 F 89 22 127/82 97 Intake and Output 08/23/22 08/23/22 08/23/22 06:59 14:59 22:59 Output Total 182 Balance -182 Output: Post Void Residual 182 Other: Weight 81.647 kg PHYSICAL EXAMINATION: GENERAL: The patient is alert and oriented x3, not in any acute distress. Well developed, well nourished. HEENT: Pupils are round and equally reacting to light. EOMI. No scleral icterus. No conjunctival pallor. Normocephalic, atraumatic. No pharyngeal erythema. No thyromegaly. CARDIOVASCULAR: S1 and S2 present. No murmurs, rubs, or gallops. PULMONARY: Chest is clear to auscultation, no wheezing or crackles. ABDOMEN: Soft, nontender, nondistended, normoactive bowel sounds. No palpable organomegaly. MUSCULOSKELETAL: No joint swelling or deformity. EXTREMITIES: No cyanosis, clubbing, or pedal edema. NEUROLOGICAL: Gross neurological examination did not reveal any focal deficits. SKIN: No rashes. Results CBC & Chem 7: 08/24/22 11:26 08/24/22 11:26 Labs: Abnormal Lab Results - Last 24 Hours (Table) 08/23/22 08/23/22 Range/Units 08:53 08:53 WBC 10.7 H (3.8-10.6) k/uL Neutrophils # 9.3 H (1.3-7.7) k/uL Sodium 133 L (137-145) mmol/L Creatinine 0.57 L (0.66-1.25) mg/dL Glucose 124 H (74-99) mg/dL Alkaline Phosphatase 130 H (38-126) U/L Assessment and Plan Assessment: 1. Abdominal pain with nausea and vomiting; rule out bowel obstruction 2. Acute renal injury/dehydration; BUN/creatinine is elevated at 37/1.6 upon admission; patient has been placed on IV fluid hydration; monitor strict MONICO's, daily weights, renal function and electrolytes; avoid nephrotoxins and hypotension 3. Hyperkalemia; sodium is elevated at 6.0; likely related to the acute renal injury; patient received treatment in ED; we'll monitor electrolytes closely 4. Leukocytosis; suspicious for intra-abdominal infection; patient has been placed on IV antibiotics. Workup was completed 5. Asthma/COPD; continue with home inhaler therapy; Singulair 10 mg daily 6. Hyperlipidemia; Lipitor 40 mg by mouth daily at bedtime a remains on hold 7. Hypertension; metoprolol 50 mg daily with lisinopril 5 mg daily
--- NOTE | 2022-08-24 19:05 | P.PN ---
Subjective Progress Note Date: 08/24/22 62-year-old male presents emergency Department chief complaint abdominal pain. Patient states been constipated recently. Patient states that the pain worsened today and has more pain and right lower quadrant. Patient states that he feels been unable to fill bowel movement. He does have pain areas on his scrotum with no scrotal pain or swelling. No dysuria no history kidney stone of recent. He does admit to nausea without vomiting. Patient has no chest pain or shortness breath. -- CT abdomen completed in ED revealed some fluid in the CVA area without evidence of appendiceal inflammation. No signs of bowel obstruction. No evidence of inflammatory bowel disease. No oral contrast given -- Patient is admitted to general surgery and repeat CT of the abdomen with oral contrast Patient is seen and evaluated in room at bedside; continues to have a golf pain with nausea and vomiting; NG tube has been placed to suction - Patient has been evaluated by surgery and is recommended CT abdomen with oral contrast Objective - Vital Signs Vital signs: Vital Signs Temp 97.8 F 08/24/22 15:00 Pulse 104 H 08/24/22 15:00 Resp 18 08/24/22 15:00 BP 108/74 08/24/22 15:00 Pulse Ox 94 L 08/24/22 15:00 FiO2 Intake & Output 08/24/22 08/24/22 08/25/22 06:59 18:59 06:59 Output Total 700 1800 Balance -700 -1800 Output: Gastric Drainage 700 1800 Other: Voiding Method Urinal # Voids 1 # Bowel Movements 0 - Exam REVIEW OF SYSTEMS: CONSTITUTIONAL: No fever, no malaise, no fatigue. HEENT: No recent visual problems or hearing problems. Denied any sore throat. CARDIOVASCULAR: No chest pain, orthopnea, PND, no palpitations, no syncope. PULMONARY: No shortness of breath, no cough, no hemoptysis. GASTROINTESTINAL: No diarrhea, no nausea, no vomiting, no abdominal pain. NEUROLOGICAL: No headaches, no weakness, no numbness. HEMATOLOGICAL: Denies any bleeding or petechiae. GENITOURINARY: Denies any burning micturition, frequency, or urgency. MUSCULOSKELETAL/RHEUMATOLOGICAL: Denies any joint pain, swelling, or any muscle pain. ENDOCRINE: Denies any polyuria or polydipsia. The rest of the 14-point review of systems is negative. - Labs CBC & Chem 7: 05/14/23 11:26 08/24/22 11:26 Labs: Abnormal Lab Results - Last 24 Hours (Table) 08/24/22 08/24/22 08/24/22 Range/Units 07:23 11:26 11:26 WBC 13.7 H (3.8-10.6) k/uL Hgb 17.9 H (13.0-17.5) gm/dL Neutrophils # (Manual) 10.10 H (1.3-7.7) k/uL Metamyelocytes # (Man) 1.23 H (0) k/uL Myelocytes # (Manual) 0.69 H (0) k/uL Sodium 135 L (137-145) mmol/L Potassium 6.0 H (3.5-5.1) mmol/L Carbon Dioxide 19 L (22-30) mmol/L BUN 37 H (9-20) mg/dL Creatinine 1.69 H (0.66-1.25) mg/dL Urine Protein 1+ H (Negative) Urine Ketones Trace H (Negative) Urine Blood Small H (Negative) Urine Mucus Rare H (None) /hpf Assessment and Plan Assessment: 1. Abdominal pain with nausea and vomiting; rule out bowel obstruction 2. Acute renal injury/dehydration; BUN/creatinine is elevated at 37/1.6 upon admission; patient has been placed on IV fluid hydration; monitor strict MONICO's, daily weights, renal function and electrolytes; avoid nephrotoxins and hypotension 3. Hyperkalemia; sodium is elevated at 6.0; likely related to the acute renal injury; patient received treatment in ED; we'll monitor electrolytes closely 4. Leukocytosis; suspicious for intra-abdominal infection; patient has been placed on IV antibiotics. Workup was completed 5. Asthma/COPD; continue with home inhaler therapy; Singulair 10 mg daily 6. Hyperlipidemia; Lipitor 40 mg by mouth daily at bedtime a remains on hold 7. Hypertension; metoprolol 50 mg daily with lisinopril 5 mg daily
--- NOTE | 2022-08-24 19:21 | CT ---
EXAMINATION TYPE: CT abdomen pelvis w con DATE OF EXAM: 08/24/2022 COMPARISON: 08/23/2022 INDICATION: abdominal pain, No bowel movement in few days DLP: 1765 mGycm, Automated exposure control for dose reduction was used. CONTRAST: 50 cc mL of Isovue 300. Study performed with Oral Contrast TECHNIQUE: Axial images were obtained from above the diaphragm to the pubic rami in the axial plane a t 5 mm thick sections. Reconstructed images are reviewed on the computer in the coronal plane. FINDINGS: Limited CT sections are obtained the lung bases. There is mild compressive atelectasis within the de pendent portions of the lungs greater on the right.. CT ABDOMEN: Liver: Normal Spleen: Normal Pancreas: Normal Adrenal glands: The adrenal glands are normal. Gallbladder: Normal Kidneys: No masses are evident. No hydronephrosis is present. No cysts are present. Delayed images were obtained through the kidneys, which remain unremarkable. Aorta: Vascular calcification is within the aorta. Inferior vena cava: Normal. CT PELVIS: Small periumbilical hernia containing mesenteric fat without loops of bowel is present. There are dilated small bowel loops containing fluid. Oral contrast extends through the proximal smal l bowel loops. More Distal small bowel loops are fluid-filled and dilated. There is decompressed ileu m. Transition may be within the right mid abdomen. No etiology for obstruction is identified There appears to be some prior oral contrast which extends to the colon from the splenic flexure. Col on is nondilated and contains air and fecal debris. Appendix: Not identified. Urinary bladder: Decompressed Genitourinary structures: Prostate is somewhat prominent. Osseous structures: No suspicious lytic or sclerotic lesions. IMPRESSIONS: 1. There appears to be a mid ileum caliber change with more proximal small bowel loops which are dil ated with fluid. Contrast extends to the mid jejunum with fluid-filled small bowel loops extending to the mid ileum. The exact zone of transition is not identified. Partial obstruction should be conside red.
[2022-08-25] MEDS ORDERED: ALBUTEROL NEBULIZED 2.5 MG/3 ML INHALATION SCH (08:00)
[2022-08-25] MEDS ORDERED: IPRATROPIUM 0.5 MG/2.5 ML NEBU INHALATION SCH (08:00)
== END 2022-08-24 21:30 | disposition left against medical advice (07) ==
LOC: EC 08:02 → 6NMEDSUR 14:16
PROVIDERS: ADMIT Surgery; ATTEND Surgery
DX: R10.31 Right lower quadrant pain (principal); N17.9 Acute kidney failure, unspecified; K59.00 Constipation, unspecified; E86.0 Dehydration; E87.5 Hyperkalemia; D72.829 Elevated white blood cell count, unspecified; Z53.21 Procedure and treatment not carried out due to patient leaving prior to being seen by health care provider; J44.9 Chronic obstructive pulmonary disease, unspecified; E78.5 Hyperlipidemia, unspecified; I10 Essential (primary) hypertension; K51.90 Ulcerative colitis, unspecified, without complications; E83.119 Hemochromatosis, unspecified; I25.2 Old myocardial infarction; F32.A Depression, unspecified; F41.9 Anxiety disorder, unspecified; F17.200 Nicotine dependence, unspecified, uncomplicated; Z79.82 Long term (current) use of aspirin; Z79.811 Long term (current) use of aromatase inhibitors; Z79.899 Other long term (current) drug therapy; Z88.5 Allergy status to narcotic agent; Z88.8 Allergy status to other drugs, medicaments and biological substances; Z87.820 Personal history of traumatic brain injury; Z87.19 Personal history of other diseases of the digestive system; Z87.01 Personal history of pneumonia (recurrent); Z85.828 Personal history of other malignant neoplasm of skin; Z98.890 Other specified postprocedural states; Z82.49 Family history of ischemic heart disease and other diseases of the circulatory system; Z80.3 Family history of malignant neoplasm of breast; Z80.1 Family history of malignant neoplasm of trachea, bronchus and lung; Z83.3 Family history of diabetes mellitus
CPT/HCPCS: 96376 ×3; 96361 ×2; 96366 ×3; 96375 ×2; 96365; 99285; 51798; 36415; 94640; 80053; 80048; 83605; 83690; 85025 ×2; 81001; 71045; 74176; 74177; G0378 ×2; J2543 ×2; J2060 ×2; J3360; J2405 ×2; J1170 ×4; J1885; Q9967

== ENCOUNTER 2022-08-25 08:14 | Emergency (ER) | payer MEDICARE, OTHER ==
[2022-08-25 08:22] VITALS: RESP 18
--- NOTE | 2022-08-25 08:59 | ED ---
General Adult HPI - General Chief complaint: Abdominal Pain Stated complaint: Abd Pain Time Seen by Provider: 08/25/22 08:17 Source: patient Mode of arrival: EMS Limitations: no limitations - History of Present Illness Initial comments: Dictation was produced using [facility] dictation software. please excuse any grammatical, word or spelling errors. Chief Complaint: 62-year-old male left AMA last night for bowel obstruction as presents again to the ER for persistent abdominal pain History of Present Illness: 62-year-old male who was recently admitted to the hospital. Patient was seen here 2 days ago admitted for bowel obstruction chronic abdominal pain. He was admitted to the hospital and evaluated by general surgeon. Plan is for patient have a repeat scan for bowel obstruction. Patient was dissatisfied with the care he was receiving last night and decided to leave AGAINST MEDICAL ADVICE. States that overnight symptoms are not improve bring him back to the emergency room. Denies any fever. Has not had a bowel movement. States that his bleeding is much worse. The ROS documented in this emergency department record has been reviewed and confirmed by me. Those systems with pertinent positive or negative responses have been documented in the HPI. All other systems are other negative and/or noncontributory. - Related Data Home Medications Medication Instructions Recorded Confirmed Adalimumab [Humira(Cf) Pen] 40 mg SQ Q14D 08/15/21 08/25/22 Cyclobenzaprine [Flexeril] 10 mg PO BID PRN 08/15/21 08/25/22 Dicyclomine [Bentyl] 20 mg PO TID 08/15/21 08/25/22 Famotidine [Pepcid] 40 mg PO HS 08/15/21 08/25/22 Montelukast [Singulair] 10 mg PO DAILY 08/15/21 08/25/22 Nystatin 100,000 Unit/ml Susp 4 ml PO PC-TID 08/15/21 08/25/22 [Mycostatin Oral Susp] Pantoprazole [Protonix] 40 mg PO DAILY 08/15/21 08/25/22 Albuterol Nebulized [Ventolin 2.5 mg INHALATION RT-DAILY 08/23/22 08/25/22 Nebulized] Albuterol Nebulized [Ventolin 2.5 mg INHALATION RT-QID PRN 08/23/22 08/25/22 Nebulized] Aspirin 81 mg PO HS 08/23/22 08/25/22 Cholecalciferol [Vitamin D3 (125 125 mcg PO DAILY 08/23/22 08/25/22 Mcg = 5000 Iu)] Ipratropium Nebulized [Atrovent 0.5 mg INHALATION RT-DAILY 08/23/22 08/25/22 Nebulized 0.2 MG/ML] Ipratropium Nebulized [Atrovent 0.5 mg INHALATION RT-QID PRN 08/23/22 08/25/22 Nebulized 0.2 MG/ML] Ipratropium/Albuter 20-100Mcg 1 puff INHALATION RT-QID PRN 08/23/22 08/25/22 [Combivent Respimat 20-100Mcg Inhaler] Magnesium 250 mg PO DAILY 08/23/22 08/25/22 Metoprolol Succinate (ER) [Toprol 50 mg PO DAILY 08/23/22 08/25/22 Xl] Multivitamins, Thera [Multivitamin 1 tab PO DAILY 08/23/22 08/25/22 (formulary)] [place]-3/Dha/Epa/Fish Oil [Fish Oil 1 cap PO DAILY 08/23/22 08/25/22 500 mg Softgel] Pyridoxine HCl (Vitamin B6) 100 mg PO BID 08/23/22 08/25/22 [Vitamin B-6] Ubidecarenone [Coenzyme Q10] 100 mg PO DAILY 08/23/22 08/25/22 lisinopriL [Zestril] 5 mg PO DAILY 08/23/22 08/25/22 Previous Rx's Medication Instructions Recorded Atorvastatin [Lipitor] 80 mg PO HS #30 tab 08/17/21 Nitroglycerin Sl Tabs [Nitrostat] 0.4 mg SUBLINGUAL Q5M PRN #20 tab 08/17/21 Spironolactone [Aldactone] 25 mg PO DAILY #30 tab 08/17/21 Allergies Allergy/AdvReac Type Severity Reaction Status Date / Time hydrocodone Allergy Rash/Hives Verified 08/25/22 09:52 varenicline [From Chantix] AdvReac suicidal Verified 08/25/22 09:52 thoughts Review of Systems ROS Statement: Those systems with pertinent positive or pertinent negative responses have been documented in the HPI. ROS Other: All systems not noted in ROS Statement are negative. Past Medical History Past Medical History: Asthma, Blood Disorder, Cancer, COPD, Myocardial Infarction (CT), Pneumonia Additional Past Medical History / Comment(s): Chronic cervical and back pain, herniated discs/DDD, bronchitis, ulcerative colitis, lower GI bleed, hemachromatosis, R bicep tear, several concussions, skin cancer removed from face. Last Myocardial Infarction Date:: n/a History of Any Multi-Drug Resistant Organisms: None Reported Past Surgical History: Heart Catheterization, Hernia Repair, Orthopedic Surgery, Tonsillectomy Additional Past Surgical History / Comment(s): Bilateral inguinal hernia repairs, R spermatic cord clipped, 14 surgeries to remove rejected hernia mesh, R knee arthroscopies x 3, bilateral heel spurs removed x2, R elbow ORIF/later failed attempt to remove screw, bilateral blepharoplasties, colonoscopies, EGD, sigmoidoscopy. Past Anesthesia/Blood Transfusion Reactions: No Reported Reaction, Family History of Problems w/ Anesthesia Additional Past Anesthesia/Blood Transfusion Reaction / Comment(s): dad and brother had problems coming out of anesthesia Past Psychological History: Anxiety, Depression Smoking Status: Current every day smoker, Heavy tobacco smoker Past Alcohol Use History: None Reported Past Drug Use History: Marijuana - Past Family History Sister(s) Family Medical History: Cancer Additional Family Medical History / Comment(s): #1 sister pasted away with lung CA,#2 sister breast CA Mother Family Medical History: AFIB, Diabetes Mellitus Additional Family Medical History / Comment(s): Mother is living. Father Family Medical History: Diabetes Mellitus, Vascular Disorder Additional Family Medical History / Comment(s): Father from cardiomyopathy. General Exam - General Exam Comments Initial Comments: PHYSICAL EXAM: General Impression: Alert and oriented x3, acute distress due to nausea and abdominal pain HEENT: Normocephalic atraumatic, extra-ocular movements intact, pupils equal and reactive to light bilaterally, mucous membranes moist. Cardiovascular: Heart regular rate and rhythm Chest: Able to complete full sentences, no retractions, no tachypnea Abdomen: abdomen soft, diffusely tender, tympanitic to percussion, non-diste nded, no organomegaly Musculoskeletal: Pulses present and equal in all extremities, no peripheral ed reinaldo Motor: no focal deficits noted Neurological: CN II-XII grossly intact, no focal motor or sensory deficits noted Skin: Intact with no visualized rashes Psych: Normal affect and mood Limitations: no limitations Course Vital Signs 08/25/22 08/25/22 08:15 09:42 Temperature 98.9 F Pulse Rate 108 H 106 H Respiratory 18 18 Rate Blood Pressure 141/70 124/73 O2 Sat by Pulse 95 97 Oximetry - Reevaluation(s) Reevaluation #1: 08/25/22 08:[address] Navarro cotton washer for general surgery at approximately 8:55 AM. He is refusing care for patient given that he left AMA last night. Recommended the patient be transferred to outside hospital Reevaluation #2: 08/25/22 09:[address] Kay. She did not want to accept care for patient states that he should be admitted to Dr. Navarro. Medical Decision Making - Medical Decision Making Was pt. sent in by a medical professional or institution (, PA, TIRE DESIGN ENGINEER, urgent care, hospital, or [place] health care facility...) When possible be specific @ -No Did you speak to anyone other than the patient for history (EMS, parent, family, police, friend...)? What history was obtained from this source @ - at the bedside states the patient was delusional when he made the decision to leave AGAINST MEDICAL ADVICE Did you review nursing and triage notes (agree or disagree)? Why? @ -I reviewed and agree with nursing and triage notes Were old charts reviewed (outside hosp., previous admission, EMS record, old EKG, old radiological studies, urgent care reports/EKG's, [place] health care facility records)? Report findings @ -Prior chart was reviewed including general surgery notes and I am consultation notes suggest that patient is admitted for bowel obstruction Differential Diagnosis (chest pain, altered mental status, abdominal pain women, abdominal pain men, vaginal bleeding, musculoskeletal, weakness, fever, dyspnea, syncope, headache, dizziness, GI bleed, back pain, seizure, CVA, palpatations, mental health)? @ -Differential Abdominal Pain Men: Appendicitis, cholecystitis, diverticulosis, ischemic bowel, pancreatitis, hepatitis, UTI, gastroenteritis, AAA, incarcerated hernia, bowel obstruction, constipation, inflammatory bowel, hepatitis, peptic ulcer disease, splenic infarction, perforated viscus, testicular torsion, this is not meant to be an all-inclusive list EKG interpreted by me (3pts min.). @ -none X-rays interpreted by me (1pt min.). @ -Abdominal x-ray suspicious for free air under the diaphragm. CT interpreted by me (1pt min.). @ -Computed tomography scan of the abdomen and pelvis reordered showing all instructions without any free intraperitoneal air U/S interpreted by me (1pt. min.). @ -None done What testing was considered but not performed or refused? (CT, X-rays, U/S, labs)? Why? @ -None What meds were considered but not given or refused? Why? @ -None Did you discuss the management of the patient with other professionals (professionals i.e. DrLeroy, PA, TIRE DESIGN ENGINEER, lab, RT, psych nurse, social worker health services, trial lawyer, teacher, medical laboratory technical officer, caseworker protective services)? Give summary @ -See above Was smoking cessation discussed for >3mins.? @ -No Was critical care preformed (if so, how long)? @ -No Were there social determinants of health that impacted care today? How? (H omelessness, low income, unemployed, alcoholism, drug addiction, transportation, low edu. Level, literacy, decrease access to med. care, custodial, rehab)? @ -No Was there de-escalation of care discussed even if they declined (Discuss DNR or withdrawal of care, Hospice)? DNR status @ -No What co-morbidities impacted this encounter? (DM, HTN, Smoking, COPD, CAD, Cancer, CVA, ARF, Chemo, Hep., AIDS, mental health diagnosis, sleep apnea, morbid obesity)? @ -None Was patient admitted / discharged? Hospital course, mention meds given and route, prescriptions, significant lab abnormalities, going to OR and other pertinent info. @ -62-year-old male presents emergency department for abdominal pain. Patient recently admitted to the hospital 2 days ago for small bowel obstruction. He left AGAINST MEDICAL ADVICE yesterday this emergency department is worsening symptoms. Patient was readmitted however Dr. Navarro refusing admission. Attempt was made to admit patient to other surgeons however there are also refused. Patient agreeable for transfer to [facility] for further care. Case discussed with Dr. Pike for ER to ER transfer. Patient started on Zosyn for nonspecific inflammation around the sigmoid colon. nasogastric tube placed. Undiagnosed new problem with uncertain prognosis? @ -No Drug Therapy requiring intensive monitoring for toxicity (Heparin, Nitro, Insulin, Cardizem)? @ -No Were any procedures done? @ -No Diagnosis/symptom? Acute, or Chronic, or Acute on Chronic? Uncomplicated (without systemic symptoms) or Complicated (systemic symptoms)? @ -1. Bowel obstruction Side effects of treatment? @ -No Exacerbation, Progression, or Severe Exacerbation? @ -No Poses a threat to life or bodily function? How? (Chest pain, USA, CT, pneumonia, PE, COPD, DKA, ARF, appy, cholecystitis, CVA, Diverticulitis, Homicidal, Suicidal, threat to staff... and all critical care pts) @ -yes - Lab Data Result diagrams: 08/25/22 08:40 08/25/22 08:40 Lab Results 08/25/22 08/25/22 08/25/22 Range/Units 08:40 08:40 08:40 WBC 10.1 (3.8-10.6) k/uL RBC 4.62 (4.30-5.90) m/uL Hgb 15.3 (13.0-17.5) gm/dL Hct 42.7 (39.0-53.0) % MCV 92.4 (80.0-100.0) fL MCH 33.1 (25.0-35.0) pg MCHC 35.9 (31.0-37.0) g/dL RDW 12.3 (11.5-15.5) % Plt Count 220 (150-450) k/uL MPV 7.5 PT 10.7 (9.0-12.0) sec INR 1.0 (<1.2) APTT 34.5 H (22.0-30.0) sec Sodium 132 L (137-145) mmol/L Potassium 3.8 (3.5-5.1) mmol/L Chloride 97 L (98-107) mmol/L Carbon Dioxide 28 (22-30) mmol/L Anion Gap 7 mmol/L BUN 34 H (9-20) mg/dL Creatinine 0.89 (0.66-1.25) mg/dL Est GFR (CKD-EPI)AfAm >90 (>60 ml/min/1.73 sqM) Est GFR (CKD-EPI)NonAf >90 (>60 ml/min/1.73 sqM) Glucose 120 H (74-99) mg/dL Plasma Lactic Acid Arya (0.7-2.0) mmol/L Calcium 8.4 (8.4-10.2) mg/dL Total Bilirubin 1.1 (0.2-1.3) mg/dL AST 245 H (17-59) U/L ALT 82 H (4-49) U/L Alkaline Phosphatase 69 (38-126) U/L Total Protein 5.8 L (6.3-8.2) g/dL Albumin 3.3 L (3.5-5.0) g/dL Lipase 18 L (23-300) U/L 08/25/22 Range/Units 08:40 WBC (3.8-10.6) k/uL RBC (4.30-5.90) m/uL Hgb (13.0-17.5) gm/dL Hct (39.0-53.0) % MCV (80.0-100.0) fL MCH (25.0-35.0) pg MCHC (31.0-37.0) g/dL RDW (11.5-15.5) % Plt Count (150-450) k/uL MPV PT (9.0-12.0) sec INR (<1.2) APTT (22.0-30.0) sec Sodium (137-145) mmol/L Potassium (3.5-5.1) mmol/L Chloride (98-107) mmol/L Carbon Dioxide (22-30) mmol/L Anion Gap mmol/L BUN (9-20) mg/dL Creatinine (0.66-1.25) mg/dL Est GFR (CKD-EPI)AfAm (>60 ml/min/1.73 sqM) Est GFR (CKD-EPI)NonAf (>60 ml/min/1.73 sqM) Glucose (74-99) mg/dL Plasma Lactic Acid Arya 2.1 H* (0.7-2.0) mmol/L Calcium (8.4-10.2) mg/dL Total Bilirubin (0.2-1.3) mg/dL AST (17-59) U/L ALT (4-49) U/L Alkaline Phosphatase (38-126) U/L Total Protein (6.3-8.2) g/dL Albumin (3.5-5.0) g/dL Lipase (23-300) U/L Disposition Clinical Impression: Bowel obstruction Disposition: OTHER INSTITUTION NOT DEFINED Condition: Serious Referrals: Doug Conrad MD [Primary Care Provider] - 1-2 days Time of Disposition: 10:24 - Out of Hospital Transfer - Req. Specs Out of Hospital Transfer - Requested Specifics: Other Emergency Center ([facility]
[2022-08-25 09:07] LABS: Partial Thromboplastin Time 34.5 sec (22.0-30.0); Prothrombin Time 10.7 sec (9.0-12.0)
[2022-08-25 09:10] LABS: HCT 42.7 % (39.0-53.0); HGB 15.3 gm/dL (13.0-17.5); MCH 33.1 pg (25.0-35.0); MCHC 35.9 g/dL (31.0-37.0); MCV 92.4 fL (80.0-100.0); Mean Platelet Volume 7.5; Platelet Count 220 k/uL (150-450); RBC 4.62 m/uL (4.30-5.90); RDW 12.3 % (11.5-15.5); WBC 10.1 k/uL (3.8-10.6)
--- NOTE | 2022-08-25 09:13 | XR ---
EXAMINATION TYPE: XR abdomen 1V DATE OF EXAM: 08/25/2022 COMPARISON: NONE HISTORY: Pain TECHNIQUE: One view abdominal series FINDINGS: There are multiple dilated small bowel loops with air-fluid levels again noted. Retained stool throug hout the right colon. Could not exclude a small amount of free air under right hemidiaphragm. Small r ight-sided pleural effusion noted. Severe arthropathy of the hips and hypertrophic degenerative curry es of the spine. No suspicious calcifications. IMPRESSION: 1. Findings are suspicious for small bowel obstruction with possible small amount of free intraperito luke air. Report called to referring clinician 9:08 AM 08/25/2022.
[2022-08-25 09:21] LABS: ALT 82 U/L (4-49); AST 245 U/L (17-59); African American GFR (CKD) >90 (>60 ml/min/1.73 sqM); Albumin 3.3 g/dL (3.5-5.0); Alkaline Phosphatase 69 U/L (38-126); Anion Gap 7 mmol/L; Blood Urea Nitrogen 34 mg/dL (9-20); Calcium 8.4 mg/dL (8.4-10.2); Carbon Dioxide 28 mmol/L (22-30); Chloride 97 mmol/L (98-107); Glucose 120 mg/dL (74-99); Lipase 18 U/L (23-300); Non-African American GFR(CKD) >90 (>60 ml/min/1.73 sqM); Potassium 3.8 mmol/L (3.5-5.1); Sodium 132 mmol/L (137-145); Total Bilirubin 1.1 mg/dL (0.2-1.3); Total Protein 5.8 g/dL (6.3-8.2)
[2022-08-25] MEDS ORDERED: ONDANSETRON 4 MG/2 ML VIAL IVP STA ×2 (09:24→12:07)
[2022-08-25] MEDS ORDERED: MORPHINE SULFATE 4 MG/ML SYRINGE IV STA (09:24)
[2022-08-25] MEDS ORDERED: SODIUM CHLORIDE 0.9% 1,000 ML IV STA (09:24)
--- NOTE | 2022-08-25 09:59 | CT ---
EXAMINATION TYPE: CT abdomen pelvis wo con DATE OF EXAM: 08/25/2022 COMPARISON: 08/23/2022 HISTORY: Abdominal pain, suspect free air. Was here yesterday and had AP w/contrast CT DLP: 884.8 mGycm Automated exposure control for dose reduction was used. TECHNIQUE: Helical acquisition of images was performed from the lung bases through the pelvis. FINDINGS: There are emphysematous changes in the lung bases. There is been interval development of a small righ t posterior basal infiltrate and small effusion. There is no free intraperitoneal air or fluid. The gallbladder is normal. There is no organomegaly involving the liver, pancreas, spleen or adrenal glands. There are no renal calcifications or hydronephrosis. Caliber the abdominal aorta is normal. There are multiple air and fluid-filled loops of dilated small bowel consistent with the mid to dista l small bowel obstruction. The wall of the sigmoid colon is diffusely prominent which could be secondary to poor distention with contrast but true sigmoid wall chronic inflammatory changes not excluded. There is no evidence of ac gely diverticular disease. There is no pelvic mass or adenopathy. The osseous structures are intact. IMPRESSION: 1. Findings consistent with mid to distal small bowel obstruction. 2. No free intraperitoneal air or fluid. 3. Development of a small right basilar infiltrate and tiny effusion. 4. Questionable diffuse wall thickening of the sigmoid colon as described above.
[2022-08-25] MEDS ORDERED: HYDROmorphone 1 MG/ML 1 ML SYRINGE IVP STA (10:11)
[2022-08-25] MEDS ORDERED: PIPERACILLIN-TAZOBACTAM 3.375 GM in SODIUM CHLORIDE 0.9% 100 ML IVPB STA (10:22)
[2022-08-25 10:33] LABS: Band Neutrophils % 11 %; Lymphocytes # (M) 0.51 k/uL (1.0-4.8); Neutrophils % (M) 82 %; Nucleated Red Blood Cells 0 /100 WBC (0-0); Total Cells Counted 100
[2022-08-25 10:34] LABS: RBC Morphology Normal; Toxic Vacuolation Present
[2022-08-25 10:57] VITALS: TEMP 98.7
[2022-08-25 11:34] VITALS: BP 119/67; PULSE 102
[2022-08-25] MEDS ORDERED: LORazepam 2 MG/ML INJ IV STA (11:37)
--- NOTE | 2022-08-25 12:06 | XR ---
EXAMINATION TYPE: XR chest 1V DATE OF EXAM: 08/25/2022 COMPARISON: 08/24/2022 HISTORY: NG tube placement TECHNIQUE: Single frontal view of the chest is obtained. FINDINGS: NG tube is seen with the tip overlying the gastric body. Arthropathy of the shoulders. The re is bilateral subsegmental consolidation stable. No overt failure or pneumothorax. There is limited inspiration. Suspect underlying COPD. IMPRESSION: 1. Basilar atelectasis or infiltrate stable. 2. NG tube is seen with the tip overlying the gastric body
== END 2022-08-25 12:12 | disposition other institution (70) ==
LOC: EC 08:14
DX: K56.609 Unspecified intestinal obstruction, unspecified as to partial versus complete obstruction (principal); J44.9 Chronic obstructive pulmonary disease, unspecified; I25.2 Old myocardial infarction; F41.9 Anxiety disorder, unspecified; F32.A Depression, unspecified; F17.200 Nicotine dependence, unspecified, uncomplicated; F12.90 Cannabis use, unspecified, uncomplicated; Z88.5 Allergy status to narcotic agent; Z88.8 Allergy status to other drugs, medicaments and biological substances; Z79.899 Other long term (current) drug therapy
CPT/HCPCS: 99285; 96365; 96375 ×4; 96376; 96361; 36415; 93005; 80053; 83605; 83690; 85025; 85610; 85730; 71045; 74018; 74176; 43753; J2543; J2060; J2270; J2405; J1170